=== PATIENT | male | born 1955 | race Caucasian/White ===

== ENCOUNTER 2019-04-01 01:46 | Inpatient (IN) | payer MEDICARE, MEDICAID, SELFPAY ==
[2017-06-25 19:14] VITALS: BMI 38.5
[2019-04-01] VITALS (16 sets, daily range): BP systolic 112–153; BP diastolic 71–94; PULSE 63–134; RESP 14–23; TEMP 36.5–36.8; O2SAT 93–97; BMI 39.9
--- NOTE | 2019-04-01 02:00 | EKG12_ITS ---
Test Reason : AM EKG Blood Pressure : / mmHG Vent. Rate : 107 BPM Atrial Rate : 127 BPM P-R Int : 000 ms QRS Dur : 078 ms QT Int : 376 ms P-R-T Axes : 000 022 177 degrees QTc Int : 501 ms Atrial fibrillation with rapid ventricular response ST & Marked T wave abnormality, consider anterolateral ischemia Abnormal ECG Confirmed by LIDIA JONES, JOSUE ([id number]), slot editor BETTY LILLY ([id number]) on 04/03/2019 2:33:55 PM Referred By: DIANA Confirmed By:JOSUE MURILLO MD
--- NOTE | 2019-04-01 03:49 | PCM.HP.STD ---
Problem List (1) NSTEMI (non-ST elevated myocardial infarction) Status: Acute (2) A-fib Status: Chronic (3) Tobacco abuse Status: Chronic (4) Overweight Status: Chronic (5) Hyperlipidemia Status: Chronic History of Present Illness Date of Admission: 04/01/19 Chief Complaint: chest pain Patient is a 53-year-old with a significant history of CAD status post stent; cardiomyopathy; tobacco abuse and atrial fibrillation status post unsuccessful DCCV who presented initially at [place] ED with progressively worsening excruciating chest pain that started about 45 minutes prior to presentation. He describes his chest pain as intense pressure. His chest pain span across his entire chest; from right to left. Although the chest pain was mostly centered at the substernal area. His chest pain radiated to his bilateral jaw and to his bilateral arms. The pain on his right was more prominent than his left arm. He describes the pain in his arm as numbness and tingling. His chest pain started when he was rolling a cover over a swimming pool. Associated with his symptoms is diaphoresis and SOB. Patient was found with A. fib and RVR at ED with ventricular rate of 129. He was given Cardizem IV 20 mg bolus x2 and his ventricular rate dropped to 93 but he was still in A. fib. His initial troponin at [place] ED was 0.015 which was normal. His troponin increased to 0.89 which is within the critical range at the lab at [place] [facility]. Patient received aspirin 324 mg at the emergency department and was given therapeutic Lovenox at 2309 (03/31/2019). He takes his Xarelto and other medications intermittently because of affordability. He reports that on the day of presentation he took his Xarelto. Also he took his Plavix before going to the emergency department. His white count was 12,400. Chest x-ray showed mild diffuse interstitial prominence which may be related to fibrosis. Patient was empirically on ceftriaxone and azithromycin (03/31/2019 at time of 2018). Although, the emergency department doctor at [place] reported that patient had a cough and some mild chills; upon arrival at our hospital ([facility]) patient denies coughing or having chills. BNP was unremarkable. Past Medical History Past Medical History (Chronic Problems): Chronic Problems (Last Updated 02/09/18 @ 08:01 by Karolina Hand) A-fib (Chronic) Presence of stent in coronary artery (Chronic) PTCA/BMS to prox/mid RCA with thrombectomy in the mid RCA09/05; PTCA/YAQUELIN of the in stent restenosis in the prox to mid RCA and mid to distal RCA 02/12/13; PTCA/YAQUELIN to the mid CX @ [facility] 08/29/14 Cardiomyopathy (Chronic) Persistent atrial fibrillation (Chronic) Hypertension (Chronic) Atherosclerotic heart disease of [place] coronary artery without angina pectoris (Chronic) Tobacco abuse (Chronic) Overweight (Chronic) Hyperlipidemia (Chronic) Medical History: Medical History (Last Reviewed 04/01/19 @ 04:50 by Kemal Thao MD) 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) I25.2 09/05 Cardiomyopathy (Chronic) I42.9 Persistent atrial fibrillation (Chronic) I48.1 Hypertension (Chronic) I10 Atherosclerotic heart disease of [place] coronary artery without angina pectoris (Chronic) I25.10 Abscess of deep perineal space (Inactive) N34.0 Tobacco abuse (Chronic) Z72.0 Overweight (Chronic) E66.3 Hyperlipidemia (Chronic) E78.5 Allergies No Known Allergies Allergy (Verified 07/10/17 14:25) Home Medications: Ambulatory Orders Medication Instructions Recorded Nitroglycerin (INPATIENT USE) 0.4 mg SL PRN 03/26/13 [Nitrostat] carvedilol 6.25 mg tablet 6.25 mg PO BID #60 tab 02/08/18 clopidogrel 75 mg tablet 75 mg PO DAILY #30 tab 02/08/18 digoxin 125 mcg tablet 125 mcg PO DAILY #30 tab 02/08/18 pravastatin 80 mg tablet 80 mg PO QHS #30 tab 02/08/18 rivaroxaban 20 mg tablet 20 mg PO DAILY #30 tab 02/08/18 Surgical History: Surgical History (Last Reviewed 04/01/19 @ 04:50 by Kemal Thao MD) Presence of stent in coronary artery (Chronic) Z95.5 PTCA/BMS to prox/mid RCA with thrombectomy in the mid RCA09/05; PTCA/YAQUELIN of the in stent restenosis in the prox to mid RCA and mid to distal RCA 02/12/13; PTCA/YAQUELIN to the mid CX @ [facility] 08/29/14 Status post incision and drainage (Inactive) Z98.890 Karyn-rectal 06/25/17 Postsurgical percutaneous transluminal coronary angioplasty (PTCA) status Z98.61 PTCA/BMS to prox/mid RCA with thrombectomy in the mid RCA09/05; PTCA/YAQUELIN of the in stent restenosis in the prox to mid RCA and mid to distal RCA 02/12/13; PTCA/YAQUELIN to the mid CX @ [facility] 08/29/14 Smoking Status: Heavy Smoker (>10/day) Tobacco Use: Cigarettes - *Family History Maternal Family History: Family History (Last Reviewed 04/01/19 @ 04:51 by Kemal Thao MD) Father CAD (coronary artery disease) COPD (chronic obstructive pulmonary disease) Mother CAD (coronary artery disease) Brother CAD (coronary artery disease) Brother CAD (coronary artery disease) Other Heart disease History Items: Heart Disease Review of Systems Constitutional: Denies: Chills, Fever, Weight Change HEENT: Denies: Head Aches, Sinus Congestion, Sinus Drainage Cardiovascular: Reports: Chest Pain, Chest Pressure. Denies: Palpitations Respiratory: Reports: Shortness of Breath. Denies: Cough, Sputum production Gastrointestinal: Denies: Abdominal Pain, Nausea, Vomiting Genitourinary: Denies: Dysuria Musculoskeletal: Denies: Joint Pain, Joint Tenderness Skin: Denies: Rash, Wounds Neurological: Reports: Numbness, Tingling. Denies: Focal weakness Psychiatric: Denies: Anxiety, Depression, Homicidal Ideations, Suicidal Ideations Hematologic/ Lymphatic: Denies: Easy Bruising, Easy Bleeding VTE Information - Inpt Only VTE Present on Admission: No VTE Mechan Device Prophylaxis: None VTE Pharm Prophylaxis ordered?: No Reason prophylaxis not ordered:: Treatment Not Indicated - Recieved ther Patient Problems: Active and Suspected Problems (Last Updated 02/09/18 @ 08:01 by Karolina Hand) NSTEMI (non-ST elevated myocardial infarction) (Acute) - Physical Exam General: Alert, Oriented x3, Cooperative HEENT: Atraumatic, PERRLA, EOMI, Normocephalic Neck: Supple, No JVD, Negative Carotid Bruits Lungs: Clear to auscultation, Normal air movement, Wheezes - Expiratory Cardiovascular: Normal S1, Normal S2, No murmurs, Irregular Rate Abdomen: Bowel Sounds Present, Soft, Non Tender Extremities: No edema, Capillary Refill Less than 3 Seconds Skin: No rashes, No breakdown Musculoskeletal: No Tenderness to Palpation of Joints or Extremities Neurological: Cranial nerves II-XII grossly intact Psych/Mental Status: Normal Affect, Appropriate Vital Signs Temp Pulse Resp BP Pulse Ox 97.7 F L 92 16 114/79 96 04/01/19 01:52 04/01/19 01:52 04/01/19 01:52 04/01/19 01:52 04/01/19 01:52 Oxygen Delivery Method Room Air Weight: 119 kg Body Mass Index (BMI) 39.9 Laboratory Tests Past 24 Hrs 04/01/19 03:12 Troponin I 12.600 H* Assessment/Plan All Active Problems (Last Updated 02/09/18 @ 08:01 by Karolina Hand) NSTEMI (non-ST elevated myocardial infarction) (Acute) Patient is a 53-year-old with a significant history of CAD status post stent; cardiomyopathy; tobacco abuse and atrial fibrillation unsuccessful DCCV who presented initially at [place] ED with typical chest pain and with elevated troponin consistent with non-ST elevation NM . NSTEMI Place on a monitored bed at PCU CXR independently reviewed confirms no acute cardiopulmonary process. Chest x-ray showed mild diffuse interstitial prominence which may be related to fibrosis. I agree with with radiologist interpretation. EKG from [place] ED was reviewed. It showed atrial fibrillation with ventricular rates of 129. EKG was done at the hospital and it showed ventricular rates in the 80s with patients in A. fib. ASA 81 mg p.o. daily. At home he does not take aspirin because he is on Xarelto and Plavix. SL NTG 0.4 mg prn as needed for chest pain Morphine as needed for pain We will check lipid panel. Statin: Patient is on pravastatin 80 mg nightly; continue. Troponin from [place] ED was 0.015. While at [place] ED it stephen to 0.89. At our hospital ([facility]) initial troponin was 12.6 . That was markedly elevated above previous value from [place] ED so a repeat (stat) was ordered to confirm. The repeat troponin done at 38 minutes apart was 12.90. We will continue serial troponin. Of note patient received therapeutic dose of Lovenox as stated in HPI. Also patient took Plavix before going to [place] emergency department. And patient was given 325 mg of aspirin at [place] ED. He reported that he took his Xarelto on 03/31/2019. Continue Plavix. Stat EKG as needed for chest pain. We will get PT/INR and will start patient on gentle IV hydration. We will keep patient n.p.o. Cardiology Consult. Discussed with patient about case management/rn social work consult to discuss finances for medication. However, Patient declined stating that he should be able in a position to afford his medications. Afib Place on PCU on telemetry Serial cardiac enzymes as above. Anticoagulation as above. Potassium at was 12 emergency department was 4.0. Magnesium was 2.0. TSH was unremarkable. Continue digoxin. Continue metoprolol. Of note patient received Cardizem IV bolus at [place] emergency department as mentioned in HPI. Dsypnea Secondary to non-ST elevation NM on pulmonary fibrosis. Patient has no fever. Although he had leukocytosis of 12,400 this could be reactive. Trend CBC Clinical monitoring with no antibiotics at this time. He has some wheezes on auscultation but this could be because of smoking. Will defer albuterol for now as it might increase his heart rate. Tobacco abuse Counseled Declined nicotine patch. Elevated creatinine His creatinine at was [place] ED was 1.31. Review of old records show that this is within his baseline. Trend BMP DVT Prophylaxis Took Xarelto in the last 24 hours. Received therapeutic dose of Lovenox in less than 12 hours. Code Visit Inpatient E&M: 24268 Init Hosp L3
[2019-04-01] MEDS: 0.9% Normal Saline 1,000 ML 75 ML IV (04:19)
[2019-04-01 04:47] LABS: Cholesterol 143 mg/dL (200); High Density Lipoprotein 32 mg/dL; Triglycerides 194 mg/dL; Very Low Density Lipoprotein 39 mg/dL (5-40)
[2019-04-01 06:06] LABS: International Normalized Ratio 1.2; Prothrombin Time (Protime)PT. 15.2 SECONDS (11.7-14.9)
[2019-04-01] MEDS: Clopidogrel Bisulfate 75 MG Tablet PO (06:40)
[2019-04-01] MEDS: Carvedilol 6.25 MG Tablet PO ×2 (06:40→10:24)
[2019-04-01] MEDS: Aspirin E.C. 81 MG Tablet PO (06:40)
[2019-04-01] MEDS: Digoxin 125 MCG Tablet PO (06:40)
--- NOTE | 2019-04-01 08:44 | ECHOD_ITS ---
Reason For Study: CP Procedure This was a 2D Doppler, Color Flow transthoracic echocardiogram. Exam performed portable in patient room. Left Ventricle Normal LV size. Moderate concentric left ventricular hypertrophy. Severe segmental systolic dysfunction (see wall motion). The estimated ejection fraction is 20 %. Unable to assess diastolic dysfunction. Infero-Basal: Hypokinetic. Mid-Anterior : Hypokinetic. Mid-Lateral : Hypokinetic. Mid- Posterior: Hypokinetic. Mid-Inferior: Hypokinetic. Mid-inferoseptal : Akinetic. Mid-anteroseptal : Akinetic. [place] : Akinetic. Right Ventricle Normal RV size. Normal systolic function. Atria The left atrium is moderately enlarged. The right atrium is mildly enlarged. No doppler evidence for ASD. Mitral Valve There is mild mitral annular calcification. Extension of the mitral annular calcification onto the posterior mitral valve leaflet. Trivial mitral valve insufficiency. Tricuspid Valve Normal tricuspid valve. Mild tricuspid valve insufficiency. Right ventricular systolic pressure estimated to be 53 mmHg. Aortic Valve Trisinus/trileaflet aortic valve. Normal aortic valve. Pulmonic Valve The pulmonic valve is not well visualized. Trivial eccentric pulmonic valve insufficiency. Great Vessels The aortic root is not well visualized. Pericardium/Pleural No pericardial effusion. MMode/2D Measurements & Calculations LVIDd: 4.7 cm IVSd: 1.5 cm LA dimension: 4.0 cm LVIDs: 3.7 cm LVPWd: 1.4 cm RVDd: 2.9 cm FS: 20.8 % LAV(MOD-bp): 59.8 ml LVAd ap4: 28.1 cm2 SV(MOD-sp4): 14.7 ml LAV(MOD-bp) Indexed: 26.3 ml/m2 EDV(MOD-sp4): 86.4 ml LAV(MOD-sp2): 62.4 ml EDV(sp4-el): 85.6 ml LAV(MOD-sp4): 55.6 ml LVAs ap4: 25.3 cm2 ESV(MOD-sp4): 71.6 ml ESV(sp4-el): 70.6 ml EF(MOD-sp4): 17.1 % EF(sp4-el): 17.5 % SV(sp4-el): 15.0 ml LA A4 area: 19.8 cm2 Doppler Measurements & Calculations MV E max thony: 100.7 cm/sec Ao V2 max: 97.2 cm/sec LV V1 max: 78.6 cm/sec Ao max P.8 mmHg LV V1 max P.5 mmHg PA V2 max: 77.7 cm/sec TR max thony: 354.1 cm/sec TR max P.2 mmHg Interpretation Summary Severe segmental systolic dysfunction (see wall motion). The estimated ejection fraction is 20 %. Moderate concentric left ventricular hypertrophy. The left atrium is moderately enlarged. The right atrium is mildly enlarged. There is mild mitral annular calcification. Extension of the mitral annular calcification onto the posterior mitral valve leaflet. Trivial mitral valve insufficiency. Mild tricuspid valve insufficiency. Trivial eccentric pulmonic valve insufficiency. Right ventricular systolic pressure estimated to be 53 mmHg. Unable to assess diastolic dysfunction. Ordering Physician: Andrew Anaya MD Referring Physician: Brock Connor Performed By: Damian Ramos RCS
[2019-04-01 09:08] LABS: Partial Thromboplast Time 36.3 Seconds (24.1-36.2)
--- NOTE | 2019-04-01 09:34 | PN_ITS ---
Patient Problems: Active and Suspected Problems (Last Reviewed 04/01/19 @ 04:50 by Kemal Thao MD) NSTEMI (non-ST elevated myocardial infarction) (Acute) Subjective: Patient was admitted in the early hours of 04/01/2019 with a complaint of chest pain started about 45 minutes prior to presentation. He described it as an immense pressure which radiated up towards neck and was mainly substernal. He also had assisted diaphoresis and shortness of breath and was found to be in A. fib with RVR was in the emergency room. Heart rate stabilized with Cardizem bolus no history repeat A. fib. Initial troponin done at [place] emergency department was 0.015 which trended up to 0.89. He was given aspirin and given a dose of therapeutic Lovenox and transferred to [place]. On arrival, repeat troponin was 12. He has been managed for non-STEMI. Patient seen and examined. He denies any chest pain. He has no complaints. Denies any palpitations or dizziness, diarrhea or vomiting. Review of systems otherwise negative. Labs and vitals reviewed. Budget Examiner on board. Vitals/I&O's: Vital Signs Temp Pulse Resp BP Pulse Ox 97.9 F 93 14 153/85 H 96 04/01/19 07:54 04/01/19 07:54 04/01/19 08:02 04/01/19 07:54 04/01/19 08:02 Oxygen Delivery Method Room Air Weight: 262 lb 5.601 oz Body Mass Index (BMI) 39.9 Intake and Output for Last 24 Hours 03/30/19 03/31/19 04/01/19 23:59 23:59 23:59 Intake Total 50 / 50 Balance 50 / 50 General: Alert, Oriented x3, Cooperative, No apparent distress HEENT: Atraumatic, PERRLA, EOMI, Normocephalic Oral: Moist Mucosa Neck: Supple Lungs: Clear to auscultation, Normal air movement Cardiovascular: Normal S1, No murmurs, Irregular Rate - in Afib, rate controlled Abdomen: Bowel Sounds Present, Soft, Non Tender Extremities: No clubbing, No cyanosis, No edema, Capillary Refill Less than 3 Seconds Skin: No rashes, No breakdown Musculoskeletal: No Tenderness to Palpation of Joints or Extremities Lymphatic: No Cervical, Supraclavicular, or Inguinal Adenopathy Neurological: Cranial nerves II-XII grossly intact, Neuro grossly intact, Motor Exam 5/5 strength throughout Psych/Mental Status: Normal Affect, Appropriate, Alert and oriented to time, place, person, mood and affect Laboratory Results 04/01/19 03:12: Troponin I 12.600 H* 04/01/19 03:50: Troponin I 12.900 H* 04/01/19 03:50: Triglycerides 194, Cholesterol 143, LDL Cholesterol 72, VLDL Cholesterol 39, HDL Cholesterol 32 L 04/01/19 05:40: PT 15.2 H, INR 1.2 04/01/19 05:40: APTT 36.3 H Current Medications Aspirin (Ecotrin) 81 mg PO DAILY@0800 [facility] Last Admin: 04/01/19 06:40 Dose: 81 mg Documented by: Carvedilol (Coreg) 12.5 mg PO BID [facility] Clopidogrel Bisulfate (Plavix) 75 mg PO DAILY [facility] Last Admin: 04/01/19 06:40 Dose: 75 mg Documented by: Dextrose (D50w Syringe) 0 gm IV X1 PRN; Protocol PRN Reason: Hypoglycemia Digoxin (Lanoxin) 125 mcg PO DAILY [facility] Last Admin: 04/01/19 06:40 Dose: 125 mcg Documented by: Glucagon () 1 mg IM .X1 PRN PRN Reason: Hypoglycemia Heparin Sodium (Porcine) (Heparin Na) 0 unit IV UD PRN; Protocol Sodium Chloride () 1,000 mls @ 75 mls/hr IV .[id number] [facility] Stop: 04/01/19 16:59 Last Admin: 04/01/19 04:19 Dose: 75 mls/hr Documented by: Heparin Sodium/Dextrose () 25,000 units in 250 mls @ 16 mls/hr IV .[id number] [facility]; Protocol Morphine Sulfate () 2 mg IV Q3H PRN PRN PRN Reason: Severe Pain (7-10/10) Nitroglycerin (Nitrostat) 0.4 mg SUBLINGUAL Q5M PRN PRN Reason: CARDIAC/CHEST PAIN Ondansetron HCl (Zofran) 4 mg IV Q8H PRN PRN PRN Reason: NAUSEA/VOMITING Pravastatin Sodium (Pravachol) 80 mg PO QHS [facility] Sodium Chloride () 5 - 15 ml IV UD PRN PRN Reason: SALINE FLUSH Medical Necessity - Tobacco Use Smoking Status: Heavy Smoker (>10/day) Tobacco Use: Cigarettes Assessment/Plan All Active Problems (Last Reviewed 04/01/19 @ 04:50 by Kemal Thao MD) NSTEMI (non-ST elevated myocardial infarction) (Acute) 1. NonSTEMI * troponin trended up to 12.9 * received therapeutic lovenox, also on plavix * on SL nitroglycerin prn and aspirin, as well as high intensity statin * cardiology on board; for cardiac cath today * 2.CAD s/p stents: on aspirin, plavix and statin and carvedilol. 3. Afib: * was in Afib with RVR on admission to the ED: HR improved after being given cardizem bolus, but is now better. on digoxin and carvedilol * failed direct cardioversion in the past * on xarelto; had not been compliant with it due to inability to afford it regularly. * 4. Elevated Cr: Cr on admission from [place] ED was 1.31. baseline from our records is ~ 1. WIll repeat BMP this morning and review Cr 5. Nicotine dependence: smokes ~ 1.5 packs daily. Counselled to quit. DVT prophylaxis: therapeutic lovenox Code Visit Inpatient E&M: 52285 Subs Hosp L3
[2019-04-01 10:18] LABS: Anion Gap 6 (5-15); BUN 11 mg/dL (7-18); BUN/Creat Ratio 12.3 RATIO (10-20); Calcium,Total 8.7 mg/dL (8.5-10.1); Chloride 105 mmol/L (98-107); EST Glomerular Filtration Rate 92 mL/min (>60); Est Glom Filt Rate - Afr Amer 111 mL/min (>60); Estimated Creatinine Clearance 83.39 ml/min; Glucose 101 mg/dL (74-106); Sodium Level 137 mmol/L (136-145)
[2019-04-01] MEDS: HEPARIN/D5w 25,000 UNITS 25,000 UNITS/250 ML IV.SOLN. 16 UNITS IV (10:26)
--- NOTE | 2019-04-01 10:51 | CON.PCM_ITS ---
Problem List (1) A-fib Status: Chronic (2) NSTEMI (non-ST elevated myocardial infarction) Status: Acute (3) CAD in [place] artery Status: Chronic (4) Presence of stent in coronary artery Status: Chronic Comment: PTCA/BMS to prox/mid RCA with thrombectomy in the mid RCA09/05; PTCA/YAQUELIN of the in stent restenosis in the prox to mid RCA and mid to distal RCA 02/12/13; PTCA/YAQUELIN to the mid CX @ [facility] 08/29/14 (5) Cardiomyopathy Status: Chronic (6) Hyperlipidemia Status: Chronic (7) Hypertension Status: Chronic Reason for Consult Date of Consultation: 04/01/19 History of Present Illness: The patient is a 63 year old white male with a past medical history of lipidemia, hypertension, CAD, PCI, ischemic mediated cardiomyopathy, atrial fibrillation, who resents for evaluation of ongoing concerns of chest discomfort, neck discomfort, right upper extremity discomfort/paresthesias, weakness of breath, nausea, sensation of an elevated heart rate, and subsequent findings of atrial fibrillation with RVR and abnormal cardiac enzymes compatible with a non-ST segment elevation FL. He states that after his over a year ago he decided to give up. He did not keep his outpatient cardiovascular follow-up appointments. He states he has not been compliant with his medications. He notes he takes them at times and then at other times does not. He states that he is not been feeling well for some time now. Yesterday while helping someone else with a swimming pool cover he developed the aforementioned symptoms. He elected to present to his local emergency department. He was evaluated there and found to have concerns of his cardiovascular disease and was subsequently transferred to [facility] for further evaluation and care. He notes overall he does feel somewhat better at this time. However, he states he knows he is not normal. He admits to have symptoms occasionally compatible with orthopnea. He states he does have lower extremity edema that waxes and wanes. He has had no near syncope or syncope. He believes his heart rate has been elevated for some time. He states that he has taken his antiplatelet and anticoagulant therapy on and off. He knows he took both of them yesterday. However, he states that he does not recall taking them for several days prior to yesterday. He has had abnormal troponin I levels. They have increased. His ECG is demonstrated atrial fibrillation. His ECG does demonstrate T wave changes potentially compatible with myocardial ischemia in the anterolateral distribution. He has been treated medically. This is included restarting medical management with antiplatelet therapy and anticoagulant therapy, his beta-shawn therapy, his additional rate control therapy with his digitalis, and his lipid-lowering therapy. [] Past Medical History Allergies/Adverse Reactions: Allergies No Known Allergies Allergy (Verified 07/10/17 14:25) Home Medications: Ambulatory Orders Medication Instructions Recorded Nitroglycerin (INPATIENT USE) 0.4 mg SL PRN 03/26/13 [Nitrostat] carvedilol 6.25 mg tablet 6.25 mg PO BID #60 tab 02/08/18 clopidogrel 75 mg tablet 75 mg PO DAILY #30 tab 02/08/18 digoxin 125 mcg tablet 125 mcg PO DAILY #30 tab 02/08/18 pravastatin 80 mg tablet 80 mg PO QHS #30 tab 02/08/18 rivaroxaban 20 mg tablet 20 mg PO DAILY #30 tab 02/08/18 Past Medical History (Chronic Problems): Chronic Problems (Last Reviewed 04/01/19 @ 04:50 by Kemal Thao MD) A-fib (Chronic) CAD in [place] artery (Chronic) Presence of stent in coronary artery (Chronic) PTCA/BMS to prox/mid RCA with thrombectomy in the mid RCA09/05; PTCA/YAQUELIN of the in stent restenosis in the prox to mid RCA and mid to distal RCA 02/12/13; PTCA/YAQUELIN to the mid CX @ [facility] 08/29/14 Cardiomyopathy (Chronic) Persistent atrial fibrillation (Chronic) Hypertension (Chronic) Atherosclerotic heart disease of [place] coronary artery without angina pectoris (Chronic) Tobacco abuse (Chronic) Overweight (Chronic) Hyperlipidemia (Chronic) - *Family History Maternal Family History: Family History (Last Reviewed 04/01/19 @ 04:51 by Kemal Thao MD) Father CAD (coronary artery disease) COPD (chronic obstructive pulmonary disease) Mother CAD (coronary artery disease) Brother CAD (coronary artery disease) Brother CAD (coronary artery disease) Other Heart disease History Items: Heart Disease Smoking Status: Heavy Smoker (>10/day) Tobacco Use: Cigarettes Review of Systems - Review of Systems General: Denies: Fever, Night Sweats, Fatigue Cardiovascular: Reports: Chest Discomfort, Chest Discomfort at Rest, Shortness of Breath, Orthopnea. Denies: PND, Peripheral Edema, Palpitations, Ligh theadedness, Dizziness, Near Syncope, Syncope Respiratory: Reports: Shortness of Breath. Denies: Cough, Sputum Production, Hemoptysis Gastrointestinal: Reports: Nausea. Denies: Hematemesis, Hematochezia, Melena Genitourinary: Denies: Dysuria, Hematuria Skin: Denies: Rash Subjectve: This is a 63-year-old white male lying in the supine position who appears to be resting reasonably comfortably at this time. Objective: Vital Signs Temp Pulse Resp BP Pulse Ox 98.0 F 63 18 112/83 H 94 04/01/19 10:23 04/01/19 10:23 04/01/19 10:23 04/01/19 10:23 04/01/19 10:23 Oxygen Delivery Method Room Air Weight: 262 lb 5.601 oz Body Mass Index (BMI) 39.9 Intake and Output for Last 24 Hours 03/30/19 03/31/19 04/01/19 23:59 23:59 23:59 Intake Total 50 / 50 Balance 50 / 50 General: Awake, Alert, Oriented x 3, Cooperative, No Acute Distress HEENT: Atraumatic, Normocephalic, PERRL, EOMI, Sclera Non Icteric Oral: Moist Mucosa Neck: Supple, Good ROM, No JVD Lungs: Clear to auscultation Cardiovascular: Irregular Rhythm, Normal S1, Normal S2 Vascular: No Carotid Bruits Abdomen: Bowel Sounds Present, Soft, Non Tender Extremities: Trace RLE Edema, Trace LLE Edema Neurological: No Focal Motor or Sensory Deficit Psych/Mental Status: Depressed 04/01/19 03:12: Troponin I 12.600 H* 04/01/19 03:50: Troponin I 12.900 H* 04/01/19 03:50: Triglycerides 194, Cholesterol 143, LDL Cholesterol 72, VLDL Cholesterol 39, HDL Cholesterol 32 L 04/01/19 05:40: PT 15.2 H, INR 1.2 04/01/19 05:40: APTT 36.3 H 04/01/19 05:40: Sodium 137, Potassium 4.0, Chloride 105, Carbon Dioxide 26.0, Anion Gap 6, BUN 11, Creatinine 0.90, Est GFR (MDRD) Af Amer 111, Est GFR (MDRD) Non-Af 92, BUN/Creatinine Ratio 12.3, Glucose 101, Calcium 8.7 Rhythm: Atrial fibrillation EKG: Atrial fibrillation; T wave abnormality-consider myocardial ischemia- anterolateral ECHO: 04-07-17: Interpretation Summary The study was technically difficult. Mild segmental systolic dysfunction (see wall motion). The estimated ejection fraction is 50 %. The left atrium is moderately enlarged. The right atrium is mildly enlarged. There is mild mitral annular calcification. Trivial mitral valve insufficiency. Trivial tricuspid valve insufficiency. Mild focal aortic valve calcification. Unable to estimate RV systolic pressure/pulmonary artery pressure due to technically difficult study. Transesophageal echocardiogram: 12-18-12 Interpretation Summary Mild segmental systolic dysfunction (see wall motion). The estimated ejection fraction is 45 %. The left atrium is enlarged. There is mild sponatenous contrast in the left atrium, No thrombus is detected in the left atrial appendage. The right atrium is enlarged. No obvious RA / appendage thrombus identified. Trivial mitral valve insufficiency. Trivial tricuspid valve insufficicncy. Trivial pulmonic valve insufficiency. Bubble contrast study negative far right to left intcratrial shunt. Normal appearing thoracic aorta. Stress Test: 08-05-14 IMPRESSION: 1. Rest and stress SPECT Cardiolite nuclear imaging demonstrate myocardial perfusion changes appearing compatible with an area of previous myocardial injury/infarction with periinfarct related myocardial ischemia especially involving the mid inferior segments. 2. The gated Cardiolite study reports an LVEF of 49%. Cardiac Cath: 08-29-14 1. Relatively normal resting left ventricular end-diastolic pressure 2. Left ventricle: Hypokinesis of the basal inferior segment with an estimated LVEF of 55% 3. Left main coronary artery: Large short vessel-angiographic normal 4. Left anterior descending coronary artery: Diffuse minimal luminal irregularities 5. Left circumflex coronary artery: Proximal 75% smooth eccentric appearing stenosis followed by distal 10 to 25% appearing stenosis 6. Right coronary: Large dominant vessel: Proximal to mid stented segment patent with minimal luminal irregularities with distal minimal luminal irregularities PCI: 08-29-14: [facility]: Single drug-eluting stent placed to the 70% lesion of the mid circumflex artery with minimal residual stenosis 02-12-13: [facility]: Successful stenting of the 75% in-stent restenosis of the proximal RCA and 75% stenosis in the mid RCA in-stent [id number] 09-23-12: [facility]: Accessible bare-metal stenting of the 80% stenosis in the proximal RCA and successful thrombectomy and successful bare-metal stenting of the 90% stenosis in the mid RCA DC cardioversion: Operative Report (Bank Date of Procedure: 03/26/13 Procedure: Synchronized biphasic DC cardioversion Indications Atrial fibrillation Consent: Per patient Anesthesia: Per CLEANING MANAGER with propofol 100 mg IV push xl Procedure: Synchronized biphasic DCcardioversion: 2002 xl: Result: Sinus rhythm with subsequent return to atrial fibrillation Synchronized biphasic DCcardioversion: 3003 xl: Results: Sinus rhythm Complications: No apparent complications Assessment/Plan 1. Atrial fibrillation The patient has ongoing atrial fibrillation. He will need continued combination therapy. This will include rate control therapy and anticoagulant therapy. Over time depending upon his clinical course he may need additional antiarrhythmic therapy. He has had in the past DC cardioversion to regain sinus rhythm. According to the past medical record this was last performed on 03-26-13. In conjunction with proceeding with his atrial fibrillation evaluation care he will also need evaluation care of his underlying CAD and non-ST segment elevation FL. 2. Non-ST segment elevation FL The patient has findings compatible with a non-ST segment elevation FL. He has a history of CAD and is undergone PCI in the past. He will need to be monitored. He will continue medical therapy. He should be considered for further evaluation with diagnostic cardiac catheterization. The procedure and risks were discussed with him. He was agreeable to this approach. However prior to proceeding with such, it would be reasonable based on his anticoagulation status with his oral anticoagulants, to allow those medications to dissipate somewhat prior to having an invasive procedure in attempt to minimize any obvious adverse hemorrhagic events. 3. CAD status post PCI The patient will need to be monitored as noted above. He will continue medical therapy as deemed appropriate. He will proceed with further noninvasive and invasive evaluation as deemed appropriate over time. 4. Cardiomyopathy The patient will have reevaluation of his left ventricular wall motion systolic function with a transthoracic echocardiogram as he goes through his ongoing evaluation and care. 5. Hyperlipidemia He will continue risk factor evaluation and care. 6. Hypertension The patient's blood pressure will be followed. He will continue medical management. Comment: The patient's case was discussed and reviewed with the patient and previously with the [facility] staff. This note was generated using a voice recognition system and there may be incorrect words, spelling or punctuation that were not noted when reviewing the office note prior to saving.
--- NOTE | 2019-04-01 11:43 | CASEMGMT ---
SW reviewed chart and noted patient was depressed. SW met with patient, introduced self and role at [facility]. SW asked patient how things were going and he said he was ok. He said he is just worried about his cat. He said his cat and sisters is all he has as his 1 1/2 years ago. Sw asked if he has gone to any support groups to help him cope with his loss. He said he has not and he will be fine. SW asked about medications. He said he has not been getting them as he has co-pays and forgot to pick the medicine up. He has a PCP, but he has not seen him in awhile. He said he doesn't go to the doctor unless he is practically dying. SW offered a list of local mental health providers and/or support groups, but patient declined. He said he will be fine and thanked MONIKA for caring. SW told him no problem and if he changes his mind and feels like he would like to talk more he can always ask for Social Work. Bonny LEE MSW
--- NOTE | 2019-04-01 13:10 | CASEMGMT ---
[facility], the following are in-network tertiary facilities: [facility], [facility], [facility], [facility], [facility], [facility], [facility], [facility], [facility], and . Mack KING CM
--- NOTE | 2019-04-01 13:56 | CASEMGMT ---
CHRISTINE GALLEGOS assessment: Face to Face with patient for initial transition planning/care coordination assessment. CHRISTINE GALLEGOS introduced self and role at [facility], pt voices understanding and consents to assessment at this time. Pt is sitting up in bed eating lunch in no distress at this time. Pt is A/Ox4 at this time and answers all questions appropriately at this time. Care providers, pharmacy, and demographics verified/updated at this time. Pt's address, account contact associate, and phone numbers were all incorrect at this time. PCP: [facility] Specialists: Pt states no current specialists at this time. Preferred Pharmacy: [facility] Insurance: [facility] Prescription Benefit: Yes Living Will/HPOA: Pt states does not have LW/HPOA and declines info at this time. LNOK: Kate Bauer, sister-pt cannot remember sister's phone number at this time but will attempt to obtain. Living Arrangements: Pt states lives with sister and her boyfriend in 1 story home and states no concerns at home at this time. Pt is independent with ADL's. Transportation: Pt states family/friends drive and states has transportation concerns at times but states does have resources for same. DME/HHC: Pt states does not have any current DME and denies need for any at this time. Pt states does not have hx of HHC or SNF in the past. Pt states no concerns with going home at time of discharge. Pt states is disabled. Pt states smokes 1.5pack/day but does not drink ETOH. Pt states no further concerns/needs at this time. CM to follow for any further discharge planning/needs. Advised pt to ask for CM if any further questions/concerns/needs arise, voices understanding. Pt Goal: Home Plan: [place] CHRISTINE GALLEGOS
[2019-04-01 17:18] LABS: Partial Thromboplast Time 81.3 Seconds (24.1-36.2)
[2019-04-01] MEDS: Carvedilol 12.5 MG Tablet PO (21:48)
[2019-04-01] MEDS: Pravastatin 80 MG Tablet PO (21:48)
[2019-04-01 23:26] LABS: Partial Thromboplast Time 72.6 Seconds (24.1-36.2)
[2019-04-02] VITALS (31 sets, daily range): BP systolic 95–143; BP diastolic 68–99; PULSE 83–109; RESP 13–26; TEMP 36.3–37; O2SAT 93–98; BMI 39.8
[2019-04-02] MEDS: 0.9% NaCl Peripheral Flush Adult/Peds IV ×2 (01:12→06:43)
--- NOTE | 2019-04-02 03:44 | NURSING ---
Pt declined heart cath teaching at this time.
[2019-04-02 05:40] LABS: Absolute Lymphocyte Count 2.36 X10^3/uL (0.83-4.51); Absolute Neutrophil Count 10.8 X10^3/uL (2.0-7.7); Basophil# 0.06 X10^3/uL; Basophil% 0.4 % (0-1); Eosinophil# 0.02 X10^3/uL; Eosinophils% 0.1 % (0-5); Hematocrit 48.4 % (40-54); Hemoglobin 16.1 g/dL (13.0-16.5); Lymphocyte # 2.36 X10^3/ul (4.0); Lymphocyte % 16.6 % (19-41); Mean Corp Hgb Conc 33.3 g/dL (32-36); Mean Corpuscular Hgb 30.6 pg (27.0-32.0); Mean Corpuscular Volume 91.8 fL (80-94); Mean Platelet Vol. 10.7 fl (6.2-12.0); Monocyte# 0.92 X10^3/uL; Monocyte% 6.5 % (0-10); NRBC Flagged by Analyzer 0 % (0-5); Neutrophil # 10.76 X10^3/uL (2.7-7.7); Neutrophil % 75.9 % (47-70); Platelet Count 189 K/mm3 (150-450); RBC Distribution Width CV 13.1 % (11.6-14.6); RBC Distribution Width SD 44.4 fl (35.1-43.9); Red Blood Count 5.27 M/mm3 (4.6-6.2); White Blood Count 14.2 K/mm3 (4.4-11.0)
[2019-04-02] MEDS: Digoxin 125 MCG Tablet PO (05:53)
[2019-04-02] MEDS: Carvedilol 12.5 MG Tablet PO ×2 (05:53→20:56)
[2019-04-02] MEDS: Aspirin E.C. 81 MG Tablet PO (05:53)
[2019-04-02] MEDS: Clopidogrel Bisulfate 75 MG Tablet PO (05:53)
--- NOTE | 2019-04-02 05:55 | EKG12_ITS ---
Test Reason : CP ADMIT Blood Pressure : / mmHG Vent. Rate : 083 BPM Atrial Rate : 084 BPM P-R Int : 000 ms QRS Dur : 078 ms QT Int : 384 ms P-R-T Axes : 000 030 152 degrees QTc Int : 451 ms Atrial fibrillation T wave abnormality, consider anterolateral ischemia Abnormal ECG Confirmed by LIDIA JONES, JOSUE ([id number]), map editor BETTY LILLY ([id number]) on 04/03/2019 2:39:45 PM Referred By: DR BROWN Confirmed By:JOSUE MURILLO MD
[2019-04-02 06:00] LABS: Partial Thromboplast Time 29.8 Seconds (24.1-36.2)
--- NOTE | 2019-04-02 06:26 | CCHN_ITS ---
Hospitalist Note Patient has non-ST. Underscore to review the EKG. EKG shows A. fib at 107 bpm with diffuse T wave inversion in anterolateral leads. There is no significant change from previous EKG of 1:57 AM except T waves are more deep; perhaps related to chest lead placement Patient has severe ischemic cardiomyopathy with EF 20%, segmental wall dysfun ction. Troponins are elevated. Schedule for heart cath in the morning.
[2019-04-02 06:31] LABS: Anion Gap 5 (5-15); BUN 11 mg/dL (7-18); BUN/Creat Ratio 12.6 RATIO (10-20); Calcium,Total 8.8 mg/dL (8.5-10.1); Chloride 105 mmol/L (98-107); Creatinine, Serum 0.87 mg/dL (0.70-1.30); EST Glomerular Filtration Rate 94 mL/min (>60); Est Glom Filt Rate - Afr Amer 114 mL/min (>60); Estimated Creatinine Clearance 86.26 ml/min; Glucose 111 mg/dL (74-106); Potassium 4.3 mmol/L (3.5-5.1); Sodium Level 135 mmol/L (136-145)
--- NOTE | 2019-04-02 06:38 | NURSING ---
No adjustments made to Heparin gtt at 05:20 as Heparin gtt is on hold for heart cath.
[2019-04-02] MEDS: 0.9% Normal Saline 1,000 ML 15 ML IV (06:45)
--- NOTE | 2019-04-02 08:17 | NURSING ---
Called report to Linh KING in lab[facility] rags
--- NOTE | 2019-04-02 09:21 | NURSING ---
Called report to Janice KING in ICU
--- NOTE | 2019-04-02 09:30 | PN_ITS ---
Patient Problems: Active and Suspected Problems (Last Reviewed 04/01/19 @ 04:50 by Kemal Thao MD) NSTEMI (non-ST elevated myocardial infarction) (Acute) Subjective: Patient seen and examined. He had no complaints overnight. Review of systems otherwise negative. He is for cardiac cath today. Vitals/I&O's: Vital Signs Temp Pulse Resp BP Pulse Ox 98.3 F 107 H 21 H 117/83 H 96 04/02/19 05:47 04/02/19 06:59 04/02/19 05:47 04/02/19 05:47 04/02/19 07:26 Oxygen Delivery Method Room Air Weight: 262 lb 5.601 oz Body Mass Index (BMI) 39.9 Intake and Output for Last 24 Hours 03/31/19 04/01/19 04/02/19 23:59 23:59 23:59 Intake Total 2130.8 / 2130.8 31.75 / 31.75 Output Total 770 / 770 0 / 0 Balance 1360.8 / 1360.8 31.75 / 31.75 General: Alert, Oriented x3, Cooperative, No apparent distress HEENT: Atraumatic, PERRLA, EOMI, Normocephalic Oral: Moist Mucosa Neck: Supple Lungs: Clear to auscultation, Normal air movement Cardiovascular: Normal S1, No murmurs, Irregular Rate - in Afib, rate controlled Abdomen: Bowel Sounds Present, Soft, Non Tender Extremities: No clubbing, No cyanosis, No edema, Capillary Refill Less than 3 Seconds Skin: No rashes, No breakdown Musculoskeletal: No Tenderness to Palpation of Joints or Extremities Lymphatic: No Cervical, Supraclavicular, or Inguinal Adenopathy Neurological: Cranial nerves II-XII grossly intact, Neuro grossly intact, Motor Exam 5/5 strength throughout Psych/Mental Status: Normal Affect, Appropriate, Alert and oriented to time, place, person, mood and affect Laboratory Results 04/01/19 05:40: Sodium 137, Potassium 4.0, Chloride 105, Carbon Dioxide 26.0, Anion Gap 6, BUN 11, Creatinine 0.90, Estim Creat Clear Calc 83.39, Est GFR (MDRD) Af Amer 111, Est GFR (MDRD) Non-Af 92, BUN/Creatinine Ratio 12.3, Glucose 101, Calcium 8.7 04/01/19 05:40: Troponin I 12.500 H* 04/01/19 16:28: APTT 81.3 H 04/01/19 23:10: APTT 72.6 H 04/02/19 05:22: WBC 14.2 H, RBC 5.27, Hgb 16.1, Hct 48.4, MCV 91.8, MCH 30.6, MCHC 33.3, RDW Std Deviation 44.4 H, RDW Coeff of Tami 13.1, Plt Count 189, MPV 10.7, Immature Gran % (Auto) 0.500, Neut % (Auto) 75.9 H, Lymph % (Auto) 16.6 L, Campbell % (Auto) 6.5, Eos % (Auto) 0.1, Baso % (Auto) 0.4, Absolute Neuts (auto) 10.8 H, Absolute Lymphs (auto) 2.36, Nucleated RBC % 0 04/02/19 05:22: Sodium 135 L, Potassium 4.3, Chloride 105, Carbon Dioxide 25.0, Anion Gap 5, BUN 11, Creatinine 0.87, Estim Creat Clear Calc 86.26, Est GFR (MDRD) Af Amer 114, Est GFR (MDRD) Non-Af 94, BUN/Creatinine Ratio 12.6, Glucose 111 H, Calcium 8.8 04/02/19 05:22: APTT 29.8 Current Medications Aspirin (Ecotrin) 81 mg PO DAILY@0800 [facility] Last Admin: 04/02/19 05:53 Dose: 81 mg Documented by: Carvedilol (Coreg) 12.5 mg PO BID [facility] Last Admin: 04/02/19 05:53 Dose: 12.5 mg Documented by: Clopidogrel Bisulfate (Plavix) 75 mg PO DAILY [facility] Last Admin: 04/02/19 05:53 Dose: 75 mg Documented by: Dextrose (D50w Syringe) 0 gm IV X1 PRN; Protocol PRN Reason: Hypoglycemia Digoxin (Lanoxin) 125 mcg PO DAILY [facility] Last Admin: 04/02/19 05:53 Dose: 125 mcg Documented by: Glucagon () 1 mg IM .X1 PRN PRN Reason: Hypoglycemia Heparin Sodium (Porcine) (Heparin Na) 0 unit IV UD PRN; Protocol Heparin Sodium/Dextrose () 25,000 units in 250 mls @ 16 mls/hr IV .[id number] [facility]; Protocol Last Admin: 04/02/19 02:21 Dose: Not Given Documented by: Sodium Chloride () 1,000 mls @ 15 mls/hr IV .Q48H [facility] Last Admin: 04/02/19 06:45 Dose: 15 mls/hr Documented by: Morphine Sulfate () 2 mg IV Q3H PRN PRN PRN Reason: Severe Pain (7-10/10) Nitroglycerin (Nitrostat) 0.4 mg SUBLINGUAL Q5M PRN PRN Reason: CARDIAC/CHEST PAIN Ondansetron HCl (Zofran) 4 mg IV Q8H PRN PRN PRN Reason: NAUSEA/VOMITING Pravastatin Sodium (Pravachol) 80 mg PO QHS [facility] Last Admin: 04/01/19 21:48 Dose: 80 mg Documented by: Sodium Chloride () 5 - 15 ml IV UD PRN PRN Reason: SALINE FLUSH Last Admin: 04/02/19 06:43 Dose: 10 ml Documented by: Medical Necessity - Tobacco Use Smoking Status: Heavy Smoker (>10/day) Tobacco Use: Cigarettes Assessment/Plan All Active Problems (Last Reviewed 04/01/19 @ 04:50 by Kemal Thao MD) NSTEMI (non-ST elevated myocardial infarction) (Acute) 1. NonSTEMI * was put on heparin drip yesterday * on aspirin and SL nitroglycerin, as well as high intensity statin * 2D echo showed moderate concentric LV hypertrophy, with EF of 20%, and hypokinesia and akinesia of the LV; RV is normal size and systolic function. Left atrium moderately enlarged. RVSP is ~ 53mmHg. Unable to assess diastolic function * cardiology on board; * he had cardiac cath today with successful PCI and drug eluting stent and pTCA to mLAD * patient was transferred to cardiac ICU afterwards for closer monitoring. * 2.CAD s/p stents: on aspirin, plavix and statin and carvedilol. 3. Afib: * currently rate controlled * on digoxin and carvedilol. * xarelto on hold. * * 4. Elevated Cr: Cr resolved. Cr today is 0.87. 5. Nicotine dependence: smokes ~ 1.5 packs daily. Counselled to quit. DVT prophylaxis: SCDs; was on heparin drip prior to cardiac cath Code Visit Inpatient E&M: 89160 Subs Hosp L3
[2019-04-02] MEDS: 0.9% Normal Saline 1,000 ML 100 ML IV (10:00)
--- NOTE | 2019-04-02 10:02 | CL.I_ITS ---
Patient Name: NIGEL ESPINOSA Study Date: 04/02/2019 Performing: Jennifer Saxena MD Ht: 68.11 inches 173 cm : 1955 Wt: 262.35 lbs 119 kg Age: 63 Gender: male BSA: 2.3 PROCEDURE(S) PERFORMED [id number] W OR WO PTCA, SINGLE CORONARY ARTERY CLINICAL PROFILE AND CO-MORBIDITIES Indications: Worsening Angina, Cardiomyopathy, Cardiac Arrythmia, Suspected CAD Heart Failure: None Stress/Imaging Stress/Image Study Performed: No Angina Classification Anginal Classification w/in 2 Weeks: CCS III CAD Presentations: Non-STEMI. CONCLUSIONS Successful PCI with Drug eluting stent and PTCA to the AD RECOMMENDATIONS Follow up with Dr. Jaclyn SIMON Indefinitley Plavix for at least 12 months DESCRIPTION OF PROCEDURE The patient arrived to the procedure lab. The risks and benefits of the procedure as well as a full d escription of our services here and current unavailability of surgical backup were fully explained to the patient and/or their significant other prior to the catheterization. The Timeout was completed, verifying the correct patient and procedure. The patient's procedural site was prepped and draped in the usual fashion. Local anesthetic was given subcutaneously to right radial region with Lidocaine 2% Using a modified Seldinger technique,arterial access was obtained via the right radial artery, a 6Fr sheath was inserted. Right Coronary Artery selective angiography was then performed in multiple view s using a 5 Fr. 4.0 Morgan catheter. Left Coronary Artery selective angiography was performed in multi ple views using a 5 Fr. 4.0 Morgan catheter. Left Ventriculography was performed in HA projection usi ng a 5 Fr. Pigtail catheter. LV to AO pullback pressures were then recorded.The images were reviewed and options discussed. A decision was then made to proceed with an Intervention, IVUS o r other adjunct procedure. XB 3 Guide catheter was inserted and engaged into the LCA. BMW Guide wire was advanced to the LAD . 2 x 8 Emerge Balloon catheter was inserted. Balloon catheter was advanced across lesion in the LAD, mid. PTCA balloon inflated at 10 atms for 10 secs. PTCA balloon inflated at 12 atms for 18 secs. PTC A balloon inflated at 12 atms for 14 secs. PTCA balloon inflated at 12 atms for 10 secs. 3 x 28 Eluni r Drug Eluting stent was advanced across the lesion in the LAD, mid. Angiogram performed post stent d eployment. The arterial sheath was pulled and a TR Band was applied for hemostasis 11cc air inserte d INTERVENTION INFORMATION LESION SITE: LAD (Mid) Lesion Complexity: High/C, chronic total occlusion: No, lesion at bifurcation: No, thrombus present: Yes, lesion length: 26 mm, culprit lesion: Yes, Previously treated lesion: No Pre Stenosis: 95 % Pre intervention JAGDEEP flow: 2 PROCEDURE: Drug Eluting Stent with pre dilatation. Post Stenosis: 0 % Post intervention JAGDEEP flow: 3 Lesion Devices: Vazquez .014 BMW [place] Straight 190cm Cordis 6 Fr XB3.0 100cm Guide Catheter Manish Sci EMERGE MR 2.00x08 BALLOON Cardinal Elunir YAQUELIN RX 3.0x28 Lesion Devices: Vazquez .014 BMW [place] Straight 190cm Cordis 6 Fr XB3.0 100cm Guide Catheter COMPLICATIONS No Complications PROCEDURE MEDICATIONS Fentanyl 50 mcg IV Versed 1 mg IV Oxygen: 2 L/min via nasal cannula Heparin diluted in 23cc Heparinized saline. Patient given 10cc IA of this solution. 04/02/2019 08:55: 03 Heparin 8000 unit(s) IV 04/02/2019 09:21:24 Verapamil 2.5mg, Ntg 100mcgs, 2000 units of Heparin diluted in 23cc Heparinized saline. Patient give n 10cc IA of this solution. 04/02/2019 08:55:03 SUMMARY OF HEMODYNAMIC DATA Time AIR REST ECG 08:37:14 AO 90/66 (79) SA 08:56:29 LV 133/12, 25 09:03:23 LV 141/8, 28 09:03:28 LV 140/10, 35 09:04:30 LV 144/11, 30 09:04:36 LVp 144/12, 32 09:04:45 AOp 124/89 (106) 09:04:50 Signed By Jennifer Saxena MD On 04/02/2019 10:01:41 Jennifer Saxena MD
--- NOTE | 2019-04-02 10:49 | CRPHASE1_ITS ---
Patient Communication Former Patient:: Phase II PHII Cardiac Rehab Discussed with Patient:: Yes Guide to Cardiac Rehab Given to Patient:: Yes Cardiac Rehab Facility Choice List Given to Patient:: Yes Choice Program [facility] [place]II:: Communication Given to CR, Refer to [employer] Risk Factors/Lifestyle Smoking Status: Current every day smoker - pt states he smoked 1.5 ppd ( past 30 yrs) Packs Smoked per Day: 2 Hx Hypertension: Yes Hx Diabetes Mellitus Type 1: No Hx Diabetes Mellitus Type 2: No Hx Metabolic Disorders: Yes Hx Dyslipidemia: Yes Hx Obesity: Yes Height: 5 ft 8 in Weight:: 262 lb BMI: 39.8 Stress: Recent - PT DOES NOT DESCRIBE STESS BUT SAYS HE CURRENTLY HAS STRESS ETOH: No Caffeine: Yes Substance Abuse: Yes - STATES HE SMOKES WEED ONCE IN A WHILE Risk Factor for Sedentary Lifestyle: Highest Risk - PT ADMITS TO LIMITED ACTIVITY Family History: Family History (Last Reviewed 04/01/19 @ 04:51 by Kemal Thao MD) Father CAD (coronary artery disease) COPD (chronic obstructive pulmonary disease) Mother CAD (coronary artery disease) Brother CAD (coronary artery disease) Brother CAD (coronary artery disease) Other Heart disease Past Cardiac Illness: Arrhythmias - CHRONIC A FIB, , Ejection Fraction - EF 20%, Coronary Artery Disease, Myocardial Infarction, Previous PCI w/Stent Laboratory Values: Cardiac Rehab Phase I Labs Triglycerides 194 mg/dL (-199) 04/01/19 03:50 Cholesterol 143 mg/dL (200) 04/01/19 03:50 LDL Cholesterol 72 mg/dL (0-130) 04/01/19 03:50 HDL Cholesterol 32 mg/dL (40-) L 04/01/19 03:50 Phase I Education Given On:: [place], Nutrition, Antiplatelet medication, CHF, Smoking cessation, Diabetes - Type I, Diabetes - Type II Issues Affecting Care:: None Knowledge of Condition:: Yes Hospital Course Pain Description: Pressure Medical/Surgical History [place]:: Yes - PT STATES HE HAD [place] IN PAST AND THIS TIME WELL CAD:: Yes Valve Disease/Replacement:: No Pulmonary:: No - PT DENIES ANY PULMONARY ISSUES COPD:: No Asthma:: No Diabetes:: No Dyslipidemia:: Yes Arrhythmias:: Yes - CHRONIC A FIB GERD:: No Cancer:: No Renal:: No Thyroid:: No Depression:: Yes Anxiety:: Yes - PT STATES HE DOES HAVE SOME ANXIETY AND DEPRESSION CABG: No PTCA:: Yes - 4 STENTS ICD:: No Pacemaker:: No Discharge/Home/Social Eval Discharge Disposition: Home Cardiac Rehabilitation Info Cardiac Rehabilitation Program Information: Cardiac Rehabilitation is important for patients like you who are recovering from a heart problem. Cardiac rehabilitation programs are recognized as integral to the continued care of the patient with coronary heart disease. The cardiac rehabilitation program is designed to optimize a patient's physical, psychological, and social functioning. Health palliative care coordinator work in cardiac rehabilitation programs and assist you with getting the treatments you need to get stronger and healthier - like exercise, healthy eating habits, and medications. Cardiac rehabilitation has been show to help people with heart problems live longer and have better life enjoyment than people who do not go to cardiac rehabilitation. Please contact the Cardiac Rehabilitation Program at [facility] at in two weeks if you have not heard from them.
--- NOTE | 2019-04-02 10:55 | CRPH1.INSTRU ---
General Education CAD and cardiac anatomy and function:: Patient communicates acknowledgment, Needs reinforcement Explanation of diagnoses and procedures:: Needs reinforcement Sign/Symptoms of [place]:: Patient communicates acknowledgment Antiplatelet therapy: Patient communicates acknowledgment Proper use of NTG-SL: Patient communicates acknowledgment Emergency procedures and activation of EMS: Patient communicates acknowledgment, Needs reinforcement Compliance of all prescribed medications: Patient communicates acknowledgment Smoking Patient Nicotine/Smoking Risk Factors Are:: Cigarettes - PT STATES HE CURRENTLY SMOKES 1.5 PPD FOR PAST 30 YEARS Recommendations Include:: Smoking cessation strategies/Smoking packet, Second-hand smoke recommendation, Participation in a smoking cessation program, Previous smoker; encourage continued cessation Nicotine/Smoking Response Code:: Not instructed Dyslipidemia Patient Dyslipidemia Risk Factors Are:: Total Cholesterol - 143, Triglycerides - 194, HDL - 32, LDL - 72 Recommendations Include:: Lipid profile provided Dyslipidemia Response Code:: Not instructed Overweight/Obesity Patient Overweight/Obesity Risk Factors Are:: Obesity - > or = 30 Recommendations Include:: Weight loss of 5-10%, Reduced calorie diet, Exercise 5-7 times/week Overweight/Obesity:: Not instructed Hypertension Recommendations Include:: Maintain BP <130/85, DASH dietary guidelines, Decrease/maintain normal body weight, Moderation of ETOH Hypertension:: Not instructed Heart Disease Patient Heart Disease Risk Factors Are:: Previous cardiac event Heart Disease Response Code:: Not instructed Diabetes Patient Diabetes Risk Factors Are:: No documented hx of diabetes Metabolic Syndrome Patient Metabolic Syndrome Risk Factors Are [3 of 5]:: Waist circumference > 35 [female] or 40 [male], High triglyceride >150, Hypertension Recommendations Include:: Reinforce compliance to risk factor modifications Metabolic Syndrome Response Code:: Not instructed Sedentary Patient Sedentary Risk Factors Are:: Lack of regular exercise Recommendations Include:: Benefits of regular exercise, Discussed home walking program Sedentary Response Code:: Patient communicates acknowledgment - WALKING AT HOME DISCUSSED WITH PT. ADMITS TO SEDENTARY LIFESTYLE, Needs reinforcement Stress Stress Response Code:: Patient communicates acknowledgment, Needs reinforcement
--- NOTE | 2019-04-02 12:48 | CHAPLAIN ---
Type of Pastoral Visit _x__ Initial Visit ___ Follow-up Visit ___ On-call Visit ___ General Patient Visit ___ Spiritual Assessment ___ Family Conference ___ Bereavement ___ Rapid Response ___ Code Blue ___ Other (describe below) Pastoral Care Referral From _x__ Patient ___ Family _x__ Nurse ___ Physician ___ Physical Therapy Director ___ Pile Header ___ Other (describe below) Sacrament/Intervention _x__ Active listening ___ Anointing ___ Gnosticist ___ Bereavement ___ Communion ___ Erna exploration ___ ___ Life review ___ Prayer ___ Reconciliation ___ Sacrament of Sick ___ Supportive presence ___ Wedding ___ Other (describe below) Pastoral Comments
--- NOTE | 2019-04-02 13:49 | CL.D_ITS ---
Patient Name: NIGEL ESPINOSA Study Date: 04/02/2019 Performing: Andrew Anaya MD Ht: 68.11 inches 173 cm : 1955 Wt: 262.35 lbs 119 kg Age: 63 Gender: male BSA: 2.3 PROCEDURE(S) PERFORMED NY00-MPA/COR/LV MS79-VNA W OR WO PTCA, SINGLE CORONARY ARTERY CLINICAL PROFILE AND INDICATIONS Indications: Worsening Angina, Cardiomyopathy, Cardiac Arrythmia, Suspected CAD Heart Failure: None Stress/Imaging Stress/Image Study Performed: No Angina Classification Anginal Classification w/in 2 Weeks: CCS III CAD Presentations: Non-STEMI. CONCLUSIONS Elevated Left Ventricular End Diastolic Pressure Segmented LV systolic dysfunction- Moderate LVEF: by LV gram 30 % [place] Multivessel CAD RECOMMENDATIONS Risk factor modification Medical therapy Referred for immediate PCI DESCRIPTION OF PROCEDURE The patient arrived to the procedure lab. The risks and benefits of the procedure as well as a full d escription of our services here and current unavailability of surgical backup were fully explained to the patient and/or their significant other prior to the catheterization. The Timeout was completed, verifying the correct patient and procedure. The patient's procedural site was prepped and draped in the usual fashion. Local anesthetic was given subcutaneously to right radial region with Lidocaine 2% . Using a modified Seldinger technique, arterial access was obtained via the right radial artery, a 6 Fr sheath was inserted. Right Coronary Artery selective angiography was then performed in multiple v iews using a 5 Fr. 4.0 [place] catheter. Left Coronary Artery selective angiography was performed in mu ltiple views using a 5 Fr. 4.0 [place]man catheter. Left Ventriculography was performed in HA projection using a 5 Fr. Pigtail catheter. LV to AO pullback pressures were then recorded.The arterial sheath was pulled and a TR Band was applied for hemostasis 11cc air inserted CORONARY ANGIOGRAPHY DOMINANCE: Right Dominant LEFT HEART ASSESSMENT Left Ventricular Ejection Fraction: by LV Gram 30 % Anterior Hypokinesis. Apical Akinesis Elevated Left Ventricular End Diastolic Pressure LVEDP: 28 mmHg LEFT MAIN: Angiographically normal LEFT ANTERIOR DESCENDING ARTERY: Mild luminal irregularities MID LAD: subtotally occluded with the mid to distal vessel filling late CIRCUMFLEX ARTERY: Mild luminal irregularities PROX CIRC: Previously placed stent is patent DISTAL CIRC: eccentric: somewhat hazy: 50 % Stenosis RIGHT CORONARY ARTERY: PROX RCA: Previously placed stent is patent MID RCA: Previously placed stent is patent VALVE FINDINGS: Normal Aortic Valve function Normal Mitral Valve function AORTIC ROOT: Angiographically normal COMPLICATIONS No Complications PROCEDURE MEDICATIONS Fentanyl 50 mcg IV Versed 1 mg IV Oxygen: 2 L/min via nasal cannula Heparin diluted in 23cc Heparinized saline. Patient given 10cc IA of this solution. 04/02/2019 08:55: 03 Heparin 8000 unit(s) IV 04/02/2019 09:21:24 Verapamil 2.5mg, Ntg 100mcgs, 2000 units of Heparin diluted in 23cc Heparinized saline. Patient give n 10cc IA of this solution. 04/02/2019 08:55:03 SUMMARY OF HEMODYNAMIC DATA Time AIR REST ECG 08:37:14 AO 90/66 (79) SA 08:56:29 LV 133/12, 25 09:03:23 LV 141/8, 28 09:03:28 LV 140/10, 35 09:04:30 LV 144/11, 30 09:04:36 LVp 144/12, 32 09:04:45 AOp 124/89 (106) 09:04:50 Signed By Andrew Anaya MD On 04/02/2019 13:49:21 Anrdew Anaya MD
[2019-04-02] MEDS: Pravastatin 80 MG Tablet PO (20:56)
[2019-04-03] VITALS (20 sets, daily range): BP systolic 96–132; BP diastolic 53–80; PULSE 79–102; RESP 12–23; TEMP 36–37.2; O2SAT 94–98
[2019-04-03 04:59] LABS: Absolute Lymphocyte Count 2.37 X10^3/uL (0.83-4.51); Absolute Neutrophil Count 5.9 X10^3/uL (2.0-7.7); Basophil# 0.04 X10^3/uL; Basophil% 0.4 % (0-1); Eosinophil# 0.12 X10^3/uL; Eosinophils% 1.3 % (0-5); Hematocrit 47.1 % (40-54); Hemoglobin 15.7 g/dL (13.0-16.5); Lymphocyte # 2.37 X10^3/ul (4.0); Lymphocyte % 25.5 % (19-41); Mean Corp Hgb Conc 33.3 g/dL (32-36); Mean Corpuscular Volume 93.1 fL (80-94); Mean Platelet Vol. 10.6 fl (6.2-12.0); Monocyte# 0.84 X10^3/uL; NRBC Flagged by Analyzer 0 % (0-5); Neutrophil # 5.85 X10^3/uL (2.7-7.7); Platelet Count 180 K/mm3 (150-450); RBC Distribution Width CV 13.1 % (11.6-14.6); Red Blood Count 5.06 M/mm3 (4.6-6.2); White Blood Count 9.3 K/mm3 (4.4-11.0)
[2019-04-03 05:16] LABS: AST(SGOT) 41 U/L (15-37); Alanine Aminotransfer ALT/SGPT 28 U/L (16-61); Albumin, Serum 3.2 g/dL (3.2-5.0); Alkaline Phosphatase 53 U/L (45-117); Anion Gap 8 (5-15); BUN 12 mg/dL (7-18); BUN/Creat Ratio 14.7 RATIO (10-20); Calcium,Total 8.2 mg/dL (8.5-10.1); Chloride 106 mmol/L (98-107); Creatinine, Serum 0.82 mg/dL (0.70-1.30); EST Glomerular Filtration Rate 102 mL/min (>60); Est Glom Filt Rate - Afr Amer 123 mL/min (>60); Estimated Creatinine Clearance 91.52 ml/min; Globulin 3.3 g/dL (2.2-4.2); Glucose 93 mg/dL (74-106); Potassium 4.1 mmol/L (3.5-5.1); Protein, Total 6.5 g/dL (6.4-8.2); Sodium Level 140 mmol/L (136-145)
--- NOTE | 2019-04-03 08:38 | PCM.PN.CARD ---
<Willy Smith - Last Filed: 04/03/19 09:52> Subjectve: Patient seen and evaluated. He denies any chest pain, shortness of breath, palpitations, lightheadedness, dizziness, orthopnea, or PND. He denies any right wrist discomfort. Objective: Vital Signs Temp Pulse Resp BP Pulse Ox 96.8 F L 83 15 106/80 96 04/03/19 08:00 04/03/19 08:00 04/03/19 08:00 04/03/19 08:00 04/03/19 08:00 Oxygen Delivery Method Room Air Weight: 258 lb 13.163 oz Body Mass Index (BMI) 39.9 Intake and Output for Last 24 Hours 04/01/19 04/02/19 04/03/19 23:59 23:59 23:59 Intake Total 2130.8 / 2130.8 1927.33 / 1927.33 480 / 480 Output Total 770 / 770 1925 / 1925 750 / 750 Balance 1360.8 / 1360.8 2.33 / 2.33 -270 / -270 General: Healthy Appearing, Awake, Alert, Oriented x 3, Cooperative HEENT: Atraumatic Oral: Dry Mucosa Neck: No JVD Lungs: Diminished Nuno Bases Cardiovascular: Irregular Rhythm, Normal S1, Normal S2, No Murmurs, No Rubs, No Gallops Vascular: No Carotid Bruits Abdomen: Bowel Sounds Present, Soft Extremities: No Cyanosis, No Clubbing, No edema, Normal Capillary Refill Skin: No Rashes Neurological: No Focal Motor or Sensory Deficit Psych/Mental Status: Appropriate 04/03/19 04:50: WBC 9.3, RBC 5.06, Hgb 15.7, Hct 47.1, MCV 93.1, MCH 31.0, MCHC 33.3, Plt Count 180, MPV 10.6, Immature Gran % (Auto) 0.800, Neut % (Auto) 63.0, Lymph % (Auto) 25.5, [place] % (Auto) 9.0, Eos % (Auto) 1.3, Baso % (Auto) 0.4, Absolute Neuts (auto) 5.9, Nucleated RBC % 0 04/03/19 04:50: Sodium 140, Potassium 4.1, Chloride 106, Carbon Dioxide 26.0, Anion Gap 8, BUN 12, Creatinine 0.82, Est GFR (MDRD) Af Amer 123, Est GFR (MDRD) Non-Af 102, BUN/Creatinine Ratio 14.7, Glucose 93, Calcium 8.2 L, Total Bilirubin 0.60 Rhythm: Atrial fibrillation EKG: ECHO: 04/01/2019 Interpretation Summary Severe segmental systolic dysfunction (see wall motion). The estimated ejection fraction is 20 %. Moderate concentric left ventricular hypertrophy. The left atrium is moderately enlarged. The right atrium is mildly enlarged. There is mild mitral annular calcification. Extension of the mitral annular calcification onto the posterior mitral valve leaflet. Trivial mitral valve insufficiency. Mild tricuspid valve insufficiency. Trivial eccentric pulmonic valve insufficiency. Right ventricular systolic pressure estimated to be 53 mmHg. Unable to assess diastolic dysfunction. Stress Test: Cardiac Cath: 04/02/2019 CONCLUSIONS Elevated Left Ventricular End Diastolic Pressure Segmented LV systolic dysfunction- Moderate LVEF: by LV gram 30 % [place] Multivessel CAD RECOMMENDATIONS Risk factor modification Medical therapy Referred for immediate PCI CORONARY ANGIOGRAPHY DOMINANCE: Right Dominant LEFT HEART ASSESSMENT Left Ventricular Ejection Fraction: by LV Gram 30 % Anterior Hypokinesis. Apical Akinesis Elevated Left Ventricular End Diastolic Pressure LVEDP: 28 mmHg LEFT MAIN: Angiographically normal LEFT ANTERIOR DESCENDING ARTERY: Mild luminal irregularities MID LAD: subtotally occluded with the mid to distal vessel filling late CIRCUMFLEX ARTERY: Mild luminal irregularities PROX CIRC: Previously placed stent is patent DISTAL CIRC: eccentric: somewhat hazy: 50 % Stenosis RIGHT CORONARY ARTERY: PROX RCA: Previously placed stent is patent MID RCA: Previously placed stent is patent VALVE FINDINGS: Normal Aortic Valve function Normal Mitral Valve function AORTIC ROOT: Angiographically normal PCI: 04/02/2019 CONCLUSIONS Successful PCI with Drug eluting stent and PTCA to the mLAD RECOMMENDATIONS Follow up with Dr. Jaclyn SIMON Indefinitlejeffrey Plavix for at least [address] Surgery: Holter monitor: EPS: PPM: CXR: Chest CT Scan: Medical Necessity - Tobacco Use Smoking Status: Current every day smoker - pt states he smoked 1.5 ppd ( past 30 yrs) Tobacco Use: Cigarettes Assessment/Plan 1. Atherosclerotic Coronary Artery Disease/non-ST elevated myocardial infarction Patient is now status post drug-eluting stent to mid LAD. His heart catheterization from 04/02/2019 revealed patent previous placed stents and LVEF of 30%. His distal circumflex showed eccentric somewhat hazy 50% stenosis. He will continue with Aspirin and Plavix therapy. He will continue with carvedilol for both rate control and cardiovascular disease. He will continue with pravastatin. Patient is not on IJEOMA inhibitor or ARB at this time due to lower blood pressure readings. Patient will be followed on outpatient basis in regards to reduced ejection fraction. He will undergo a repeat echocardiogram in approximately 6 weeks. At that time, if his ejection fraction remains 35% or below, we will consider primary prevention AICD. He will need to remain on Aspirin for life and Plavix for at least one year. He can be transferred to PCU to be monitored for at least one day given infarction to ensure no dysrhythmia or unforeseen events. 2. Atrial Fibrillation Patient's 12-lead EKG continues to show atrial fibrillation. His heart rate is well controlled. He did have higher heart rates throughout the night that were transient. At this time, he will continue with current beta-shawn and digoxin therapy. This will be followed over time. Patient does express symptoms concerning for obstructive sleep apnea as well as fluctuating oxygenation throughout the night. His echocardiogram from 04/01/2019 showed moderately enlarged left atrium, mildly enlarged right atrium, and an RVSP of 53 mmHg. This too can be assessed on an outpatient basis if desired by patient. He will resume his Xarelto on 04/04/2019. He will be monitored for bleeding prior to discharge. 3. Ischemic cardiomyopathy His echocardiogram from 04/01/2019 showed ejection fraction of 20%. His heart catheterization revealed an LV gram of 30%. Patient denies any symptoms consistent with acute congestive heart failure. He does not appear to be in a fluid volume overload state on exam. He is not on IJEOMA inhibitor or ARB due to lower blood pressure readings. He will continue with beta-shawn therapy. He is not on diuretic therapy and this will continually be reassessed on an outpatient basis. 4. Hypertension He will continue with current medical management. This will be followed over time. His medications will be adjusted accordingly and as indicated. 5. Hyperlipidemia His his lipid panel from 04/01/2019 showed cholesterol: 143, HDL: 32, LDL: 72, and triglycerides: 194. At this time, he will continue with current high-dose statin medication. 6. Tobacco Abuse He was advised to discontinue all tobacco products. He acknowledged understanding. Overall, patient's laboratory work and telemetry appears stable. He can be transferred to PCU to be monitored for at least one more with ultimate outpatient follow-up. On an outpatient basis, his atrial fibrillation and possible DCCV, need for AICD, and potential polysomnogram will be considered. Patient's case was discussed with Dr. Anaya. He will also be evaluated personally by Dr. Anaya. Thank you for allowing us to participate in the patients plan of care, if you have any questions please do not hesitate to call. This note was generated using a voice recognition system and there may be incorrect words, spelling or punctuation that were not noted when reviewing the office note prior to saving. <Andrew Anaya - Last Filed: 04/03/19 13:12> Objective: Vital Signs Temp Pulse Resp BP Pulse Ox 97.8 F 91 16 101/68 97 04/03/19 11:29 04/03/19 11:43 04/03/19 11:29 04/03/19 11:29 04/03/19 11:33 Oxygen Delivery Method Room Air Weight: 258 lb 13.163 oz Body Mass Index (BMI) 39.9 Intake and Output for Last 24 Hours 04/01/19 04/02/19 04/03/19 23:59 23:59 23:59 Intake Total 2130.8 / 2130.8 1927.33 / 1927.33 480 / 480 Output Total 770 / 770 1925 / 1925 750 / 750 Balance 1360.8 / 1360.8 2.33 / 2.33 -270 / -270 04/03/19 04:50: WBC 9.3, RBC 5.06, Hgb 15.7, Hct 47.1, MCV 93.1, MCH 31.0, MCHC 33.3, Plt Count 180, MPV 10.6, Immature Gran % (Auto) 0.800, Neut % (Auto) 63.0, Lymph % (Auto) 25.5, [place] % (Auto) 9.0, Eos % (Auto) 1.3, Baso % (Auto) 0.4, Absolute Neuts (auto) 5.9, Nucleated RBC % 0 04/03/19 04:50: Sodium 140, Potassium 4.1, Chloride 106, Carbon Dioxide 26.0, Anion Gap 8, BUN 12, Creatinine 0.82, Est GFR (MDRD) Af Amer 123, Est GFR (MDRD) Non-Af 102, BUN/Creatinine Ratio 14.7, Glucose 93, Calcium 8.2 L, Total Bilirubin 0.60 Rhythm: EKG: ECHO: Stress Test: Cardiac Cath: PCI: CT Surgery: Holter monitor: EPS: PPM: CXR: Chest CT Scan: Assessment/Plan Addendum: Date: 04-03-19 The patient was individually evaluated and examined. The patient stated he felt so much better today. He states his breathing has improved both at rest and with ambulation. He is no longer having any chest neck or upper extremity discomfort. On examination his lungs appear to be clear at this time. His cardiovascular exam demonstrates an irregular rhythm with a normal S1 and S2. His right radial artery site appears to be stable with no obvious bruit or hematoma. Overall, at the present time, he is continuing combined medical management for his complex cardiovascular condition which includes his underlying CAD, non-ST segment elevation [place], ischemic mediated cardiomyopathy, atrial fibrillation, hyperlipidemia, hypertension, superimposed upon his history of tobacco use. He will need to continue combined medical management. This will include his antiplatelet therapy. He will also need his anticoagulant therapy secondary to his atrial dysrhythmia. If his cardiac catheterization site appears to remain stable hopefully this can be resumed tomorrow. He will need continued long-term outpatient cardiovascular follow-up. He was counseled on the importance of maintaining his medications/being compliant with his medications and his outpatient follow-up to assist in his overall cardiovascular status. He will also need future outpatient echocardiograms to evaluate whether his left ventricular wall motion/systolic function improves. If it does not he may need to be considered for primary prevention ICD placement. The patient's case was discussed and reviewed with the patient as well as with Willy Smith CNP. This note was generated using a voice recognition system and there may be incorrect words, spelling or punctuation that were not noted when reviewing the office note prior to saving.
[2019-04-03] MEDS: Clopidogrel Bisulfate 75 MG Tablet PO (08:52)
[2019-04-03] MEDS: Carvedilol 12.5 MG Tablet PO ×2 (08:52→22:15)
[2019-04-03] MEDS: Digoxin 125 MCG Tablet PO (08:52)
[2019-04-03] MEDS: Aspirin E.C. 81 MG Tablet PO (08:54)
--- NOTE | 2019-04-03 09:38 | PN_ITS ---
Patient Problems: Active and Suspected Problems (Last Updated 04/02/19 @ 17:03 by Karolina Hand) NSTEMI (non-ST elevated myocardial infarction) (Acute) Subjective: Patient seen and examined. He had no complaints and felt well. Review of systems otherwise negative. Labs and vitals reviewed. Vitals/I&O's: Vital Signs Temp Pulse Resp BP Pulse Ox 96.8 F L 90 19 H 111/61 94 04/03/19 08:00 04/03/19 09:00 04/03/19 09:00 04/03/19 09:00 04/03/19 09:00 Oxygen Delivery Method Room Air Weight: 258 lb 13.163 oz Body Mass Index (BMI) 39.9 Intake and Output for Last 24 Hours 04/01/19 04/02/19 04/03/19 23:59 23:59 23:59 Intake Total 2130.8 / 2130.8 1927.33 / 1927.33 480 / 480 Output Total 770 / 770 1925 / 1925 750 / 750 Balance 1360.8 / 1360.8 2.33 / 2.33 -270 / -270 General: Alert, Oriented x3, Cooperative, No apparent distress HEENT: Atraumatic, PERRLA, EOMI, Normocephalic Oral: Moist Mucosa Neck: Supple Lungs: Clear to auscultation, Normal air movement Cardiovascular: Normal S1, No murmurs, Irregular Rate - in Afib, rate controlled Abdomen: Bowel Sounds Present, Soft, Non Tender Extremities: No clubbing, No cyanosis, No edema, Capillary Refill Less than 3 Seconds Skin: No rashes, No breakdown Musculoskeletal: No Tenderness to Palpation of Joints or Extremities Lymphatic: No Cervical, Supraclavicular, or Inguinal Adenopathy Neurological: Cranial nerves II-XII grossly intact, Neuro grossly intact, Motor Exam 5/5 strength throughout Psych/Mental Status: Normal Affect, Appropriate, Alert and oriented to time, place, person, mood and affect Laboratory Results 04/03/19 04:50: WBC 9.3, RBC 5.06, Hgb 15.7, Hct 47.1, MCV 93.1, MCH 31.0, MCHC 33.3, RDW Std Deviation 45.0 H, RDW Coeff of Tami 13.1, Plt Count 180, MPV 10.6, Immature Gran % (Auto) 0.800, Neut % (Auto) 63.0, Lymph % (Auto) 25.5, [place] % (Auto) 9.0, Eos % (Auto) 1.3, Baso % (Auto) 0.4, Absolute Neuts (auto) 5.9, Absolute Lymphs (auto) 2.37, Nucleated RBC % 0 04/03/19 04:50: Sodium 140, Potassium 4.1, Chloride 106, Carbon Dioxide 26.0, Anion Gap 8, BUN 12, Creatinine 0.82, Estim Creat Clear Calc 91.52, Est GFR (MDRD) Af Amer 123, Est GFR (MDRD) Non-Af 102, BUN/Creatinine Ratio 14.7, Glucose 93, Calcium 8.2 L, Total Bilirubin 0.60, AST 41 H, ALT 28, Alkaline Phosphatase 53, Total Protein 6.5, Albumin 3.2, Globulin 3.3, Albumin/Globulin Ratio 1.0 Current Medications Aspirin (Ecotrin) 81 mg PO DAILY@0800 [facility] Last Admin: 04/03/19 08:54 Dose: 81 mg Documented by: Atropine Sulfate () 0.5 mg IV UD PRN PRN Reason: HR <50 bpm Carvedilol (Coreg) 12.5 mg PO BID [facility] Last Admin: 04/03/19 08:52 Dose: 12.5 mg Documented by: Clopidogrel Bisulfate (Plavix) 75 mg PO DAILY [facility] Last Admin: 04/03/19 08:52 Dose: 75 mg Documented by: Dextrose (D50w Syringe) 0 gm IV X1 PRN; Protocol PRN Reason: Hypoglycemia Digoxin (Lanoxin) 125 mcg PO DAILY [facility] Last Admin: 04/03/19 08:52 Dose: 125 mcg Documented by: Glucagon () 1 mg IM .X1 PRN PRN Reason: Hypoglycemia Heparin Sodium (Porcine) (Heparin Na) 0 unit IV UD PRN; Protocol Sodium Chloride () 1,000 mls @ 15 mls/hr IV .Q48H [facility] Last Infusion: 04/02/19 12:10 Dose: Infused Documented by: Labetalol HCl (Trandate) 5 mg IV X1 PRN PRN Reason: SBP > 160 when pulling sheath Stop: 04/04/19 09:46 Morphine Sulfate () 2 mg IV Q3H PRN PRN PRN Reason: Severe Pain (-04/04) Nitroglycerin (Nitrostat) 0.4 mg SUBLINGUAL Q5M PRN PRN Reason: CARDIAC/CHEST PAIN Ondansetron HCl (Zofran) 4 mg IV Q8H PRN PRN PRN Reason: NAUSEA/VOMITING Pravastatin Sodium (Pravachol) 80 mg PO QHS [facility] Last Admin: 04/02/19 20:56 Dose: 80 mg Documented by: Sodium Chloride () 5 - 15 ml IV UD PRN PRN Reason: SALINE FLUSH Last Admin: 04/02/19 06:43 Dose: 10 ml Documented by: Sodium Chloride () 500 ml IV BOLUS PRN PRN Reason: VASO-VAGAL PROTOCOL Medical Necessity - Tobacco Use Smoking Status: Current every day smoker - pt states he smoked 1.5 ppd ( past 30 yrs) Tobacco Use: Cigarettes Assessment/Plan All Active Problems (Last Updated 04/02/19 @ 17:03 by Karolina Hand) NSTEMI (non-ST elevated myocardial infarction) (Acute) 1. NonSTEMI s/p cardiac cath * 2D echo showed moderate concentric LV hypertrophy, with EF of 20%, and hypokinesia and akinesia of the LV; RV is normal size and systolic function. Left atrium moderately enlarged. RVSP is ~ 53mmHg. Unable to assess diastolic function * he had cardiac cath (04/02/19) with successful PCI and drug eluting stent and pTCA to mid LAD * currently on aspirin nad plavix as well as high intensity statin and carvedilol. * 2.CAD s/p stents: on aspirin, plavix and statin and carvedilol. 3. Afib: * currently rate controlled * on digoxin and carvedilol. * xarelto on hold; to resume xarelto when it is ok with cardiology. Cardiology ok with dual antiplatelet therapy and xarelto. * 4. Elevated Cr: resolved 5. Nicotine dependence: smokes ~ 1.5 packs daily. Counselled to quit. DVT prophylaxis: SCDs;to resume xarelto Disposition: transfer to PCU today Code Visit Inpatient E&M: 14653 Subs Hosp L2
--- NOTE | 2019-04-03 11:54 | PCM.PN.BLA ---
Progress Note Patient is scheduled for a post hospital follow-up on 04/25/2019 with Willy Maldonado Nurse Practitioner, with the [facility] at 1 PM. He is scheduled for a limited echocardiogram to evaluate ejection fraction on 05/15/2019 at 11 AM.
[2019-04-03] MEDS: Pravastatin 80 MG Tablet PO (22:15)
[2019-04-04] VITALS (8 sets, daily range): BP systolic 90–112; BP diastolic 53–67; PULSE 73–91; RESP 16; TEMP 36–36.6; O2SAT 94–96
[2019-04-04 06:41] LABS: Absolute Lymphocyte Count 2.34 X10^3/uL (0.83-4.51); Absolute Neutrophil Count 4.8 X10^3/uL (2.0-7.7); Basophil# 0.07 X10^3/uL; Basophil% 0.9 % (0-1); Eosinophils% 1.2 % (0-5); Hematocrit 47.9 % (40-54); Hemoglobin 15.7 g/dL (13.0-16.5); Lymphocyte # 2.34 X10^3/ul (4.0); Lymphocyte % 28.8 % (19-41); Mean Corp Hgb Conc 32.8 g/dL (32-36); Mean Corpuscular Hgb 30.3 pg (27.0-32.0); Mean Corpuscular Volume 92.3 fL (80-94); Monocyte# 0.77 X10^3/uL; Monocyte% 9.5 % (0-10); NRBC Flagged by Analyzer 0 % (0-5); Neutrophil # 4.77 X10^3/uL (2.7-7.7); Neutrophil % 58.6 % (47-70); Platelet Count 171 K/mm3 (150-450); RBC Distribution Width CV 12.8 % (11.6-14.6); RBC Distribution Width SD 43.7 fl (35.1-43.9); Red Blood Count 5.19 M/mm3 (4.6-6.2); White Blood Count 8.1 K/mm3 (4.4-11.0)
[2019-04-04 06:59] LABS: Anion Gap 8 (5-15); BUN 16 mg/dL (7-18); BUN/Creat Ratio 18.8 RATIO (10-20); Calcium,Total 8.7 mg/dL (8.5-10.1); Chloride 104 mmol/L (98-107); Creatinine, Serum 0.85 mg/dL (0.70-1.30); EST Glomerular Filtration Rate 97 mL/min (>60); Est Glom Filt Rate - Afr Amer 117 mL/min (>60); Estimated Creatinine Clearance 88.29 ml/min; Glucose 101 mg/dL (74-106); Sodium Level 139 mmol/L (136-145)
[2019-04-04] MEDS: Digoxin 125 MCG Tablet PO (08:36)
[2019-04-04] MEDS: Carvedilol 12.5 MG Tablet PO (08:36)
[2019-04-04] MEDS: Clopidogrel Bisulfate 75 MG Tablet PO (08:36)
[2019-04-04] MEDS: Aspirin E.C. 81 MG Tablet PO (08:37)
--- NOTE | 2019-04-04 08:58 | PCM.PN.CARD ---
Subjectve: The patient is awake and alert. He has been up and ambulating. He states he has had no recurrent chest discomfort at rest or ambulation. He notes his breathing has improved overall and does not worsen with ambulation. He also denies a sensation of any palpitations. Objective: Vital Signs Temp Pulse Resp BP Pulse Ox 96.8 F L 75 16 112/67 96 04/04/19 08:40 04/04/19 08:40 04/04/19 08:40 04/04/19 08:40 04/04/19 08:40 Oxygen Delivery Method Room Air Weight: 258 lb 13.163 oz Body Mass Index (BMI) 39.9 Intake and Output for Last 24 Hours 04/02/19 04/03/19 04/04/19 23:59 23:59 23:59 Intake Total 1927.33 / 1927.33 960 / 960 500 / 500 Output Total 1925 / 1925 750 / 750 2 / 2 Balance 2.33 / 2.33 210 / 210 498 / 498 General: Awake, Alert, Oriented x 3, Cooperative, No Acute Distress HEENT: Atraumatic, Normocephalic, PERRL, EOMI, Sclera Non Icteric Oral: Moist Mucosa Neck: Supple, Good ROM, No JVD Lungs: Clear to auscultation Cardiovascular: Irregular Rhythm, Normal S1, Normal S2 Abdomen: Bowel Sounds Present, Soft, Non Tender Extremities: No edema Neurological: No Focal Motor or Sensory Deficit Psych/Mental Status: Appropriate 04/04/19 06:12: WBC 8.1, RBC 5.19, Hgb 15.7, Hct 47.9, MCV 92.3, MCH 30.3, MCHC 32.8, Plt Count 171, MPV 11.0, Immature Gran % (Auto) 1.000 H, Neut % (Auto) 58.6, Lymph % (Auto) 28.8, [place] % (Auto) 9.5, Eos % (Auto) 1.2, Baso % (Auto) 0.9, Absolute Neuts (auto) 4.8, Nucleated RBC % 0 04/04/19 06:12: Sodium 139, Potassium 4.0, Chloride 104, Carbon Dioxide 27.0, Anion Gap 8, BUN 16, Creatinine 0.85, Est GFR (MDRD) Af Amer 117, Est GFR (MDRD) Non-Af 97, BUN/Creatinine Ratio 18.8, Glucose 101, Calcium 8.7 Rhythm: Atrial fibrillation EKG: Atrial fibrillation; T wave abnormality-consider myocardial ischemia-anterior lateral Medical Necessity - Tobacco Use Smoking Status: Heavy Smoker (>10/day) Tobacco Use: Cigarettes Assessment/Plan 1. Atrial fibrillation The patient has ongoing atrial fibrillation. He will need continued combination therapy. This will include rate control therapy and anticoagulant therapy. Over time depending upon his clinical course he may need additional antiarrhythmic therapy. He has had in the past DC cardioversion to regain sinus rhythm. According to the past medical record this was last performed on 03-26-13. In conjunction with proceeding with his atrial fibrillation evaluation care he will also need evaluation care of his underlying CAD and non-ST segment elevation SD. 2. Non-ST segment elevation SD The patient has findings compatible with a non-ST segment elevation SD. He has undergone additional evaluation including diagnostic cardiac catheterization. He subsequently received LAD PCI. At the present time he will continue medical management, outpatient cardiac rehabilitation has been recommended, and outpatient cardiovascular follow-up has been recommended. 3. CAD status post PCI The patient will need to be monitored as noted above. He will continue medical therapy as deemed appropriate. Again he is undergone further evaluation with cardiac catheterization. He underwent LAD PCI. Para graph he will need continued medical therapy. He has been recommended for outpatient cardiac rehabilitation. He has been encouraged to continue with outpatient cardiovascular follow-up. He has been encouraged to remain compliant with his medications. 4. Cardiomyopathy His overall LV systolic function is decreased. He is encouraged to continue his medications and continue with outpatient follow-up. This will include echocardiographic studies to monitor his left ventricular wall motion and systolic function. If he does not straight improvement then he will need to be considered for primary prevention ICD therapy. 5. Hyperlipidemia He will continue risk factor evaluation and care. 6. Hypertension The patient's blood pressure will be followed. He will continue medical management. Comment: The above was discussed and reviewed with the patient. He was agreeable to this approach. This note was generated using a voice recognition system and there may be incorrect words, spelling or punctuation that were not noted when reviewing the office note prior to saving.
--- NOTE | 2019-04-04 09:48 | CASEMGMT ---
SW spoke with patient per nursing request. Patient said he has new insurance, but does not have his new card as he moved before it came in the mail. He doesn't know how he will get his prescriptions without the card. He also said he owes [facility], his regular pharmacy, a co-pay. He also wasn't sure if [facility] delivered to [place]. SW told him SW can find out. MONIKA spoke with [facility] pharmacy and they were able to verify in their system patient has [facility] for prescription coverage. SW wrote down his insurance ID and the phone number for [facility] so he can call and request information be re-sent to his new address. SW called [facility] and they do not deliver to [place], but they can mail scripts. SW gave all this information to patient. Bonny LEE MSW
--- NOTE | 2019-04-04 10:00 | EKG12_ITS ---
Test Reason : AM EKG Blood Pressure : / mmHG Vent. Rate : 082 BPM Atrial Rate : 129 BPM P-R Int : 000 ms QRS Dur : 082 ms QT Int : 414 ms P-R-T Axes : 000 041 168 degrees QTc Int : [address] & Marked T wave abnormality, consider anterolateral ischemia Prolonged QT Abnormal ECG When compared with ECG of 03-APR-2019 05:28, MANUAL COMPARISON REQUIRED, DATA IS UNCONFIRMED Confirmed by BERRY JONES, FRANCK ([id number]), editor farm journal MATTHIAS PINEDA ([id number]) on 04/10/2019 10:13:04 AM Referred By: DEB Confirmed By:NENA SMART MD
[2019-04-04 10:41] LABS: Digoxin Level 0.39 ng/mL (0.80-2.00)
--- NOTE | 2019-04-04 10:53 | DCINST_ITS ---
- Discharge Diagnoses Current Active Problems: Current Active and Chronic Problems (Last Updated 04/02/19 @ 17:03 by Karolina Hand) S/P coronary artery stent placement (Chronic ~04/02/19) PTCA?YAQUELIN to LAD 04/02/19 NSTEMI (non-ST elevated myocardial infarction) (Acute) A-fib (Chronic) CAD in [place] artery (Chronic) You will use the following diet at home:: Cardiac Your food should be the consistency of: Regular Your liquids should be the consistency of: Regular/Thin Discharge Activity: Return to Normal Activity Weight Bearing Status: Weight bearing as tolerated Call your doctor if you observe: Shortness of breath, Dizziness, Chest pain Instructions: Heart Attack Additional Instructions: patient counseled about risk of bleeding due to him being on xarelto, aspirin and plavix. counseled strongly about need for compliance. Allergies/Adverse Reactions: Allergies No Known Allergies Allergy (Verified 07/10/17 14:25) Medications to take at Discharge Nitroglycerin (INPATIENT USE) [Nitrostat] 0.4 mg SL PRN 03/26/13 Aspirin E.C. [Ecotrin] 81 mg PO DAILY@0800 #30 tab 04/04/19 Carvedilol [Coreg (Beta Unruly)] 12.5 mg PO BID #60 tab 04/04/19 Clopidogrel Bisulfate [Plavix] 75 mg PO DAILY #30 tab 04/04/19 Digoxin [Lanoxin] 125 mcg PO DAILY #30 tab 04/04/19 Pravastatin [Pravachol] 80 mg PO QHS #30 tab 04/04/19 Rivaroxaban [Xarelto] 20 mg PO DAILY #30 tab 04/04/19 The following prescriptions were given: Carvedilol [Coreg (Beta Unruly)] 12.5 mg PO BID #60 tab Transmission Status: Pending to [facility] Aspirin E.C. [Ecotrin] 81 mg PO DAILY@0800 #30 tab Transmission Status: Pending to [facility] Digoxin [Lanoxin] 125 mcg PO DAILY #30 tab Transmission Status: Pending to [facility] Clopidogrel Bisulfate [Plavix] 75 mg PO DAILY #30 tab Transmission Status: Pending to [facility] Pravastatin [Pravachol] 80 mg PO QHS #30 tab Transmission Status: Pending to [facility] Rivaroxaban [Xarelto] 20 mg PO DAILY #30 tab Transmission Status: Pending to [facility] Primary Care Physician: Brock Connor DO [Primary Care Provider] - Please follow up with your Primary Care Physician in: one week Test Results: Test results from this visit will be discussed in further detail at your follow- up appointment, if applicable. Please Follow Up With: Andrew Anaya MD When: 1-2 weeks; call office for appointment Proposed Discharge Date: 04/04/19 Cardiac Rehab Referral Time of your Cardiac Rehabilitation appointment:: 10:55 Cardiac Rehabilitation was informed of this Referral:: Yes - Notifies Card Rehab
--- NOTE | 2019-04-04 10:55 | DS.PCM_ITS ---
Discharge Date and Diagnosis Date of Admission: 04/01/19 Date of Discharge: 04/04/19 - Primary Discharge Diagnosis Active and Suspected Problems (Last Updated 04/02/19 @ 17:03 by Karolina Hand) NSTEMI (non-ST elevated myocardial infarction) (Acute) - Secondary Discharge Diagnosis Chronic Problems (Last Updated 04/02/19 @ 17:03 by Karolina Hand) S/P coronary artery stent placement (Chronic ~04/02/19) PTCA?YAQUELIN to LAD 04/02/19 A-fib (Chronic) CAD in [place] artery (Chronic) Presence of stent in coronary artery (Chronic) PTCA/BMS to prox/mid RCA with thrombectomy in the mid RCA09/05; PTCA/YAQUELIN of the in stent restenosis in the prox to mid RCA and mid to distal RCA 02/12/13; PTCA/YAQUELIN to the mid CX @ [facility] 08/29/14 Cardiomyopathy (Chronic) Persistent atrial fibrillation (Chronic) Hypertension (Chronic) Atherosclerotic heart disease of [place] coronary artery without angina pectoris (Chronic) Tobacco abuse (Chronic) Overweight (Chronic) Hyperlipidemia (Chronic) Hospital Course and Treatment cardiology- Dr Anaya Operations: - - Incision and drainage of left jamey-rectal abscess Procedures: Cardiac catheterization Summary of Care Provided: The patient is a 63 year old M with an extensive past medical history as listed who was admitted through the ED on 04/01/2019 with a complaint of chest pain which started about 45 minutes prior to presentation. It was pressure-like and radiated up the neck and had associated diaphoresis and shortness of breath. He was also found to be in A. fib with RVR in the emergency room at [place] where he initially presented. Heart rate was stabilized with Cardizem bolus. Initial troponin done at [place] ED was 0.015 and trended up to 0.89. He was given aspirin and a dose of therapeutic Lovenox and transferred to [facility]. On arrival, repeat troponin was 12 so he was admitted and managed for non-STEMI and A. fib with RVR. Patient admitted to not being compliant with his Xarelto due to financial issues but said on the day of admission he had taken his Xarelto. Cardiology was consulted and patient had cardiac cath on 04/02/2019 with successful PCI and drug-eluting stent placement to the mid LAD. He also had a 2D echocardiogram which showed moderate concentric left ventricular hypertrophy with EF of 20% and hypokinesia and akinesia of the left ventricle. RVSP was 53 mmHg and right ventricular size was normal as well as its function. Left atrium was moderately enlarged. Patient remained stable and Xarelto was resumed. He was placed on his digoxin and carvedilol. Was also placed on aspirin and Plavix for dual antiplatelet therapy. Patient remained stable and was discharged 110 1019. He was counseled extensively about risk of bleeding on account of him being on aspirin and Plavix as well as Xarelto. He was counseled about the importance of compliant with his medication. He was given prescription for Xarelto, carvedilol, statin, aspirin and Plavix. He is follow- up with his primary care doctor and also to follow-up with cardiology and was referred to cardiac rehab. Patient was also counseled strongly to quit smoking as he was still smoking 1.5 pack/day. Patient seen and examined prior to discharge. He had no complaints and felt well. Review of systems otherwise negative. Labs and vitals reviewed. Home me dication reviewed and reconciled. o/e: Vital Signs Height 5 ft 8 in Weight: 258 lb 13.163 oz Weight in Pounds 258.8 lbs BMI 39.8 Pulse Ox 96 Temperature 96.9 F Pulse Rate 73 Respiratory Rate 16 Blood Pressure [BP] 111/61 Blood Pressure 90/53 Blood Pressure Position [BP] Semi-Fowlers Blood Pressure Position Sitting [] General: Alert, Oriented x3, Cooperative, No apparent distress HEENT: Atraumatic, PERRLA, EOMI, Normocephalic Oral: Moist Mucosa Neck: Supple Lungs: Clear to auscultation, Normal air movement Cardiovascular: Normal S1, No murmurs, Irregular Rate - in Afib, rate controlled Abdomen: Bowel Sounds Present, Soft, Non Tender Extremities: No clubbing, No cyanosis, No edema, Capillary Refill Less than 3 Seconds Skin: No rashes, No breakdown Musculoskeletal: No Tenderness to Palpation of Joints or Extremities Lymphatic: No Cervical, Supraclavicular, or Inguinal Adenopathy Neurological: Cranial nerves II-XII grossly intact, Neuro grossly intact, Motor Exam 5/5 strength throughout Psych/Mental Status: Normal Affect, Appropriate, Alert and oriented to time, place, person, mood and affect Plan as above. Patient follow-up with engineering illustrator on outpatient basis for decision to be made about starting SABAS inhibitor or ARB as he was mildly hypotensive during hospitalization. - Physical Exam Vital Signs Temp Pulse Resp BP Pulse Ox 96.8 F L 75 16 112/67 96 04/04/19 08:40 04/04/19 08:40 04/04/19 08:40 04/04/19 08:40 04/04/19 08:40 Oxygen Delivery Method Room Air Weight: 258 lb 13.163 oz Body Mass Index (BMI) 39.9 Intake and Output for Last 24 Hours 04/02/19 04/03/19 04/04/19 23:59 23:59 23:59 Intake Total 1927.33 / 1927.33 960 / 960 500 / 500 Output Total 1925 / 1925 750 / 750 2 / 2 Balance 2.33 / 2.33 210 / 210 498 / 498 Laboratory Tests Past 24 Hrs 04/04/19 04/04/19 04/04/19 06:12 06:12 08:50 WBC 8.1 RBC 5.19 Hgb 15.7 Hct 47.9 MCV 92.3 MCH 30.3 MCHC 32.8 RDW Std Deviation 43.7 RDW Coeff of Tami 12.8 Plt Count 171 MPV 11.0 Immature Gran % (Auto) 1.000 H Neut % (Auto) 58.6 Lymph % (Auto) 28.8 [place] % (Auto) 9.5 Eos % (Auto) 1.2 Baso % (Auto) 0.9 Absolute Neuts (auto) 4.8 Absolute Lymphs (auto) 2.34 Nucleated RBC % 0 Sodium 139 Potassium 4.0 Chloride 104 Carbon Dioxide 27.0 Anion Gap 8 BUN 16 Creatinine 0.85 Estim Creat Clear Calc 88.29 Est GFR (MDRD) Af Amer 117 Est GFR (MDRD) Non-Af 97 BUN/Creatinine Ratio 18.8 Glucose 101 Calcium 8.7 Digoxin 0.39 L Discharge Diet: Low fat/ Low Cholesterol Discharge Activity: Return to Normal Activity Weight Bearing Status: Weight bearing as tolerated Call your doctor if you observe: Shortness of breath, Dizziness, Chest pain Home Medications: Medications to take at Discharge Nitroglycerin (INPATIENT USE) [Nitrostat] 0.4 mg SL PRN 03/26/13 Aspirin E.C. [Ecotrin] 81 mg PO DAILY@0800 #30 tab 04/04/19 Carvedilol [Coreg (Beta Unruly)] 12.5 mg PO BID #60 tab 04/04/19 Clopidogrel Bisulfate [Plavix] 75 mg PO DAILY #30 tab 04/04/19 Digoxin [Lanoxin] 125 mcg PO DAILY #30 tab 04/04/19 Pravastatin [Pravachol] 80 mg PO QHS #30 tab 04/04/19 Rivaroxaban [Xarelto] 20 mg PO DAILY #30 tab 04/04/19 Following Prescrptions Were Given to Patient: Carvedilol [Coreg (Beta Unruly)] 12.5 mg PO BID #60 tab Transmission Status: Received by [facility] Aspirin E.C. [Ecotrin] 81 mg PO DAILY@0800 #30 tab Transmission Status: Received by [facility] Digoxin [Lanoxin] 125 mcg PO DAILY #30 tab Transmission Status: Received by [facility] Clopidogrel Bisulfate [Plavix] 75 mg PO DAILY #30 tab Transmission Status: Received by [facility] Pravastatin [Pravachol] 80 mg PO QHS #30 tab Transmission Status: Received by [facility] Rivaroxaban [Xarelto] 20 mg PO DAILY #30 tab Transmission Status: Received by [facility] Primary Care Physician: Brock Connor DO [Primary Care Provider] - Please follow up with your Primary Care Physician in: one week Please Follow Up With: Andrew Anaya MD When: 1-2 weeks; call office for appointment Patient Instructions: Heart Attack Disposition: Home Minutes spent on discharge:: 50 Patient Condition:: Stable Medical Necessity - Tobacco Use Smoking Status: Heavy Smoker (>10/day) Tobacco Use: Cigarettes Meaningful Use Info Meaningful Use Diagnoses (Choose all that apply): AMI - AMI Aspirin given w/in 24hrs of arrival?: Yes ASA at discharge?: Yes Statins at discharge?: Yes Sabas/ARB at discharge?: No Reason Sabas/ARB not ordered:: Hypotension Beta Unruly at discharge?: Yes Done w/ Acute CA measure.: Yes Documented LVEF (%): 20 Code Visit Inpatient E&M: 57862 Disch Hosp
--- NOTE | 2019-04-04 11:10 | PHA.DC.MC ---
Pharmacy Service has performed discharge medication reconciliation and counseling for this patient. The patient's discharge medication list was reviewed for discrepancies and discrepancies were resolved. The patient was counseled on the following discharge medications and changes in medications for homegoing were reviewed. 1. COREG: DOSE INCREASED TO 12.5MG BID 2. XARELTO: 20MG DAILY - TO RESUME. Counselled on compliance of taking medication, S/S bleeding and clotting. The Reason for Use, instructions for use, and potential side effects were reviewed for all new medications. The patient's questions regarding all of their medications were answered. The patient demonstrated some understanding but would benefit from further education and reinforcement. Home Medications Nitroglycerin (INPATIENT USE) [Nitrostat] 0.4 mg SL PRN 03/26/13 Aspirin E.C. [Ecotrin] 81 mg PO DAILY@0800 #30 tab 04/04/19 Carvedilol [Coreg (Beta Unruly)] 12.5 mg PO BID #60 tab 04/04/19 Clopidogrel Bisulfate [Plavix] 75 mg PO DAILY #30 tab 04/04/19 Digoxin [Lanoxin] 125 mcg PO DAILY #30 tab 04/04/19 Pravastatin [Pravachol] 80 mg PO QHS #30 tab 04/04/19 Rivaroxaban [Xarelto] 20 mg PO DAILY #30 tab 04/04/19
== END 2019-04-04 12:32 | disposition home or self-care (01) | DRG 247 ==
LOC: ICU 04-03 10:03 → PCU 04-03 10:03 → ICU 04-03 11:02 → PCU 04-03 11:17
PROVIDERS: Internal Medicine Cardiovascular Disease; Admitting Provider Hospitalist; Family Provider Preventive Medicine Occupational Medicine; PCP Preventive Medicine Occupational Medicine; Visit Provider Student in an Organized Health Care Education/Training Program
DX: I21.4 Non-ST elevation (NSTEMI) myocardial infarction (principal); I48.19 Other persistent atrial fibrillation; E66.3 Overweight; E78.5 Hyperlipidemia, unspecified; I25.5 Ischemic cardiomyopathy; Z95.5 Presence of coronary angioplasty implant and graft; I25.2 Old myocardial infarction; I10 Essential (primary) hypertension; Z79.02 Long term (current) use of antithrombotics/antiplatelets; Z79.899 Other long term (current) drug therapy; F17.210 Nicotine dependence, cigarettes, uncomplicated; Z68.39 Body mass index [BMI] 39.0-39.9, adult; J84.10 Pulmonary fibrosis, unspecified; R79.89 Other specified abnormal findings of blood chemistry; Z91.14 Patient's other noncompliance with medication regimen; I25.110 Atherosclerotic heart disease of native coronary artery with unstable angina pectoris
CPT/HCPCS: 36415; 80048; 80053; 80061; 80162; 84484; 85025; 85610; 85730; 92928; 93005; 93306; 93458; 97802; 99152; 99153; 99406; C1874; J7030; Q9967; A4216; C1725; C1769; C1887; C1894; C9600; J1327

== ENCOUNTER 2019-06-01 09:44 | Emergency (ER) | payer MEDICARE, SELFPAY ==
[2019-04-01 01:52] VITALS: BMI 39.9
[2019-06-01] VITALS (7 sets, daily range): BP systolic 95–119; BP diastolic 45–77; PULSE 80–126; RESP 13–19; TEMP 36.7; O2SAT 94–100; BMI 40.8
--- NOTE | 2019-06-01 09:58 | EKG12_ITS ---
Test Reason : CP Blood Pressure : / mmHG Vent. Rate : 126 BPM Atrial Rate : 129 BPM P-R Int : 000 ms QRS Dur : 076 ms QT Int : 336 ms P-R-T Axes : 000 032 166 degrees QTc Int : 486 ms Atrial fibrillation with rapid ventricular response Possible Inferior infarct , age undetermined Abnormal ECG Confirmed by BERRY JONES, FRANCK ([id number]), web editor MATTHIAS PINEDA ([id number]) on 06/02/2019 12:02:24 PM Referred By: NEREYDA Confirmed By:NENA SMART MD
--- NOTE | 2019-06-01 10:00 | RAD_ITS ---
STUDY: X-RAY CHEST REASON FOR EXAM: Male, 63 years old. Chest pain. TECHNIQUE: Single AP portable view of the chest. COMPARISON: [facility] 2014. FINDINGS: Cardiac silhouette unremarkable. Pulmonary vascularity unremarkable. Aorta unremarkable. No focal patchy airspace opacities. No pleural effusions. Upper abdomen unremarkable. Osseous structures intact. No pneumothorax. RAD/Chest 1 View (Portable) IMPRESSION: No acute cardiopulmonary findings Electronically Signed: Syed Casillas DO at 10:27 EST Tel , Service support ,
--- NOTE | 2019-06-01 10:05 | ED.VISSUMM ---
- ER Visit Summary Date of Service: 06/01/19 Chief Complaint: Chest pain History of Present Illness: The patient is a [address] Strong and Dr. Anaya. Patient has a history of coronary artery disease. He reports that 10 days ago he had blood in his stool and that list lasted for 3 days. Because of that he stopped taking his aspirin, Xarelto, and Plavix and has not taken it since that. He reports that he has had intermittent chest pain for the past 2 weeks. It lasts seconds to minutes at a time. He describes it as a substernal pressure. 8 out of 10 at worst and 4 out of 10 currently. It is brought on by exertion. It is relieved by rest. States these most recent episode began approximate 45 minutes ago. He gets short of breath and diaphoretic as well as lightheaded with these episodes. Physical Examination: Vitals: Stable. Afebrile. General: Well-nourished and well-developed. Head: Normocephalic atraumatic. Neck: Supple, no lymphadenopathy. No JVD. Nontender. Cardiovascular: Tachycardic irregular rhythm. No murmurs. Respiratory: No respiratory distress. Clear to auscultation bilaterally. Abdominal: Soft, nontender, nondistended, normal bowel sounds. No guarding, rebound, or peritoneal signs. Back: Nontender. Extremities: Nontender, no edema. Skin: Normal color, no rash. Neurologic: Alert and oriented ?3. Cranial nerves II through XII are intact. Normal strength and sensation. Psych: Normal affect. Test Results: EKG is A. fib at [address] changes. Is actually improved from the EKGs that he had in March. The anterolateral T wave inversions have resolved. Repeat EKG is unchanged. CBC shows an H&H of 12.1 and 37.7, segmented neutrophils of 72. Chem-7 shows a glucose of 109. Initial troponin 0.021. Repeat troponin is 0.028. Digoxin level is 0.15. Emergency Department Course and Treatment: Patient had an IV placed. Is given 500 cc bolus of normal saline. He was given aspirin p.o. Is given a dose of Lopressor IV and then his home dose of carvedilol 12.5 mg and his home dose of digoxin p.o. He was also given Plavix p.o. his heart rate has decreased into the 80s. He does remain in atrial fibrillation. His blood pressure is stable in the 120 systolic. Treatment Plan: The patient was discussed with Dr. Saxena. With no changes in his EKG or his enzymes it is felt the patient is a suitable candidate for further outpatient evaluation. He is instructed to stop his Xarelto. However, he is instructed to resume his Plavix and aspirin. Follow-up Dr. Anaya within 1 week for another exam. I also had a prolonged discussion with the patient about his medication noncompliance and that it is just a matter of time until he has a very poor outcome because of this. He was seen by case management and they had a discussion with him about this as well. It appears the patient does have some depression. However, he denies any suicidal ideation. He was given resources in the community to help with medication compliance as well as the information for the counseling center. Return to the emergency department for any worsening symptoms. Disposition: To home in improved and stable condition. Impression: 1. Atrial fibrillation with RVR. 2. Medication noncompliance. This note was generated with [employer] dictation software. It may contain incorrect words, spelling, and punctuation that were not noted in review of the chart prior to signing ED Disposition - Plan for ED Patient: Instructions: Atrial Fibrillation Prescriptions: Carvedilol [Coreg] 12.5 mg PO BID #60 tab Digoxin 125 mcg PO DAILY #30 tab Aspirin E.C. [Ecotrin] 81 mg PO DAILY@0800 #30 tab Clopidogrel Bisulfate [Plavix] 75 mg PO DAILY #30 tab Pravastatin [Pravachol] 80 mg PO QHS #30 tab Referrals: Andrew Anaya MD [STAFF PHYSICIAN] - 1 Week Brock Connor DO [Primary Care Provider] - 1-2 Weeks
[2019-06-01 10:13] LABS: Absolute Lymphocyte Count 2.15 X10^3/uL (0.83-4.51); Absolute Neutrophil Count 7.7 X10^3/uL (2.0-7.7); Basophil# 0.05 X10^3/uL; Basophil% 0.5 % (0-1); Eosinophil# 0.01 X10^3/uL; Eosinophils% 0.1 % (0-5); Hematocrit 37.7 % (40-54); Hemoglobin 12.1 g/dL (13.0-16.5); Lymphocyte # 2.15 X10^3/ul (4.0); Lymphocyte % 19.9 % (19-41); Mean Corp Hgb Conc 32.1 g/dL (32-36); Mean Corpuscular Hgb 28.7 pg (27.0-32.0); Mean Corpuscular Volume 89.3 fL (80-94); Mean Platelet Vol. 10.3 fl (6.2-12.0); Monocyte# 0.81 X10^3/uL; Monocyte% 7.5 % (0-10); NRBC Flagged by Analyzer 0 % (0-5); Neutrophil # 7.73 X10^3/uL (2.7-7.7); Neutrophil % 71.5 % (47-70); Platelet Count 327 K/mm3 (150-450); RBC Distribution Width CV 13.8 % (11.6-14.6); RBC Distribution Width SD 45.3 fl (35.1-43.9); Red Blood Count 4.22 M/mm3 (4.6-6.2); White Blood Count 10.8 K/mm3 (4.4-11.0)
[2019-06-01] MEDS: Metoprolol Tartrate 5 MG/5 ML Vial IV (10:19)
[2019-06-01] MEDS: Clopidogrel Bisulfate 300 MG Tablet 75 MG PO (10:21)
[2019-06-01] MEDS: Digoxin 125 MCG Tablet PO (10:22)
[2019-06-01] MEDS: Carvedilol 12.5 MG Tablet PO (10:22)
[2019-06-01] MEDS: 0.9% Normal Saline 1,000 ML 150 ML IV (10:22)
[2019-06-01 10:31] LABS: Anion Gap 6 (5-15); BUN 11 mg/dL (7-18); BUN/Creat Ratio 9.5 RATIO (10-20); Calcium,Total 8.7 mg/dL (8.5-10.1); Chloride 106 mmol/L (98-107); Creatinine, Serum 1.16 mg/dL (0.70-1.30); EST Glomerular Filtration Rate 68 mL/min (>60); Est Glom Filt Rate - Afr Amer 82 mL/min (>60); Glucose 109 mg/dL (74-106); Potassium 4.2 mmol/L (3.5-5.1); Sodium Level 139 mmol/L (136-145)
[2019-06-01 11:04] LABS: Digoxin Level 0.15 ng/mL (0.80-2.00)
--- NOTE | 2019-06-01 11:36 | EKG12_ITS ---
Test Reason : REPEAT EKG Blood Pressure : / mmHG Vent. Rate : 084 BPM Atrial Rate : 394 BPM P-R Int : 000 ms QRS Dur : 076 ms QT Int : 380 ms P-R-T Axes : 000 026 122 degrees QTc Int : 449 ms Atrial fibrillation Possible Inferior infarct , age undetermined Abnormal ECG Confirmed by BERRY JONES, FRANCK ([id number]), story editor MATTHIAS PINEDA ([id number]) on 06/02/2019 12:02:59 PM Referred By: NEREYDA Confirmed By:NENA SMART MD
--- NOTE | 2019-06-01 11:43 | CM.ED ---
Social Work Consult: Resources Informant: Dr. Villar Chief Complaint: Chest Pain Marital/Social History: . Spouse, Ada 4 years ago at home with patient. Ada was not on hospice and patient was not anticipating Ada's . Patient stating she just stopped breathing. Patient had a son with Ada that completed suicide some time ago. Patient also has another son, Inocente that is Ada's son. But patient identified Inocente as my son. Living Situation: Lives with sister, Kate and Kate's boyfriend. The home is Kate's boyfriends. 1-story home with a couple steps to enter. Patient stating to be independent with mobility and care. Resources/Supports: Limited. Patient stating that Inocente lives in [place] and does check in some. Education/Employment: High school diploma. Disability due to medical issues. 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 Mental Health treatment/history: Denies. History of going through the Behavioral Health Program at [facility] after patient spouse passed. Patient stating It didn't really change anything, I didn't really try. Substance Abuse: Smoked 1 1/2 packs of tobacco daily. Denies any other substance abuse. Assessment: Met with patient in room. Introduced self as well as psychosocial rehabilitation counselor role. Patient agreeable to meet with this psychosocial rehabilitation counselor. Per Dr. Villar patient has been noncompliant with medications and managing medical health. This psychosocial rehabilitation counselor broached topic of patient's medical health and Dr. Villar's concerns of patient managing own health care. Patient stating I just don't care anymore. This psychosocial rehabilitation counselor inquiring if patient spouse cared for patient medical needs when patient spouse was living. Patient stating no, I cared for her and me. Patient stating that after patient spouse to have started to not care and to have a hard time focusing. This psychosocial rehabilitation counselor inquiring if patient is having or has had any suicidal thoughts. Patient denies any suicidal thoughts or plans. Patient stating to be feeling down and to now enjoy life. This psychosocial rehabilitation counselor encouraging patient to consider counseling of see if the Behavioral Health Program would be an option again for patient if patient is open to trying. Patient stating understanding and open to this psychosocial rehabilitation counselor providing patient with list of community resources, transportation resources, 211 guide, mental health/counseling resources, and information on the [facility]. Patient is agreeable to this psychosocial rehabilitation counselor making a referral to the [facility], unsure if patient will qualify but believe that patient would benefit from support and socialization as patient is stating to have issues with remembering to take medication and staying focused. Patient stating to have issues with transportation but that patient sister does not work on Fridays and that patient sister might be able to assist with transportation. Patient is familiar with [facility] transportation services as patient has used them in the past. Patient presenting with a good understanding of community resources/options but limited motivation to care for self. This psychosocial rehabilitation counselor able to have a discussion with patient about the grief process and how this might be affecting patient. Patient stating to agree with this psychosocial rehabilitation counselor that patient spouse passing has affect patient in a negative way. Patient stating to have lost own apartment 2 months ago due to not paying rent and that is when patient moved in with patient sister. Patient tearful when discussing patient spouse. Patient thanking this psychosocial rehabilitation counselor. Due to weekend shift unable to set up PCP appointment or follow up counseling appointment but encouraging patient to follow up with these recommendations as patient is stating to have a desire to get back into life. Active listening and support provided. Patient encouraged to call to into the hospital to speak with a psychosocial rehabilitation counselor if patient has any questions about recommendations or resources. Noting that patient does not have any contacts listed on chart. Patient is requesting for Inocente Geiger [phone] to be added to patient chart. Patient also requesting for this psychosocial rehabilitation counselor to contact Inocente to see if Inocente could provide a ride home for patient if needed. Unsure if patient will be admitted at this time per Dr. Villar. Telephone call to Inocente Brower stating to be able to provide a ride home for patient if needed. Nursing staff to call Inocente if plan is for patient to discharge back to home. Referral to the [facility] made. Updated Dr. Villar and medical team on social work assessment. Interventions: Social Work assessment PHQ-9 assessment: 05/22 - Moderate Depression. Carlos GUERRERO, JESUS
--- NOTE | 2019-06-01 13:48 | ED.RN ---
son was called to peanut picker pt. pt transported home and instructed on medications to take tonight once filled. pt verbalizes discharge teaching.
--- NOTE | 2019-07-01 10:09 | CCN.REFER ---
Patient/Family will not return CCN calls.
== END 2019-06-01 13:52 | disposition home or self-care (01) ==
PROVIDERS: Emergency Provider Emergency Medicine; Family Provider Preventive Medicine Occupational Medicine; PCP Preventive Medicine Occupational Medicine
DX: I48.91 Unspecified atrial fibrillation (principal); Z91.14 Patient's other noncompliance with medication regimen; I25.10 Atherosclerotic heart disease of native coronary artery without angina pectoris; I10 Essential (primary) hypertension; E78.00 Pure hypercholesterolemia, unspecified; Z95.5 Presence of coronary angioplasty implant and graft; F17.210 Nicotine dependence, cigarettes, uncomplicated
CPT/HCPCS: 71045; 80048; 80162; 83735; 84484; 85025; 93005; 96361; 96374; 96375; 99285; J7030

== ENCOUNTER → 2020-04-22 10:26 | Outpatient (CLI) | payer MEDICARE, SELFPAY ==
[2020-04-22 09:35] VITALS: BMI 42.9
--- NOTE | 2020-04-22 10:38 | RAD_ITS ---
STUDY: X-RAY CHEST REASON FOR EXAM: Male, 64 years old. SOB/DYSPNEA TECHNIQUE: PA and lateral views of the chest. COMPARISON: Comparison is made with prior examination dated 03/02/2019. FINDINGS: There now is evidence of a infiltration in the lateral segment of the left lower lobe as well as in the left upper lobe. Mild increased markings at the right lung base. Radiographic follow-up is recommended. There is no demonstrated pleural abnormality. Normal size heart. Normal mediastinum and ed. Normal visualized pulmonary arteries. Normal visualized aortic arch and descending thoracic aorta. There are diffuse degenerative changes of the visualized thoracic spine. Normal visualized ribs, clavicles, and shoulders. There is no demonstrated abnormality of the visualized soft tissue structures of the upper abdomen. RAD/Chest PA and Lateral IMPRESSION: New infiltrate in the left upper lobe as well as in the lateral aspect of the left lower lobe as described. Radiographic follow-up is recommended. Electronically Signed: Cesar Renee, at 11:29 EDT , Service support ,
== END ==
PROVIDERS: Referring Provider Internal Medicine Cardiovascular Disease; Visit Provider Internal Medicine Cardiovascular Disease
DX: I25.10 Atherosclerotic heart disease of native coronary artery without angina pectoris (principal); Z95.5 Presence of coronary angioplasty implant and graft; I42.9 Cardiomyopathy, unspecified; I48.19 Other persistent atrial fibrillation; E78.5 Hyperlipidemia, unspecified; I10 Essential (primary) hypertension; R06.00 Dyspnea, unspecified; R60.0 Localized edema
CPT/HCPCS: 71046

== ENCOUNTER → 2020-04-22 17:38 | Outpatient (CLI) | payer MEDICARE, SELFPAY ==
[2020-04-22 09:35] VITALS: BMI 42.9
== END ==
PROVIDERS: PCP Preventive Medicine Occupational Medicine; Referring Provider Internal Medicine Cardiovascular Disease; Visit Provider Internal Medicine Cardiovascular Disease
DX: R93.89 Abnormal findings on diagnostic imaging of other specified body structures (principal); R06.02 Shortness of breath
CPT/HCPCS: 71046; 87635; C9803; U0002

== ENCOUNTER → 2020-05-14 13:48 | Outpatient (CLI) | payer MEDICARE, SELFPAY ==
[2020-04-22 09:35] VITALS: BMI 42.9
--- NOTE | 2020-05-14 13:51 | ECHOCS_ITS ---
Reason For Study: ATRIAL FIB-FLUTTER Procedure This was a 2D Doppler, Color Flow transthoracic echocardiogram. The study was technically difficult. Contrast injection was performed. Exam performed in department. Left Ventricle Mildly dilated left ventricle. Severe segmental systolic dysfunction (see wall motion). The estimated ejection fraction is 20 %. Unable to assess diastolic dysfunction. Anterio-Basal: Hypokinetic. Infero-Basal: Severely Hypokinetic. Basal inferoseptal: Severely Hypokinetic. Basal anteroseptal: Severely Hypokinetic. Mid-Anterior : Akinetic. Mid-Lateral : Severely Hypokinetic. Mid-Posterior: Hypokinetic. Mid-Inferior: Severely Hypokinetic. Mid-inferoseptal : Akinetic. Mid- anteroseptal : Akinetic. Anterior [place] : Akinetic. Inferior [place] : Akinetic. Lateral [place] : Severely Hypokinetic. Septal [place] : Akinetic. Right Ventricle Normal RV size. Normal systolic function. Atria The left atrium is moderately enlarged. The right atrium is moderately enlarged. No doppler evidence for ASD. Mitral Valve There is mild mitral annular calcification. Extension of the mitral annular calcification onto the posterior mitral valve leaflet. Trivial mitral valve insufficiency. Tricuspid Valve Normal tricuspid valve. Trivial tricuspid valve insufficiency. Unable to estimate RV systolic pressure/pulmonary artery pressure due to technically difficult study. Aortic Valve Trisinus/trileaflet aortic valve. Normal aortic valve. Pulmonic Valve The pulmonic valve is not well visualized. Trivial pulmonic valve insufficiency. Great Vessels Normal sized aortic root. Pericardium/Pleural Trivial pericardial effusion. There are no echocardiographic indications of cardiac tamponade. Medication 22 gauge I.V. with prn adaptor inserted into right arm. Diluted definity 5ml given slow IV push to enhance endocardial definition. MMode/2D Measurements & Calculations LVIDd: 5.7 cm IVSd: 1.0 cm Ao root diam: 3.3 cm LVIDs: 4.7 cm LVPWd: 1.0 cm RVDd: 3.8 cm FS: 17.6 % LAV(MOD-bp): 70.5 ml LVAd ap4: 38.4 cm2 SV(MOD-sp4): 39.4 ml LAV(MOD-bp) Indexed: 29.2 ml/m2 EDV(MOD-sp4): 146.6 ml LAV(MOD-sp2): 72.5 ml EDV(sp4-el): 151.5 ml LAV(MOD-sp4): 62.2 ml LVAs ap4: 30.3 cm2 ESV(MOD-sp4): 107.3 ml ESV(sp4-el): 108.7 ml EF(MOD-sp4): 26.8 % EF(sp4-el): 28.3 % SV(sp4-el): 42.8 ml LA A4 area: 22.1 cm2 LA dimension(2D): 4.9 cm RA A4 area: 27.6 cm2 Doppler Measurements & Calculations MV E max thony: 92.3 cm/sec Ao V2 max: 95.7 cm/sec LV V1 max: 72.0 cm/sec Ao max P.7 mmHg LV V1 max P.1 mmHg PA V2 max: 63.0 cm/sec Interpretation Summary The study was technically difficult. Contrast injection was performed. Mildly dilated left ventricle. Severe segmental systolic dysfunction (see wall motion). The estimated ejection fraction is 20 %. The left atrium is moderately enlarged. The right atrium is moderately enlarged. There is mild mitral annular calcification. Extension of the mitral annular calcification onto the posterior mitral valve leaflet. Trivial mitral valve insufficiency. Trivial tricuspid valve insufficiency. Trivial pulmonic valve insufficiency. Trivial pericardial effusion. There are no echocardiographic indications of cardiac tamponade. Unable to estimate RV systolic pressure/pulmonary artery pressure due to technically difficult study. Unable to assess diastolic dysfunction. Ordering Physician: Andrew Anaya Referring Physician: CHRISTY JENKINS Performed By: Seema Hester RDKOKO
== END ==
LOC: CVS 13:50
PROVIDERS: PCP Student in an Organized Health Care Education/Training Program; Referring Provider Internal Medicine Cardiovascular Disease; Visit Provider Internal Medicine Cardiovascular Disease
DX: I25.10 Atherosclerotic heart disease of native coronary artery without angina pectoris (principal); I42.9 Cardiomyopathy, unspecified; I48.19 Other persistent atrial fibrillation; E78.5 Hyperlipidemia, unspecified; I10 Essential (primary) hypertension; R06.00 Dyspnea, unspecified; R60.0 Localized edema; Z95.5 Presence of coronary angioplasty implant and graft
CPT/HCPCS: 93306; Q9957; A4216; C8929

== ENCOUNTER → 2020-06-08 09:38 | Outpatient (CLI) | payer MEDICARE, SELFPAY ==
[2020-05-20 10:58] VITALS: BMI 43.0
[2020-06-01 09:03] VITALS: BMI 43.0
--- NOTE | 2020-06-09 14:41 | PFT ---
INTRODUCTION: The patient is a 64-year-old male that presents for pulmonary function studies secondary to a diagnosis of shortness of breath. Respiratory therapy reports good patient effort. Bronchodilators were used during testing. INTERPRETATION: Forced expiration spirometry demonstrates the presence of a moderate large airways obstructive ventilatory defect. There was no significant response to aerosolized bronchodilators. Spirograms are of good quality and do not plateau indicating slow emptying of the lungs. Body plethysmography was performed and revealed an elevated RV to 137% of predicted, indicative of underlying air trapping. Diffusing capacity by single breath CO was reduced at 75% of predicted. IMPRESSION: Irreversible moderate large airways obstructive ventilatory defect with associated air trapping and mild reduction in diffusing capacity.
== END ==
PROVIDERS: PCP Student in an Organized Health Care Education/Training Program; Referring Provider Internal Medicine Critical Care Medicine; Visit Provider Internal Medicine Critical Care Medicine
DX: R06.02 Shortness of breath (principal); F17.210 Nicotine dependence, cigarettes, uncomplicated
CPT/HCPCS: 94060; 94726; 94729

== ENCOUNTER 2021-01-23 18:55 | Inpatient (IN) | payer MEDICARE, MEDICAID, SELFPAY ==
[2021-01-23] VITALS (21 sets, daily range): BP systolic 111–170; BP diastolic 69–114; PULSE 92–150; RESP 12–31; TEMP 36.3–37.4; O2SAT 92–97; BMI 42.5; BMI 41.1
--- NOTE | 2021-01-23 19:10 | EKG12_ITS ---
Test Reason : DYSRHYTHMIA Blood Pressure : / mmHG Vent. Rate : 143 BPM Atrial Rate : 241 BPM P-R Int : 000 ms QRS Dur : 082 ms QT Int : 306 ms P-R-T Axes : 000 029 092 degrees QTc Int : 472 ms Atrial fibrillation /Flutter Low voltage QRS (Limb Leads) Abnormal ECG Confirmed by LIDIA JONES, JOSUE ([id number]), state editor AMANDO CHAWLA ([id number]) on 01/28/2021 1:03:18 PM Referred By: CLINTON Confirmed By:JOSUE MURILLO MD
[2021-01-23] MEDS: dilTIAZem 25 MG/5 ML Vial 10 MG IV BOLUS (19:24)
[2021-01-23] MEDS: 0.9% Normal Saline 1,000 ML 1000 ML IV (19:24)
--- NOTE | 2021-01-23 19:30 | EX.ED.DYSGE1 ---
HPI History of Present Illness Chief Complaint: Shortness of Breath Informant: patient Narrative Narrative: Patient is a 65-year-old male with a past medical history of CAD with multiple stents, heart failure, A. fib who presents to the emergency department for shortness of breath. He states that this has been ongoing for the past few weeks. Has been progressively getting worse. He states he has been noncompliant with all his medications over the past 2 months. He is supposed to be on Xarelto for his A. fib. He has been having generalized chest discomfort. He denies any heart palpitations. No abdominal pain or nausea/vomiting. He has had a mild cough productive of a white sputum. He states he has had a sick contact but does not think he had Covid. He has not been vaccinated for Covid. He has bilateral lower extremity swelling which is chronic for him. Patient does still smoke cigarettes. He denies any fevers but states he has had some chills. [facility] Medical History (Updated 01/23/21 @ 23:[address] Kemal Sanchez, ) A-fib Abscess of deep perineal space Atherosclerotic heart disease of [place] coronary artery without angina pectoris CAD in [place] artery Cardiomyopathy Chronic systolic (congestive) heart failure Community acquired pneumonia Essential hypertension Hyperlipidemia Hypertension NSTEMI (non-ST elevated myocardial infarction) Old myocardial infarction Old myocardial infarction Overweight Persistent atrial fibrillation Presence of stent in coronary artery (~04/02/19) Tobacco abuse Home Medications aspirin 81 mg tablet,delayed release 81 mg PO DAILY@0800 #30 tab 04/22/20 [Rx Last Taken Unknown] carvedilol 12.5 mg tablet 12.5 mg PO BID #60 tab 04/22/20 [Rx Last Taken Unknown] furosemide 40 mg tablet 40 mg PO DAILY #30 tab 04/22/20 [Rx Last Taken Unknown] nitroglycerin 0.4 mg sublingual tablet 0.4 mg SUBLINGUAL Q5-15M PRN #25 tab 04/22/20 [Rx Last Taken Unknown] potassium chloride 20 mEq tablet,extended release 20 meq PO DAILY #30 tab 04/22/20 [Rx Last Taken Unknown] pravastatin 80 mg tablet 80 mg PO QHS #30 tab 04/22/20 [Rx Last Taken Unknown] rivaroxaban 20 mg tablet 20 mg PO DAILY #30 tab 04/22/20 [Rx Last Taken Unknown] sacubitril 24 mg-valsartan 26 mg tablet 1 tab PO BID #60 tab 06/01/20 [Rx Last Taken Unknown] Allergy/AdvReac Type Severity Reaction Status Date / Time No Known Allergies Allergy Verified 01/23/21 18:58 Family History Father CAD (coronary artery disease) COPD (chronic obstructive pulmonary disease) Mother CAD (coronary artery disease) Brother CAD (coronary artery disease) Brother CAD (coronary artery disease) Other Heart disease Surgical History Presence of coronary angioplasty implant and graft (~04/02/19) Status post incision and drainage Social History (Updated 01/23/21 @ 20:[address] Jocelyn Valentine MD) household members: other details: Patient lives with his sister. Smoking Status: Current every day smoker tobacco type: cigarettes Smoking packs per day: 1.5 Smoking cigarettes per day: 30.0 Years smoked: 47 Smoking pack-years: 70.50 Tobacco: How many years used: 40 how long ago did patient quit smoking: Patient reports ongoing 1.5-2 ppd cig tob since teen. alcohol intake: never substance use type: other details: Patient reports now rare cannabis usage. caffeine: No what type of physical activity do you participate in: none frequency: does not exercise seatbelt use: always ROS ROS ED Constitutional Constitutional ED: Denies chills or fever(s) Eyes Eyes: Denies change in vision ENT ENT ED: Denies epistaxis or rhinorrhea Cardiovascular Cardiovascular: Reports chest pain; Denies palpitations or racing heartbeat Respiratory/Chest Respiratory/Chest: Reports cough, dyspnea and sputum Gastrointestinal Gastrointestinal: Denies abdominal pain, diarrhea, nausea or vomiting Genitourinary Genitourinary ED: Denies dysuria, hematuria or urinary frequency Musculoskeletal Musculoskeletal: Denies back pain or neck pain Integumentary Denies rash Neurologic Neurologic: Denies dizziness, headache(s) or weakness EXAM Physical Exam Const Vital Signs: 01/23/21 18:56 01/23/21 19:17 01/23/21 19:29 Temperature 99.2 F H Temperature Source Oral Pulse Rate 92 150 H 120 H Respiratory Rate 20 H 27 H Respiratory Effort Short of Breath Respiratory Depth Normal Respiratory Pattern Tachypnea Blood Pressure 149/103 H 130/98 H Blood Pressure Mean 118 108 Blood Pressure Position Blood Pressure Location Pulse Ox 94 96 Oxygen Delivery Method Room Air Nasal Cannula Nasal Cannula Oxygen Flow Rate (L/min) 2 2 01/23/21 20:04 01/23/21 20:13 01/23/21 20:35 Temperature Temperature Source Pulse Rate 114 H 128 H 141 H Respiratory Rate 28 H 26 H 30 H Respiratory Effort Respiratory Depth Respiratory Pattern Blood Pressure 131/84 H 131/84 H 147/86 H Blood Pressure Mean 99 99 106 Blood Pressure Position Semi-Fowlers Blood Pressure Location Right Arm Pulse Ox 95 94 Oxygen Delivery Method Nasal Cannula Nasal Cannula Oxygen Flow Rate (L/min) 2 2 Positive well nourished and well developed General Appearance ED: well developed and NAD HEENT Reports normocephalic, head/scalp atraumatic and moist mucous membranes Eyes PERRL and EOMs intact bilaterally Neck supple Chest Wall inspection of chest normal Resp normal respiratory effort and clear to auscultation bilaterally Auscultation: Negative for rales, rhonchi or wheezes Cardio no murmurs Rate: tachycardic Rhythm: abnormal rhythm GI normal to inspection, nondistended, normoactive bowel sounds and non-tender Palpation: soft; Negative for guarding or rebound tenderness present Extremity normal to inspection Extremity Narrative: Bilateral 1+ pitting edema. General Extremety ED: Yes edema; Negative for tenderness General Extremity: edema Neuro oriented x3, CN's II-XII intact bilaterally and no sensory deficits noted Sensorium / Orientation: alert Motor Exam: strength 5/5 throughout Psych mental status grossly normal Skin no rashes or lesions noted MDM MDM MDM Narrative Medical decision making narrative: Patient presents to the emergency department for chest tightness and shortness of breath. On arrival to the ED he is tachycardic and an irregularly irregular rhythm. He is satting 94% and started on supplemental oxygen. Will check x-ray, EKG and basic lab work. Patient started on a bolus of Cardizem as well as a Cardizem drip. He is given IV fluids. Will be cautious with this given his history of heart failure. Chest x-ray did not reveal any significant acute cardiopulmonary abnormality, there was mild pulmonary edema with cardiomegaly. Patient's troponin is within normal limits. He is not anemic but is actually mildly high on his hemoglobin. This could be due to some dehydration. No significant acute electrolyte disturbance. His BNP is within normal limits. Given the fact we are having difficulty controlling his heart rate he will need to be admitted for further evaluation and management. He understands and is agreeable this plan. He otherwise has remained stable throughout ED stay. Lab Data Labs: Laboratory Results - last 24 hr 01/23/21 01/23/21 01/23/21 19:12 19:12 19:12 WBC 8.0 RBC 5.79 Hgb 17.3 H Hct 53.9 MCV 93.1 MCH 29.9 MCHC 32.1 RDW Std Deviation 46.6 H RDW Coeff of Tami 13.6 Plt Count 186 MPV 10.7 Immature Gran % (Auto) 0.900 Neut % (Auto) 72.5 H Lymph % (Auto) 15.8 L Brantley % (Auto) 9.6 Eos % (Auto) 0.6 Baso % (Auto) 0.6 Absolute Neuts (auto) 5.8 Absolute Lymphs (auto) 1.27 Nucleated RBC % 0 Sodium 135 L Potassium 4.2 Chloride 102 Carbon Dioxide 28.0 Anion Gap 5 BUN 9 Creatinine 0.96 Estim Creat Clear Calc 76.20 Est GFR (MDRD) Af Amer 101 Est GFR (MDRD) Non-Af 84 BUN/Creatinine Ratio 9.3 L Glucose 97 Calcium 8.7 Magnesium Total Bilirubin 0.60 AST 20 ALT 25 Alkaline Phosphatase 72 Troponin I High Sens 42.2 B-Natriuretic Peptide 67.1 Total Protein 7.6 Albumin 3.7 Globulin 3.9 Albumin/Globulin Ratio 0.9 01/23/21 19:12 WBC RBC Hgb Hct MCV MCH MCHC RDW Std Deviation RDW Coeff of Tami Plt Count MPV Immature Gran % (Auto) Neut % (Auto) Lymph % (Auto) Brantley % (Auto) Eos % (Auto) Baso % (Auto) Absolute Neuts (auto) Absolute Lymphs (auto) Nucleated RBC % Sodium Potassium Chloride Carbon Dioxide Anion Gap BUN Creatinine Estim Creat Clear Calc Est GFR (MDRD) Af Amer Est GFR (MDRD) Non-Af BUN/Creatinine Ratio Glucose Calcium Magnesium 1.8 Total Bilirubin AST ALT Alkaline Phosphatase Troponin I High Sens B-Natriuretic Peptide Total Protein Albumin Globulin Albumin/Globulin Ratio Radiography Diagnostic Testing: Radiology Impression Chest X-Ray 01/23/21 19:44 IMPRESSION: 1. Moderate cardiomegaly, mild pulmonary edema. Electronically Signed: Rosey Alvarez MD at 20:56 EDT Tel , Service support , EKG Initial EKG: Attestation: I personally reviewed and interpreted this EKG as follows: (Rate of 143 bpm in A. fib. Normal intervals. Normal axis. No significant ST elevations or depressions. No T wave abnormalities.) Discharge Plan Dx/Rx/DC Orders Clinical Impression: Atrial fibrillation with RVR, Dyspnea, Noncompliance with medication regimen Disposition Disposition: Acute Care Hospital [facility] Discharge Date/Time: 01/23/21 21:01
[2021-01-23 19:31] LABS: Absolute Lymphocyte Count 1.27 X10^3/uL (0.83-4.51); Absolute Neutrophil Count 5.8 X10^3/uL (2.0-7.7); Basophil# 0.05 X10^3/uL; Basophil% 0.6 % (0-1); Eosinophil# 0.05 X10^3/uL; Eosinophils% 0.6 % (0-5); Hematocrit 53.9 % (40-54); Hemoglobin 17.3 g/dL (13.0-16.5); Lymphocyte # 1.27 X10^3/ul (0.83-4.51); Lymphocyte % 15.8 % (19-41); Mean Corp Hgb Conc 32.1 g/dL (32-36); Mean Corpuscular Hgb 29.9 pg (27.0-32.0); Mean Corpuscular Volume 93.1 fL (80-94); Mean Platelet Vol. 10.7 fl (6.2-12.0); Monocyte# 0.77 X10^3/uL; Monocyte% 9.6 % (0-10); NRBC Flagged by Analyzer 0 % (0-5); Neutrophil # 5.81 X10^3/uL (2.7-7.7); Neutrophil % 72.5 % (47-70); Platelet Count 186 K/mm3 (150-450); RBC Distribution Width CV 13.6 % (11.6-14.6); RBC Distribution Width SD 46.6 fl (35.1-43.9); Red Blood Count 5.79 M/mm3 (4.6-6.2)
--- NOTE | 2021-01-23 19:44 | RAD_ITS ---
STUDY: X-RAY CHEST REASON FOR EXAM: Male, 65 years old. SOB TECHNIQUE: Frontal portable view of the chest COMPARISON: 22 April 2020 FINDINGS: The heart is moderately enlarged. There is mild pulmonary edema. There is no pneumothorax, pleural effusions or lobar opacities. Osseous structures are intact. RAD/Chest 1 View (Portable) IMPRESSION: 1. Moderate cardiomegaly, mild pulmonary edema. Electronically Signed: Rosey Alvarez MD at 20:56 EDT Tel , Service support ,
[2021-01-23 19:48] LABS: ALB/GLOB Ratio 0.9 RATIO (0.9-2.4); AST(SGOT) 20 U/L (15-37); Alanine Aminotransfer ALT/SGPT 25 U/L (16-61); Albumin, Serum 3.7 g/dL (3.2-5.0); Alkaline Phosphatase 72 U/L (45-117); Anion Gap 5 (5-15); BNP,B-Type NATRIURETIC PEPTIDE 67.1 pg/mL (0-100); BUN 9 mg/dL (7-18); BUN/Creat Ratio 9.3 RATIO (10-20); Calcium,Total 8.7 mg/dL (8.5-10.1); Chloride 102 mmol/L (98-107); Creatinine, Serum 0.96 mg/dL (0.70-1.30); EST Glomerular Filtration Rate 84 mL/min (>60); Est Glom Filt Rate - Afr Amer 101 mL/min (>60); Globulin 3.9 g/dL (2.2-4.2); Glucose 97 mg/dL (74-106); Potassium 4.2 mmol/L (3.5-5.1); Protein, Total 7.6 g/dL (6.4-8.2); Sodium Level 135 mmol/L (136-145); Troponin-I HS 42.2 pg/mL (3.0-78.5)
--- NOTE | 2021-01-23 20:37 | ED.RN ---
per Dr Sanchez-increase cardizem gtt to 10mL/hr now.
--- NOTE | 2021-01-23 20:38 | PCM.HP.STD ---
HPI - General General Date of Admission: 01/23/21 Date of Service: 01/23/21 Chief Complaint: Dyspnea HPI Narrative The patient is a 65 y/o M w/ PMHx: Morbid Obesity, Persistent AF, CAD s/p PCI, Chronic Systolic CHF/Cardiomyopathy unclear type, HTN, HLD, Tobacco use who presents to the [facility] ED on 01/23/21 with history of progressively worsening dyspnea ongoing for the past few weeks, progressively worsening with admitted noncompliance with any of his medications x2 months including medications for his atrial fibrillation with ongoing intermittent chest discomfort with no specific palpitations with a mild cough productive of white sputum with chronic lower extremity swelling with subjective chills but denied fevers. Patient has not been vaccinated against Covid. He denies specifically any ill contacts. He denies any difficulty laying flat or marked weight gain or edema above chronic. Work-up in the ED included T 99.2, heart rate ranging 1 50-92, BP 149/103, respiratory rate ranging 20-27, 92% on room air with improvement to 96% on 2 L nasal cannula, CBC with WBC 8, hemoglobin 17.3, platelet 186 without marked shift, CMP with sodium 135 otherwise not marked appearing, BNP 67.1, high-sensitivity troponin 42.2, rapid SARS Covid antigen negative, EKG with atrial fibrillation with RVR with no acute evidence of ischemia, chest x-ray with no acute cardiopulmonary findings, mild congestion. [facility] Medical History (Updated 01/23/21 @ 20:[address] Jocelyn Valentine MD) A-fib Abscess of deep perineal space Atherosclerotic heart disease of [place] coronary artery without angina pectoris CAD in [place] artery Cardiomyopathy Chronic systolic (congestive) heart failure Community acquired pneumonia Essential hypertension Hyperlipidemia Hypertension NSTEMI (non-ST elevated myocardial infarction) Old myocardial infarction Old myocardial infarction Overweight Persistent atrial fibrillation Presence of stent in coronary artery (~04/02/19) Tobacco abuse Home Medications aspirin 81 mg tablet,delayed release 81 mg PO DAILY@0800 #30 tab 04/22/20 [Rx Last Taken Unknown] carvedilol 12.5 mg tablet 12.5 mg PO BID #60 tab 04/22/20 [Rx Last Taken Unknown] furosemide 40 mg tablet 40 mg PO DAILY #30 tab 04/22/20 [Rx Last Taken Unknown] nitroglycerin 0.4 mg sublingual tablet 0.4 mg SUBLINGUAL Q5-15M PRN #25 tab 04/22/20 [Rx Last Taken Unknown] potassium chloride 20 mEq tablet,extended release 20 meq PO DAILY #30 tab 04/22/20 [Rx Last Taken Unknown] pravastatin 80 mg tablet 80 mg PO QHS #30 tab 04/22/20 [Rx Last Taken Unknown] rivaroxaban 20 mg tablet 20 mg PO DAILY #30 tab 04/22/20 [Rx Last Taken Unknown] sacubitril 24 mg-valsartan 26 mg tablet 1 tab PO BID #60 tab 06/01/20 [Rx Last Taken Unknown] Allergy/AdvReac Type Severity Reaction Status Date / Time No Known Allergies Allergy Verified 01/23/21 18:58 Family History Father CAD (coronary artery disease) COPD (chronic obstructive pulmonary disease) Mother CAD (coronary artery disease) Brother CAD (coronary artery disease) Brother CAD (coronary artery disease) Other Heart disease Surgical History Presence of coronary angioplasty implant and graft (~04/02/19) Status post incision and drainage Social History (Updated 01/23/21 @ 20:[address] Jocelyn Valentine MD) household members: other details: Patient lives with his sister. Smoking Status: Current every day smoker tobacco type: cigarettes Smoking packs per day: 1.5 Smoking cigarettes per day: 30.0 Years smoked: 47 Smoking pack-years: 70.50 Tobacco: How many years used: 40 how long ago did patient quit smoking: Patient reports ongoing 1.5-2 ppd cig tob since teen. alcohol intake: never substance use type: other details: Patient reports now rare cannabis usage. caffeine: No what type of physical activity do you participate in: none frequency: does not exercise seatbelt use: always ROS ROS Narrative Admission Review of Systems: CONSTITUTIONAL: No weight loss, fever, chills, + weakness or fatigue. HEENT: Eyes: No visual loss, blurred vision, double vision or yellow sclerae. Ears, Nose, Throat: No hearing loss, sneezing, congestion, runny nose or sore throat. SKIN: No rash or itching, lesions, wounds. CARDIOVASCULAR: + Chronic edema, No chest pain, chest pressure or chest discomfort, palpitations, orthopnea, syncopal events. RESPIRATORY: + shortness of breath, occasional cough, scant white sputum, occasional wheezing, No hemoptysis. GASTROINTESTINAL: No anorexia, nausea, vomiting or diarrhea, abdominal pain, melena, BRBPR. GENITOURINARY: No dysuria, frequency, urgency or retention. NEUROLOGICAL: No headache, dizziness, syncope, paralysis, ataxia, numbness or tingling in the extremities, focal weakness, change in bowel or bladder control, seizure. MUSCULOSKELETAL: + muscle, back pain, joint pain or stiffness. HEMATOLOGIC: No anemia, bleeding or bruising. LYMPHATICS: No enlarged nodes. No history of splenectomy. PSYCHIATRIC: No history of depression or anxiety. ENDOCRINOLOGIC: No reports of sweating, cold or heat intolerance. No polyuria or polydipsia. ALLERGIES: No history of asthma, hives, eczema or rhinitis. Vital Signs Vital Signs Vital Signs: 01/23/21 18:56 01/23/21 19:17 01/23/21 19:29 Temperature 99.2 F H Temperature Source Oral Pulse Rate 92 150 H 120 H Respiratory Rate 20 H 27 H Respiratory Effort Short of Breath Respiratory Depth Normal Respiratory Pattern Tachypnea Blood Pressure 149/103 H 130/98 H Blood Pressure Mean 118 108 Blood Pressure Position Blood Pressure Location Pulse Ox 94 96 Oxygen Delivery Method Room Air Nasal Cannula Nasal Cannula Oxygen Flow Rate (L/min) 2 2 01/23/21 20:04 01/23/21 20:13 01/23/21 20:35 Temperature Temperature Source Pulse Rate 114 H 128 H 141 H Respiratory Rate 28 H 26 H 30 H Respiratory Effort Respiratory Depth Respiratory Pattern Blood Pressure 131/84 H 131/84 H 147/86 H Blood Pressure Mean 99 99 106 Blood Pressure Position Semi-Fowlers Blood Pressure Location Right Arm Pulse Ox 95 94 Oxygen Delivery Method Nasal Cannula Nasal Cannula Oxygen Flow Rate (L/min) 2 2 Weight Weight: 279 lb 15.793 oz Body Mass Index (BMI) 42.5 Physical Exam Narrative Physical Examination: General: Awake, alert, oriented x 3 and cooperative, seated upright in bed in no apparent distress. Skin: Normal color, normal turgor, no icterus, no cyanosis. HEENT: AT/NC, EOMI, PERRLA, mildly dry MM, no obvious carotid bruits or marked JVD noted; however thickened neck makes examination difficult. Lungs: Diminished breath sounds, greater bases, mildly tight, mildly increased respiratory rate but no distress, no rales, ronchi or wheezing. Heart: Irregular regular; no gallop, rub audible. Abdomen: Soft, morbidly obese, NTTP, no obvious distention, distant normal BS, no obvious HSM; however habitus makes examination difficult. Extremities: No cyanosis, no clubbing, mild ankle and distal ma edema, not pitting. Neurological: Patient awake, alert, oriented as noted, cognitive function intact; pupils equally reactive to light and accommodation, cranial nerves II-XII grossly normal, moving all 4 extremities, no focal deficits, strength mildly to moderately global decrease secondary to acute presentation and complaints. Psychiatric: Affect appears fatigued otherwise normal, no acute evidence of depressive or anxiety feelings. Results Lab / Micro Data Result Diagrams: 01/23/21 19:12 01/23/21 19:12 Labs: Laboratory Results - last 24 hr 01/23/21 19:12: WBC 8.0, RBC 5.79, Hgb 17.3 H, Hct 53.9, MCV 93.1, MCH 29.9, MCHC 32.1, RDW Std Deviation 46.6 H, RDW Coeff of Tami 13.6, Plt Count 186, MPV 10.7, Immature Gran % (Auto) 0.900, Neut % (Auto) 72.5 H, Lymph % (Auto) 15.8 L, Crock[place] % (Auto) 9.6, Eos % (Auto) 0.6, Baso % (Auto) 0.6, Absolute Neuts (auto) 5.8, Absolute Lymphs (auto) 1.27, Nucleated RBC % 0 01/23/21 19:12: Sodium 135 L, Potassium 4.2, Chloride 102, Carbon Dioxide 28.0, Anion Gap 5, BUN 9, Creatinine 0.96, Estim Creat Clear Calc 76.20, Est GFR (MDRD) Af Amer 101, Est GFR (MDRD) Non-Af 84, BUN/Creatinine Ratio 9.3 L, Glucose 97, Calcium 8.7, Total Bilirubin 0.60, AST 20, ALT 25, Alkaline Phosphatase 72, Troponin I High Sens 42.2, Total Protein 7.6, Albumin 3.7, Globulin 3.9, Albumin/Globulin Ratio 0.9 01/23/21 19:12: B-Natriuretic Peptide 67.1 Micro: Microbiology 01/23/21 19:12 Mucosa - Nasopharyngeal SARS-CoV-2 Antigen (Rapid) - Final Assessment & Plan Assessment/Plan (1) Atrial fibrillation with RVR: PLAN: The patient is a 65 y/o M w/ PMHx: Morbid Obesity, Persistent AF, CAD s/p PCI, Chronic Systolic CHF/Cardiomyopathy unclear type, HTN, HLD, Tobacco use who presents to the [facility] ED on 01/23/21 with history of progressively worsening dyspnea ongoing for the past few weeks, progressively worsening with admitted noncompliance with any of his medications x2 months including medications for his atrial fibrillation with ongoing intermittent chest discomfort with no specific palpitations with a mild cough productive of white sputum with chronic lower extremity swelling. 1. Dyspnea, Suspect Multifactorial, primarily secondary to Persistent atrial fibrillation with RVR: EKG in ED w/ atrial fibrillation w/ RVR. Will admit to PCU, maintain on telemetry, obtain cardiac enzyme serial set, obtain magnesium level, obtain ECHO, obtain TSH level. We will reinitiate patient Xarelto as well as Coreg regimen with dose now however if ongoing RVR will initiate Cardizem bolus with drip. 2. Chronic systolic CHF/HFrEF/Cardiomyopathy unclear type, chronic, does not appear severely decompensated: 05/14/20 ECHO w/ mildly dilated LV, severe segmental systolic dysfunction, EF 20%, moderately enlarged LA and RA, trivial MVI, trivial TVI, trivial TVI, trivial pericardial effusion at that time with no evident location of cardiac tamponade. Will maintain on cardiac telemetry obtain cardiac enzyme series, obtain serial EKGs, reinitiate patient diuretic regimen with IV dosing x 1 and then oral transition with BNP as noted normal, monitor I/Os, reinitiate medical therapy with Xarelto, Coreg, Lasix, Entresto as well as aspirin. Given timeline ECHO requested. TSH and magnesium levels pending. Will place snug IJEOMA wraps. 3. Chronic COPD: Not on any routine regimen, will cautiously initiate ATC duonebs given atrial fibrillation as noted, PRN albuterol, HOB, IS parameters. 4. CAD: Status post PCI, will reinitiate patient aspirin, Xarelto, Coreg, Entresto and statin therapy. 5. Hypertension: We will reinitiate patient home regimen including Coreg, Lasix, Entresto, PRN hydralazine. 6. Hyperlipidemia: We will reinitiate patient statin therapy, FLP in AM. 7. Tobacco Abuse: Encouraged cessation, inpatient consultation per RT, NR if desired. 8. Morbid Obesity: Weight loss and lifestyle changes encouraged, nutrition consulted. 9. DVT prophylaxis: SCDs, plan reinitiation of home previous Xarelto regimen. 10. CODE status: Patient HCPOA and living will is not set-up. Discussed given his age and co-morbidities would be appropriate. Discussed CODE status at length including difference between FULL code, DNR-CCA and DNR-CC status. Following discussions about the differences in these status, requested Full Code status. Advanced Care Planning Face to Face Time: 16 minutes. Charges/Coding Visit Charges Inpatient E&M: 68839 Init Hosp L3 Procedures Hospitalists Procedures: 39600 Advncd Care Plan 30 Min
[2021-01-23 21:07] LABS: Magnesium 1.8 mg/dL (1.6-2.6)
--- NOTE | 2021-01-23 21:15 | ECHOD_ITS ---
Reason For Study: CHF Procedure This was a 2D Doppler, Color Flow transthoracic echocardiogram. The study was technically difficult. Exam performed portable in patient room. Left Ventricle Normal LV size. Moderate segmental systolic dysfunction (see wall motion). The estimated ejection fraction is 30 %. Unable to assess diastolic dysfunction. Anterio-Basal: Hypokinetic. Infero-Basal: Akinetic. Basal inferoseptal: Hypokinetic. Mid-Anterior : Hypokinetic. Mid-Lateral : Hypokinetic. Mid-Posterior: Hypokinetic. Mid-Inferior: Akinetic. Mid-inferoseptal : Hypokinetic. Mid- anteroseptal : Hypokinetic. Anterior [place] : Akinetic. Inferior [place] : Akinetic. Lateral [place] : Hypokinetic. Septal [place] : Hypokinetic. Right Ventricle Normal RV size. Normal systolic function. Atria The left atrium is moderately enlarged. The right atrium is moderately enlarged. No doppler evidence for ASD. Mitral Valve There is mild mitral annular calcification. Normal mitral valve. Trivial mitral valve insufficiency. Tricuspid Valve Normal tricuspid valve. Trivial tricuspid valve insufficiency. Unable to estimate RV systolic pressure/pulmonary artery pressure due to technically difficult study. Aortic Valve Trisinus/trileaflet aortic valve. Mild diffuse aortic valve thickening. Mild focal aortic valve calcification. Pulmonic Valve The pulmonic valve is not well visualized. Great Vessels Normal sized aortic root. Pericardium/Pleural No pericardial effusion. MMode/2D Measurements & Calculations LVIDd: 5.2 cm IVSd: 1.1 cm Ao root diam: 3.2 cm LVIDs: 3.9 cm LVPWd: 1.1 cm RVDd: 3.4 cm FS: 25.8 % LAV(MOD-bp): 70.2 ml LVAd ap4: 33.7 cm2 SV(MOD-sp4): 54.6 ml LAV(MOD-bp) Indexed: 29.8 ml/m2 LVLd ap4: 7.7 cm LAV(MOD-sp2): 68.7 ml EDV(MOD-sp4): 123.6 ml LAV(MOD-sp4): 65.1 ml EDV(sp4-el): 126.0 ml LVAs ap4: 23.2 cm2 LVLs ap4: 6.7 cm ESV(MOD-sp4): 69.0 ml ESV(sp4-el): 68.7 ml EF(MOD-sp4): 44.2 % EF(sp4-el): 45.5 % SV(sp4-el): 57.3 ml LA A4 area: 22.3 cm2 LA dimension(2D): 3.8 cm RA A4 area: 25.1 cm2 Doppler Measurements & Calculations MV E max thony: 115.6 cm/sec Ao V2 max: 153.3 cm/sec LV V1 max: 90.7 cm/sec Ao max P.5 mmHg LV V1 max P.3 mmHg PA V2 max: 81.0 cm/sec ECHO/Echo Complete Interpretation Summary The study was technically difficult. Moderate segmental systolic dysfunction (see wall motion). The estimated ejection fraction is 30 %. The left atrium is moderately enlarged. The right atrium is moderately enlarged. There is mild mitral annular calcification. Trivial mitral valve insufficiency. Trivial tricuspid valve insufficiency. Mild diffuse aortic valve thickening. Mild focal aortic valve calcification. Unable to estimate RV systolic pressure/pulmonary artery pressure due to techni amanda difficult study. Unable to assess diastolic dysfunction. Ordering Physician: Jocelyn Valentine Referring Physician: CHRISTY JENKINS Performed By: Seema Hester RDCS
[2021-01-23] MEDS: Furosemide 40 MG/4 ML Vial IV (21:31)
[2021-01-23] MEDS: 0.9% Saline Lock 10 ML Syringe IV ×2 (21:31→21:51)
[2021-01-23] MEDS: MethylPREDNISolone 125 MG/2 ML Vial IV (21:51)
[2021-01-23] MEDS: LORazepam 2 MG/ML Syringe 1 MG IV (21:51)
[2021-01-23 22:10] LABS: Allen Test Negative; Base Excess -1 mmol/L (-2 to +2); Bicarbonate 24.6 mmol/L (22-26); Blood Gas Specimen Type ART; FI02 28; O2 Delivery Device Cannula; PO2 108 mmHG (75-100); SITE R Radial; SO2 98 % (95-99); Total Carbon Dioxide 26 mmol/L; pH 7.38 (7.35-7.45)
[2021-01-23] MEDS: Albuterol 2.5 MG/3 ML VIAL.NEB. INHALATION (22:15)
[2021-01-23 22:36] LABS: Troponin-I HS 46.6 pg/mL (3.0-78.5)
[2021-01-23] MEDS: Digoxin 250 MCG/ML Ampul IV (22:53)
[2021-01-23 22:58] LABS: Procalcitonin 0.09 ng/mL (0.00-0.09)
[2021-01-23] MEDS: Amiodarone 360 MG in Dextrose 5% Viaflo Bag 192.8 ML 33.3 MG CONT INF (23:00)
[2021-01-23] MEDS: Rivaroxaban 20 MG Tablet PO (23:01)
[2021-01-23] MEDS: Pravastatin 80 MG Tablet PO (23:01)
[2021-01-23] MEDS: SACUBITRIL/VALSARTAN 24/26 MG TABLET 1 EACH PO (23:01)
[2021-01-23] MEDS: Carvedilol 12.5 MG Tablet PO (23:01)
[2021-01-24] VITALS (45 sets, daily range): BP systolic 77–134; BP diastolic 50–93; PULSE 61–100; RESP 12–22; TEMP 36–37.2; O2SAT 89–99
[2021-01-24 02:06] LABS: Troponin-I HS 61.7 pg/mL (3.0-78.5)
[2021-01-24] MEDS: Amiodarone 360 MG in Dextrose 5% Viaflo Bag 192.8 ML 16.7 MG CONT INF (05:05)
[2021-01-24] MEDS: 0.9% Saline Lock 10 ML Syringe IV ×2 (05:05→21:01)
[2021-01-24 06:01] LABS: Basophil# 0.03 X10^3/uL; Basophil% 0.5 % (0-1); Eosinophil# 0.01 X10^3/uL; Eosinophils% 0.2 % (0-5); Hematocrit 51.8 % (40-54); Hemoglobin 16.7 g/dL (13.0-16.5); Mean Corp Hgb Conc 32.2 g/dL (32-36); Mean Corpuscular Hgb 30.1 pg (27.0-32.0); Mean Corpuscular Volume 93.5 fL (80-94); Mean Platelet Vol. 11.1 fl (6.2-12.0); Monocyte% 1.7 % (0-10); NRBC Flagged by Analyzer 0 % (0-5); Neutrophil # 4.96 X10^3/uL (2.7-7.7); Neutrophil % 85.1 % (47-70); POSITIVE MORPHOLOGY YES; Platelet Count 175 K/mm3 (150-450); RBC Distribution Width CV 13.5 % (11.6-14.6); RBC Distribution Width SD 46.7 fl (35.1-43.9); Red Blood Count 5.54 M/mm3 (4.6-6.2); White Blood Count 5.8 K/mm3 (4.4-11.0)
[2021-01-24 06:15] LABS: Differential Indicated SCAN CRITERIA MET
[2021-01-24 06:44] LABS: ALB/GLOB Ratio 0.8 RATIO (0.9-2.4); AST(SGOT) 32 U/L (15-37); Alanine Aminotransfer ALT/SGPT 25 U/L (16-61); Albumin, Serum 3.2 g/dL (3.2-5.0); Alkaline Phosphatase 65 U/L (45-117); Anion Gap 3 (5-15); BUN 11 mg/dL (7-18); BUN/Creat Ratio 10.4 RATIO (10-20); Calcium,Total 8.3 mg/dL (8.5-10.1); Chloride 101 mmol/L (98-107); Cholesterol 156 mg/dL (200); Creatinine, Serum 1.06 mg/dL (0.70-1.30); EST Glomerular Filtration Rate 75 mL/min (>60); Est Glom Filt Rate - Afr Amer 91 mL/min (>60); Estimated Creatinine Clearance 69.01 ml/min; Globulin 4.1 g/dL (2.2-4.2); Glucose 150 mg/dL (74-106); High Density Lipoprotein 29 mg/dL; Potassium 5.1 mmol/L (3.5-5.1); Protein, Total 7.3 g/dL (6.4-8.2); Sodium Level 132 mmol/L (136-145); Thyroid Stim Hormone (TSH) 0.32 uIU/mL (0.358-3.74); Triglycerides 116 mg/dL; Very Low Density Lipoprotein 23 mg/dL (5-40)
[2021-01-24] MEDS: Ipratropium/Albuterol Sulfate 3 ML AMPUL.NEB INHALATION ×4 (06:45→19:28)
[2021-01-24 06:54] LABS: Differential Comment SCANNED
[2021-01-24] MEDS: Furosemide 40 MG Tablet PO (09:32)
[2021-01-24] MEDS: Rivaroxaban 20 MG Tablet PO (09:32)
[2021-01-24] MEDS: Carvedilol 12.5 MG Tablet PO ×2 (09:32→21:01)
[2021-01-24] MEDS: Potassium Chloride Oral Tablet 20 MEQ PO (09:32)
[2021-01-24] MEDS: Aspirin E.C. 81 MG Tablet PO (09:33)
--- NOTE | 2021-01-24 10:01 | CON.PCM.CA_ITS ---
Assessment & Plan Assessment/Plan (1) Atrial fibrillation with RVR: PLAN: At the present time the patient appears to be in atrial fibrillation/flutter with RVR. He has been treated medically. His ventricular rate has come under better control. He will need continued rate control therapy and anticoagulant therapy. (2) Atherosclerotic heart disease of [place] coronary artery without angina pectoris: QUALIFIERS: [place] vs. transplanted heart: [place] heart Qualified Code(s): I25.10 - Atherosclerotic heart disease of [place] coronary artery without angina pectoris PLAN: He has a history of CAD status post PCI. He is without acute coronary syndrome symptoms at this time. His troponin I levels are negative. He will need to be restarted on his medications. (3) Presence of stent in coronary artery: PLAN: His previous PCI history is reviewed. Need to be restarted on medical therapy. (4) Cardiomyopathy: QUALIFIERS: Cardiomyopathy type: unspecified Qualified Code(s): I42.9 - Cardiomyopathy, unspecified PLAN: He has a history of diminished LV systolic function. He has not been able to remain on his medications which theoretically may help his overall LV systolic function improved. His LV systolic function can be reassessed with echocardiographic studies to assist in his ongoing evaluation and care. (5) Hyperlipidemia: QUALIFIERS: Hyperlipidemia type: unspecified Qualified Code(s): E78.5 - Hyperlipidemia, unspecified PLAN: He has a history of hyperlipidemia. He will need to restart his medical management. (6) Essential hypertension: PLAN: His blood pressure can be followed with his medicines adjusted accordingly. (7) Noncompliance with medication regimen: PLAN: Unfortunately he has a history of noncompliance with his medications. This is not the first time he has been without his medications for period of time. Perhaps social worker psychiatric can evaluate the patient with respect to any possible assistance he may be able to receive to help him maintain his medications in order to keep his cardiovascular symptoms/status stable, allow his LV function and opportunity to improve, and minimize repeat hospitalizations. Addt'l Comments This note was generated using a voice recognition system and there may be incorrect words, spelling or punctuation that were not noted when reviewing the office note prior to saving. HPI Consult Data Date of Consult: 01/24/21 HPI Narrative HPI Narrative: NIGEL ESPINOSA, is a 65 year old white male who presents with a past cardiovascular history of underlying CAD, PCI, cardiomyopathy, atrial fibrillation, hyperlipidemia, and hypertension who presents for worsening shortness of breath/dyspnea. He states, as in the past, his social situation is not well. He has been living with his sister. He has been challenged with respect to getting and maintaining his medications. Thus, he readily admits, no excuses , that he has been without his medicines for some time now. He states he was feeling well without them for period of time. However more recently he has become progressively short of breath and dyspneic including having orthopnea as well as lower extremity peripheral pitting edema. He denied any ongoing chest discomfort. He states he was not able to sense his heart rate/rhythm. He denied any near-syncope or syncope. He states he has been trying to do the best he can in the hopes that his overall cardiac function woul d improve and he would not necessarily need a future ICD device. He presented to [facility] for further evaluation. He was found to be in atrial fibrillation/flutter with RVR. He has had troponin I levels performed which have been negative. His ECG demonstrated the appearance of a low voltage QRS in the limb leads. His chest x-ray findings are as noted below. He has undergone previous noninvasive and invasive cardiovascular evaluation. His studies are noted below. Since being in the hospital he has been treated medically to assist with rate control. This has included a combination of IV digitalis, IV diltiazem, and IV amiodarone. He has been restarted on his cardiovascular medical therapy. FOR[facility]LY [facility] Medical History (Updated 01/23/21 @ 23:[address] 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 CAD in [place] artery Cardiomyopathy Chronic systolic (congestive) heart failure Community acquired pneumonia Essential hypertension Hyperlipidemia Hypertension NSTEMI (non-ST elevated myocardial infarction) Old myocardial infarction Old myocardial infarction Overweight Persistent atrial fibrillation Presence of stent in coronary artery (~04/02/19) Tobacco abuse Home Medications aspirin 81 mg tablet,delayed release 81 mg PO DAILY@0800 #30 tab 04/22/20 [Rx Last Taken Unknown] carvedilol 12.5 mg tablet 12.5 mg PO BID #60 tab 04/22/20 [Rx Last Taken Unknown] furosemide 40 mg tablet 40 mg PO DAILY #30 tab 04/22/20 [Rx Last Taken Unknown] nitroglycerin 0.4 mg sublingual tablet 0.4 mg SUBLINGUAL Q5-15M PRN #25 tab 04/22/20 [Rx Last Taken Unknown] potassium chloride 20 mEq tablet,extended release 20 meq PO DAILY #30 tab 04/22/20 [Rx Last Taken Unknown] pravastatin 80 mg tablet 80 mg PO QHS #30 tab 04/22/20 [Rx Last Taken Unknown] rivaroxaban 20 mg tablet 20 mg PO DAILY #30 tab 04/22/20 [Rx Last Taken Unknown] sacubitril 24 mg-valsartan 26 mg tablet 1 tab PO BID #60 tab 06/01/20 [Rx Last Taken Unknown] Allergy/AdvReac Type Severity Reaction Status Date / Time No Known Allergies Allergy Verified 01/23/21 18:58 Family History Father CAD (coronary artery disease) COPD (chronic obstructive pulmonary disease) Mother CAD (coronary artery disease) Brother CAD (coronary artery disease) Brother CAD (coronary artery disease) Other Heart disease Surgical History Presence of coronary angioplasty implant and graft (~04/02/19) Status post incision and drainage Social History (Updated 01/23/21 @ 20:[address] Jocelyn Valentine MD) household members: other details: Patient lives with his sister. Smoking Status: Current every day smoker tobacco type: cigarettes Smoking packs per day: 1.5 Smoking cigarettes per day: 30.0 Years smoked: 47 Smoking pack- years: 70.50 Tobacco: How many years used: 40 how long ago did patient quit smoking: Patient reports ongoing 1.5-2 ppd cig tob since teen. alcohol intake: never substance use type: other details: Patient reports now rare cannabis usage. caffeine: No what type of physical activity do you participate in: none frequency: does not exercise seatbelt use: always ROS Constitutional Constitutional: Reports as per HPI Eyes Eyes: Reports as per HPI ENT HEENT: Reports as per HPI Cardiovascular Cardiovascular: Reports dyspnea, dyspnea at rest, dyspnea on exertion and edema Respiratory/Chest Respiratory/Chest: Reports dyspnea and dyspnea on exertion Gastrointestinal Gastrointestinal: Reports as per HPI Genitourinary Genitourinary: Reports as per HPI Musculoskeletal Musculoskeletal: Reports as per HPI Integumentary Integumentary: Reports as per HPI Neurologic Neurologic: Reports as per HPI Physical Exam Narrative The patient is awake and alert and in no acute distress. Const alert, oriented x3 and no apparent distress Orientation / Consciousness: awake HEENT normocephalic, head/scalp atraumatic and hearing grossly normal bilaterally Eyes PERRL, EOMs intact bilaterally and conjunctivae normal Neck full ROM, supple and no JVD Chest inspection of chest normal Resp Auscultation: wheezes expiratory wheezes and throughout Cardio Rhythm: abnormal rhythm irregularly irregular Heart Sounds: S1 normal and S2 normal GI normal to inspection, nondistended, normoactive bowel sounds Extremity General Extremity: edema bilateral lower extremity Details: mild Skin no rashes or lesions noted Neuro oriented x3, moves all extremities, no focal motor deficits and no sensory deficits noted Psych mental status grossly normal Procedure Criteria Type of Procedure Procedure Type: Elective Elective Risks - COVID COVID Risk Discussion: The surgeon/proceduralist and patient have discussed in detail the risk of exposure to and/or potential harm posed by the COVID-19 virus with having a surgery/procedure at this time versus the risk of delaying the surgery/procedure. It is not possible to know either the risk of delaying the surgery or procedure or chance of getting an infection with perfect accuracy, bu t a joint decision was made between the patient and the surgeon/proceduralist to proceed at this time with the scheduled surgery/procedure as indicated on the consent form. Objective Data Vital Signs: Vital Signs Temp Pulse Resp BP Pulse Ox 98.3 F 78 18 108/76 94 01/24/21 09:26 01/24/21 09:26 01/24/21 09:26 01/24/21 09:26 01/24/21 09:26 Oxygen Flow Rate (L/min) 2 Oxygen Delivery Method Nasal Cannula Weight: 268 lb 1.314 oz Body Mass Index (BMI) 41.1 Intake & Output: Intake and Output for Last 24 Hours 01/22/21 01/23/21 01/24/21 23:59 23:59 23:59 Intake Total 1278.99 / 1278.99 907.08 / 907.08 Output Total 1350 / 1350 250 / 250 Balance -71.01 / -71.01 657.08 / 657.08 Lab / Micro Data Result Diagrams: 01/24/21 05:05 01/24/21 05:05 Labs: Laboratory Results - last 24 hr 01/23/21 19:12: WBC 8.0, RBC 5.79, Hgb 17.3 H, Hct 53.9, MCV 93.1, MCH 29.9, MCHC 32.1, RDW Std Deviation 46.6 H, RDW Coeff of Tami 13.6, Plt Count 186, MPV 10.7, Immature Gran % (Auto) 0.900, Neut % (Auto) 72.5 H, Lymph % (Auto) 15.8 L, [place] % (Auto) 9.6, Eos % (Auto) 0.6, Baso % (Auto) 0.6, Absolute Neuts (auto) 5.8, Absolute Lymphs (auto) 1.27, Nucleated RBC % 0 01/23/21 19:12: Sodium 135 L, Potassium 4.2, Chloride 102, Carbon Dioxide 28.0, Anion Gap 5, BUN 9, Creatinine 0.96, Estim Creat Clear Calc 76.20, Est GFR (MDRD) Af Amer 101, Est GFR (MDRD) Non-Af 84, BUN/Creatinine Ratio 9.3 L, Glucose 97, Calcium 8.7, Total Bilirubin 0.60, AST 20, ALT 25, Alkaline Phosphatase 72, Troponin I High Sens 42.2, Total Protein 7.6, Albumin 3.7, Globulin 3.9, Albumin/Globulin Ratio 0.9 01/23/21 19:12: B-Natriuretic Peptide 67.1 01/23/21 19:12: Magnesium 1.8 01/23/21 21:50: Troponin I High Sens 46.6 01/23/21 21:50: Procalcitonin 0.09 01/24/21 01:35: Troponin I High Sens 61.7 01/24/21 05:05: WBC 5.8, RBC 5.54, Hgb 16.7 H, Hct 51.8, MCV 93.5, MCH 30.1, MCHC 32.2, RDW Std Deviation 46.7 H, RDW Coeff of [place] 13.5, Plt Count 175, MPV 11.1, Immature Gran % (Auto) 0.500, Neut % (Auto) 85.1 H, Lymph % (Auto) 12.0 L, [place] % (Auto) 1.7, Eos % (Auto) 0.2, Baso % (Auto) 0.5, Absolute Neuts (auto) 5.0, Absolute Lymphs (auto) 0.70 L, Nucleated RBC % 0, Differential Comment SCANNED 01/24/21 05:05: Sodium 132 L, Potassium 5.1, Chloride 101, Carbon Dioxide 28.0, Anion Gap 3 L, BUN 11, Creatinine 1.06, Estim Creat Clear Calc 69.01, Est GFR (MDRD) Af Amer 91, Est GFR (MDRD) Non-Af 75, BUN/Creatinine Ratio 10.4, Glucose 150 H, Calcium 8.3 L, Total Bilirubin 0.70, AST 32, ALT 25, Alkaline Phosphatase 65, Total Protein 7.3, Albumin 3.2, Globulin 4.1, Albumin/Globulin Ratio 0.8 L, Triglycerides 116, Cholesterol 156, LDL Cholesterol 104, VLDL Cholesterol 23, HDL Cholesterol 29 L, TSH 0.32 L Micro: Microbiology 01/23/21 22:10 Mucosa - Nasopharyngeal Respiratory Panel (PCR) - Final Parainfluenza 3 01/23/21 19:12 Mucosa - Nasopharyngeal SARS-CoV-2 Antigen (Rapid) - Final ABG Data ABG results: ABG 01/23/21 22:02 Specimen Type ART Sample Site R Radial pH 7.38 Bicarbonate Actual 24.6 Total CO2 26 Base Excess -1 O2 Saturation 98 O2 % 28 ABG pCO2 42.0 ABG pO2 108 H Darrell Test Negative O2 Delivery Device Cannula Cardiology Labs/Tests 01/23/21 19:12: WBC 8.0, RBC 5.79, Hgb 17.3 H, Hct 53.9, MCV 93.1, MCH 29.9, MCHC 32.1, Plt Count 186, MPV 10.7, Immature Gran % (Auto) 0.900, Neut % (Auto) 72.5 H, Lymph % (Auto) 15.8 L, [place] % (Auto) 9.6, Eos % (Auto) 0.6, Baso % (Auto) 0.6, Absolute Neuts (auto) 5.8, Nucleated RBC % 0 01/23/21 19:12: Sodium 135 L, Potassium 4.2, Chloride 102, Carbon Dioxide 28.0, Anion Gap 5, BUN 9, Creatinine 0.96, Est GFR (MDRD) Af Amer 101, Est GFR (MDRD) Non-Af 84, BUN/Creatinine Ratio 9.3 L, Glucose 97, Calcium 8.7, Total Bilirubin 0.60 01/23/21 19:12: B-Natriuretic Peptide 67.1 01/23/21 19:12: Magnesium 1.8 01/23/21 22:02: pH 7.38, Bicarbonate Actual 24.6, Base Excess -1, O2 Saturation 98, ABG pCO2 42.0, ABG pO2 108 H, Darrell Test Negative 01/24/21 05:05: WBC 5.8, RBC 5.54, Hgb 16.7 H, Hct 51.8, MCV 93.5, MCH 30.1, MCHC 32.2, Plt Count 175, MPV 11.1, Immature Gran % (Auto) 0.500, Neut % (Auto) 85.1 H, Lymph % (Auto) 12.0 L, [place] % (Auto) 1.7, Eos % (Auto) 0.2, Baso % (Aut o) 0.5, Absolute Neuts (auto) 5.0, Nucleated RBC % 0 01/24/21 05:05: Sodium 132 L, Potassium 5.1, Chloride 101, Carbon Dioxide 28.0, Anion Gap 3 L, BUN 11, Creatinine 1.06, Est GFR (MDRD) Af Amer 91, Est GFR (MDRD) Non-Af 75, BUN/Creatinine Ratio 10.4, Glucose 150 H, Calcium 8.3 L, Total Bilirubin 0.70, Triglycerides 116, Cholesterol 156, LDL Cholesterol 104, VLDL Cholesterol 23, HDL Cholesterol 29 L Rhythm: EKG: Echocardiogram: 04-01-2019 Interpretation Summary Severe segmental systolic dysfunction (see wall motion). The estimated ejection fraction is 20 %. Moderate concentric left ventricular hypertrophy. The left atrium is moderately enlarged. The right atrium is mildly enlarged. There is mild mitral annular calcification. Extension of the mitral annular calcification onto the posterior mitral valve leaflet. Trivial mitral valve insufficiency. Mild tricuspid valve insufficiency. Trivial eccentric pulmonic valve insufficiency. Right ventricular systolic pressure estimated to be 53 mmHg. Unable to assess diastolic dysfunction. Echocardiogram: 05-14-2020 The study was technically difficult. Contrast injection was performed. Mildly dilated left ventricle. Severe segmental systolic dysfunction (see wall motion). The estimated ejection fraction is 20 %. The left atrium is moderately enlarged. The right atrium is moderately enlarged. There is mild mitral annular calcification. Extension of the mitral annular calcification onto the posterior mitral valve leaflet. Trivial mitral valve insufficiency. Trivial tricuspid valve insufficiency. Trivial pulmonic valve insufficiency. Trivial pericardial effusion. There are no echocardiographic indications of cardiac tamponade. Unable to estimate RV systolic pressure/pulmonary artery pressure due to technically difficult study. Unable to assess diastolic dysfunction. EXERCISE TOLERANCE TEST: 08-05-2014 The patient underwent pharmacologic (regadenoson) evaluation with a peak heart rate of 99 beats per minute (60% predicted maximum heart rate) and a peak blood pressure of 118/77 mmHg. The baseline ECG demonstrated atrial fibrillation. The peak pharmacologic ECG demonstrated continued atrial fibrillation with no obvious ECG changes. There were no additional cardiac dysrhythmias pretest, during pharmacologic infusion, or recovery. There was no report of chest discomfort during pharmacologic infusion or recovery. The examination was discontinued secondary to completion of protocol. IMPRESSION: 1. Pharmacologic (regadenoson) evaluation. 2. Peak pharmacologic ECG with continued atrial fibrillation with no obvious ECG changes. 3. Nuclear images pending. MYOCARDIAL PERFUSION IMAGING STUDY: TECHNIQUE: The patient was injected with 15.0 mCi of Tc99m Cardiolite and subsequently rest SPECT Cardiolite nuclear imaging was obtained in the horizontal long, vertical long, and short axes views. The patient underwent pharmacologic (regadenoson) evaluation with a peak heart rate of 99 beats per minute (60% predicted maximum heart rate) with a peak blood pressure of 118/77 mmHg. The patient was injected with 44.7 mCi of Tc99m Cardiolite and subsequently stress SPECT Cardiolite nuclear imaging was obtained in the horizontal long, vertical long, and short axes views. A gated Cardiolite study at peak stress was obtained. INTERPRETATION: Rest and stress SPECT Cardiolite nuclear imaging demonstrate, with respect to the raw images, an element of body motion during image acquisition. They also demonstrate an area of diminished myocardial perfusion/tracer uptake in portions of the basal inferoseptal to basal inferior segments. Status post stress there is also notation of diminished tracer uptake in the mid inferior segments. Both rest and stress SPECT Cardiolite nuclear imaging also demonstrate a small area of diminished tracer uptake in the inferoapical segments. There are similar type findings on the resting and stress polar map images. There is end systolic thickening and brightening. The gated Cardiolite study demonstrates myocardial thickening and inward wall motion. The reported LVEF was 49%. The aforementioned changes appear compatible with an area of previous myocardial injury/infarction with periinfarct related myocardial ischemia especially i nvolving the midinferior segments. IMPRESSION: 1. Rest and stress SPECT Cardiolite nuclear imaging demonstrate myocardial perfusion changes appearing compatible with an area of previous myocardial i njury/infarction with periinfarct related myocardial ischemia especially involving the mid inferior segments. 2. The gated Cardiolite study reports an LVEF of 49%. Cardiac catheterization: 04-02-2019 CONCLUSIONS Elevated Left Ventricular End Diastolic Pressure Segmented LV systolic dysfunction- Moderate LVEF: by LV gram 30 % [place] Multivessel CAD RECOMMENDATIONS Risk factor modification Medical therapy Referred for immediate PCI DESCRIPTION OF PROCEDURE The patient arrived to the procedure lab. The risks and benefits of the procedure as well as a full description of our services here and current unavailability of surgical backup were fully explained to the patient and/or their significant other prior to the catheterization. The Timeout was completed, verifying the correct patient and procedure. The patient's procedural site was prepped and draped in the usual fashion. Local anesthetic was given subcutaneously to right radial region with Lidocaine 2%. Using a modified Seldinger technique, arterial access was obtained via the right radial artery, a 6Fr sheath was inserted. Right Coronary Artery selective angiography was then performed in multiple views using a 5 Fr. 4.0 [place] catheter. Left Coronary Artery selective angiography was performed in multiple views using a 5 Fr. 4.0 [place] catheter. Left Ventriculography was performed in HA projection using a 5 Fr. [place] catheter. LV to AO pullback pressures were then recorded.The arterial sheath was pulled and a TR Band was applied for hemostasis 11cc air inserted CORONARY ANGIOGRAPHY DOMINANCE: Right Dominant LEFT HEART ASSESSMENT Left Ventricular Ejection Fraction: by LV Gram 30 % Anterior Hypokinesis. Apical Akinesis Elevated Left Ventricular End Diastolic Pressure LVEDP: 28 mmHg LEFT MAIN: Angiographically normal LEFT ANTERIOR DESCENDING ARTERY: Mild luminal irregularities MID LAD: subtotally occluded with the mid to distal vessel filling late CIRCUMFLEX ARTERY: Mild luminal irregularities PROX CIRC: Previously placed stent is patent DISTAL CIRC: eccentric: somewhat hazy: 50 % Stenosis RIGHT CORONARY ARTERY: PROX RCA: Previously placed stent is patent MID RCA: Previously placed stent is patent VALVE FINDINGS: Normal Aortic Valve function Normal Mitral Valve function AORTIC ROOT: Angiographically normal PCI: 04-02-2019 CONCLUSIONS Successful PCI with Drug eluting stent and PTCA to the mLAD Radiography Diagnostic Testing: Radiology Impression Chest X-Ray 01/23/21 19:44 IMPRESSION: 1. Moderate cardiomegaly, mild pulmonary edema. Electronically Signed: Rosey Alvarez MD at 20:56 EDT Tel , Service support ,
[2021-01-24] MEDS: SACUBITRIL/VALSARTAN 24/26 MG TABLET 1 EACH PO ×2 (11:03→21:01)
--- NOTE | 2021-01-24 11:39 | PCM.PN.HOSP ---
Documented by User: Vielka Ontiveros NP, PAINTER ASSISTANT-C 01/24/21 12:00 Subjective Subjective Patient seen and examined. Reports improvement in breathing. Requesting Covid vaccine. Heart rate controlled at this time. Objective Data Objective Data Vital Signs: Vital Signs Temp Pulse Resp BP Pulse Ox 98.3 F 80 20 H 110/74 94 01/24/21 09:26 01/24/21 10:18 01/24/21 10:18 01/24/21 10:00 01/24/21 10:18 Oxygen Flow Rate (L/min) 2 Oxygen Delivery Method Nasal Cannula Weight: 268 lb 1.314 oz Body Mass Index (BMI) 41.1 Intake & Output: Intake and Output for Last 24 Hours 01/22/21 01/23/21 01/24/21 23:59 23:59 23:59 Intake Total 1278.99 / 1278.99 923.78 / 923.78 Output Total 1350 / 1350 650 / 650 Balance -71.01 / -71.01 273.78 / 273.78 Medical Nutrition Assessment Dietitian: Nutrition Therapy Diagnosis Start: 01/24/21 10:49 Freq: Status: Active Protocol: Document 01/24/21 11:04 SLA (Rec: 01/24/21 11:04 SLA [id number]) Nutrition Malnutrition Evidence of Malnutrition Exists No Clinical Problem Altered Nutrient-Related Laboratory Values Etiology related to steroid administration Signs/Symptoms as evidenced by gluc 150 Status Active Problem Recommendation Dietitian Recommendations/Changes Will change diet to Cardiac/ Sodium restricted diet - monitor need for fluid restriction / consistent carbohydrates Lab / Micro Data Result Diagrams: 01/24/21 05:05 01/24/21 05:05 Labs: Laboratory Results - last 24 hr 01/23/21 19:12: WBC 8.0, RBC 5.79, Hgb 17.3 H, Hct 53.9, MCV 93.1, MCH 29.9, MCHC 32.1, RDW Std Deviation 46.6 H, RDW Coeff of Tami 13.6, Plt Count 186, MPV 10.7, Immature Gran % (Auto) 0.900, Neut % (Auto) 72.5 H, Lymph % (Auto) 15.8 L, Harding % (Auto) 9.6, Eos % (Auto) 0.6, Baso % (Auto) 0.6, Absolute Neuts (auto) 5.8, Absolute Lymphs (auto) 1.27, Nucleated RBC % 0 01/23/21 19:12: Sodium 135 L, Potassium 4.2, Chloride 102, Carbon Dioxide 28.0, Anion Gap 5, BUN 9, Creatinine 0.96, Estim Creat Clear Calc 76.20, Est GFR (MDRD) Af Amer 101, Est GFR (MDRD) Non-Af 84, BUN/Creatinine Ratio 9.3 L, Glucose 97, Calcium 8.7, Total Bilirubin 0.60, AST 20, ALT 25, Alkaline Phosphatase 72, Troponin I High Sens 42.2, Total Protein 7.6, Albumin 3.7, Globulin 3.9, Albumin/Globulin Ratio 0.9 01/23/21 19:12: B-Natriuretic Peptide 67.1 01/23/21 19:12: Magnesium 1.8 01/23/21 21:50: Troponin I High Sens 46.6 01/23/21 21:50: Procalcitonin 0.09 01/24/21 01:35: Troponin I High Sens 61.7 01/24/21 05:05: WBC 5.8, RBC 5.54, Hgb 16.7 H, Hct 51.8, MCV 93.5, MCH 30.1, MCHC 32.2, RDW Std Deviation 46.7 H, RDW Coeff of Tami 13.5, Plt Count 175, MPV 11.1, Immature Gran % (Auto) 0.500, Neut % (Auto) 85.1 H, Lymph % (Auto) 12.0 L, Harding % (Auto) 1.7, Eos % (Auto) 0.2, Baso % (Auto) 0.5, Absolute Neuts (auto) 5.0, Absolute Lymphs (auto) 0.70 L, Nucleated RBC % 0, Differential Comment SCANNED 01/24/21 05:05: Sodium 132 L, Potassium 5.1, Chloride 101, Carbon Dioxide 28.0, Anion Gap 3 L, BUN 11, Creatinine 1.06, Estim Creat Clear Calc 69.01, Est GFR (MDRD) Af Amer 91, Est GFR (MDRD) Non-Af 75, BUN/Creatinine Ratio 10.4, Glucose 150 H, Calcium 8.3 L, Total Bilirubin 0.70, AST 32, ALT 25, Alkaline Phosphatase 65, Total Protein 7.3, Albumin 3.2, Globulin 4.1, Albumin/Globulin Ratio 0.8 L, Triglycerides 116, Cholesterol 156, LDL Cholesterol 104, VLDL Cholesterol 23, HDL Cholesterol 29 L, TSH 0.32 L Micro: Microbiology 01/23/21 22:10 Mucosa - Nasopharyngeal Respiratory Panel (PCR) - Final Parainfluenza 3 01/23/21 19:12 Mucosa - Nasopharyngeal SARS-CoV-2 Antigen (Rapid) - Final ABG Data ABG results: ABG 01/23/21 22:02 Specimen Type ART Sample Site R Radial pH 7.38 Bicarbonate Actual 24.6 Total CO2 26 Base Excess -1 O2 Saturation 98 O2 % 28 ABG pCO2 42.0 ABG pO2 108 H Darrell Test Negative O2 Delivery Device Cannula Radiography Diagnostic Testing: Radiology Impression Chest X-Ray 01/23/21 19:44 IMPRESSION: 1. Moderate cardiomegaly, mild pulmonary edema. Electronically Signed: Rosey Alvarze MD at 20:56 EDT Tel , Service support , Physical Exam Const alert, oriented x3 and no apparent distress Orientation / Consciousness: awake, oriented to person, oriented to place and oriented to time HEENT normocephalic and moist oral mucous membranes Eyes PERRL, EOMs intact bilaterally and conjunctivae normal Neck no lymphadenopathy Resp normal respiratory effort and clear to auscultation bilaterally Cardio no murmurs Cardio Narrative: Atrial fibrillation, rate controlled Peripheral Pulses: pulses 2+ throughout GI normal to inspection, nondistended, normoactive bowel sounds, non-tender and non-distended Extremity normal to inspection Skin no rashes or lesions noted Lesions: no lesions Rashes: no rashes Trauma: no lacerations or abrasions Neuro CN's II-XII intact bilaterally, no focal motor deficits, no sensory deficits noted and deep tendon reflexes 2+ bilaterally Psych mental status grossly normal and affect normal Assessment & Plan Assessment/Plan (1) Atrial fibrillation with RVR: PLAN: 1. Persistent atrial fibrillation with RVR-continue Coreg, Xarelto. On amiodarone drip. Cardiology following. Echo pending. 2. Chronic heart failure with reduced ejection fraction/cardiomyopathy-previous echocardiogram April 2020 demonstrated an EF of 20%. Repeat echo pending. Continue home Lasix regimen. 3. Acute hypoxic respiratory insufficiency secondary to exacerbation of COPD as a result of parainfluenza-IV Solu-Medrol. Albuterol DuoNeb aerosols. Will need walking pulse ox prior to discharge. Continue supplement oxygen to maintain O2 at above 90%. 4. Medication noncompliance-patient has a history of this as well. Home medications resumed. Social work/case management consult for discharge planning, home resources. 5. CAD with history of PCI-continue aspirin, Xarelto, Coreg, Entresto, statin. 6. Hypertension-stable, continue Coreg, Lasix, Entresto. 7. Hyperlipidemia-continue statin. 8. Tobacco dependence-encouraged cessation. 9. Morbid obesity-encouraged diet/lifestyle modifications. DVT prophylaxis-Xarelto This patient was seen by JEREMY Agrawal under the supervision of Dr. Quintanilla. Documented by User: Dr. Domenic Quintanilla MD 01/24/21 15:09 Subjective Subjective Patient was admitted yesterday with shortness of breath, cough, congestion, mid to lower extremity edema ongoing for about 5 to 6 months. Patient is noncompliant to medication and doctor's appointment. He has history of coronary artery status post stents, heart failure, chronic A. fib. He was admitted with A. fib with RVR currently heart rate is controlled on medication. quality assurance monitor body shows A. fib. Overall he feels better. Objective Data Lab / Micro Data Result Diagrams: 01/24/21 05:05 01/24/21 05:05 Physical Exam Narrative On physical exam General: Alert, Oriented x3, Cooperative HEENT: Atraumatic, PERRLA, EOMI, Normocephalic Oral: No Gingival or Mucosal Lesions/ Ulcerations Neck: Supple, No JVD, Negative Carotid Bruits Lungs: Air entry diminished in bilateral lung bases. Bilateral rhonchi and wheezing present. Cardiovascular: Irregular rate and rhythm, Normal S1, Normal S2, No murmurs Abdomen: Bowel Sounds Present, Soft, Non Tender, Non-Distended : No renal angle tenderness. No suprapubic tenderness. Extremities: Bilateral below-knee pitting edema, Capillary Refill Less than 3 Seconds Skin: No rashes, No breakdown Musculoskeletal: No Tenderness to Palpation of Joints or Extremities Neurological: Cranial nerves II-XII grossly intact, Deep Tendon Reflexes 2+/4 and Symmetrical, Neuro grossly intact Psych/Mental Status: Normal Affect, Appropriate. Assessment & Plan Assessment/Plan (1) Atrial fibrillation with RVR: PLAN: This patient was seen in conjunction with Vielka VALDEZ. I have independently interviewed and examined the patient and reviewed pertinent history, examination findings, laboratory and plan of management. I have reviewed the note and agree with the documented findings with the few additional points. In brief, patient is 65-year-old gentleman admitted with shortness of breath, cough, chest congestion bilateral leg edema A. fib with RVR. Patient heart rate has been controlled on amiodarone drip, carvedilol 12.5 mg twice daily. Patient is also on digoxin. Patient also has coronary artery disease status post stent and chronic systolic heart failure. Previous echo in April 2020 reported EF 20%. Repeat echo is ordered. Patient is on home dose of take an additional 40 mg dose at 5 PM for increased leg swelling or weight gain 5 pounds in 1 week., Entresto and pravastatin. Fasting profile HDL 29, LDL 94. Patient also has acute hypoxic respiratory insufficiency due to COPD exacerbation due to parainfluenza virus bronchitis: On medication as mentioned above Other chronic comorbidities as mentioned above I have discussed my assessment with Vielka VALDEZ and orders have been reviewed. Total time of the visit including total time spent in counseling or coordination of care, (more than 50% of the total time, spent in obtaining medical information from nurses and other ancillary care providers,explaining to the patient about labs, imaging, diagnosis and management), discussion with [employer] web[employer] commerce consultant, review of labs and imaging is 30 minutes. Patient can have Covid vaccine after resolution of COPD exacerbation from parainfluenza viral bronchitis Charges/Coding Visit Charges Inpatient E&M: 57480 Subs Hosp L3
[2021-01-24] MEDS: Digoxin 250 MCG/ML Ampul IV (12:10)
[2021-01-24 12:31] LABS: Free T3 2.9 pg/mL (2.18-3.98); T4 Free Direct 0.98 ng/dL (0.76-1.46)
[2021-01-24] MEDS: Pravastatin 80 MG Tablet PO (21:01)
[2021-01-25] VITALS (10 sets, daily range): BP systolic 111–116; BP diastolic 57–69; PULSE 68–96; RESP 16–20; TEMP 36.4–36.7; O2SAT 88–96
--- NOTE | 2021-01-25 02:07 | CPS ---
Patient requested to be taken off BiPAP at this time. RN aware.
[2021-01-25] MEDS: 0.9% Saline Lock 10 ML Syringe IV (05:37)
[2021-01-25 05:56] LABS: Anion Gap 3 (5-15); BUN 17 mg/dL (7-18); BUN/Creat Ratio 15.3 RATIO (10-20); Calcium,Total 8.9 mg/dL (8.5-10.1); Chloride 101 mmol/L (98-107); Creatinine, Serum 1.11 mg/dL (0.70-1.30); EST Glomerular Filtration Rate 71 mL/min (>60); Est Glom Filt Rate - Afr Amer 86 mL/min (>60); Glucose 150 mg/dL (74-106); Potassium 4.8 mmol/L (3.5-5.1); Sodium Level 136 mmol/L (136-145)
[2021-01-25] MEDS: Ipratropium/Albuterol Sulfate 3 ML AMPUL.NEB INHALATION ×2 (06:54→11:11)
--- NOTE | 2021-01-25 10:45 | CASEMGMT ---
CHRISTINE GALLEGOS Face to Face with patient for initial transition planning/care coordination assessment. CHRISTINE GALLEGOS introduced self and role at [facility]. Patient lying in bed, alert and oriented. Patient willing to participate in assessment and is able to answer all questions appropriately. Care providers, pharmacy, and demographics verified. Patient wishes to discharge home, denies need for home health at this time. Patient states he has no further needs or concerns at this time. CM to follow for discharge planning needs that may arise. PCP: Jessica Specialists: none [facility]erred [facility]acy: [facility] Insurance: [employer] Prescription Benefit: yes Living Will/HPOA: none LNOK: sister Living Arrangements: Patient lives with sister on her couch in a single story home with 2 steps to enter. Patient states he is independent at home. Transportation: sister but doesn't like to ask her for rides so sometimes misses appts. DME/HHC: Patient denies DME or previous HHC RN EL updated SW regarding patient wanting housing resources as he thinks he should move out but cannot afford his own place. Also requested transportation resources as well. Disposition Plan: Patient to discharge home with family support and follow-up plans in place. Anni SPARKS, RN, CM
[2021-01-25] MEDS: SACUBITRIL/VALSARTAN 24/26 MG TABLET 1 EACH PO (10:47)
[2021-01-25] MEDS: Carvedilol 12.5 MG Tablet PO (10:47)
[2021-01-25] MEDS: Potassium Chloride Oral Tablet 20 MEQ PO (10:47)
[2021-01-25] MEDS: Aspirin E.C. 81 MG Tablet PO (10:47)
[2021-01-25] MEDS: Digoxin 250 MCG Tablet PO (10:47)
[2021-01-25] MEDS: Rivaroxaban 20 MG Tablet PO (10:48)
[2021-01-25] MEDS: Furosemide 40 MG Tablet PO (10:48)
--- NOTE | 2021-01-25 11:11 | PCM.PN.CARD ---
Subjective Subjective The patient states that he feels better overall. He believes his breathing has improved. He denies ongoing episodes of chest discomfort. He states he cannot sense his heart rate at this time. Objective Data Vital Signs: Vital Signs Temp Pulse Resp BP Pulse Ox 97.9 F 96 18 116/69 95 01/25/21 10:43 01/25/21 10:43 01/25/21 10:43 01/25/21 10:43 01/25/21 10:43 Oxygen Flow Rate (L/min) 2 Oxygen Delivery Method Nasal Cannula Weight: 266 lb 8.622 oz Body Mass Index (BMI) 41.1 Intake & Output: Intake and Output for Last 24 Hours 01/23/21 01/24/21 01/25/21 23:59 23:59 23:59 Intake Total 1278.99 / 1278.99 1521.67 / 1521.67 200 / 200 Output Total 1350 / 1350 2200 / 2200 350 / 350 Balance -71.01 / -71.01 -678.33 / -678.33 -150 / -150 Lab / Micro Data Result Diagrams: 01/24/21 05:05 01/25/21 05:22 Labs: Laboratory Results - last 24 hr 01/24/21 01:35: Free T4 0.98, Free T3 pg/dL 2.9 01/25/21 05:22: Sodium 136, Potassium 4.8, Chloride 101, Carbon Dioxide 32.0, Anion Gap 3 L, BUN 17, Creatinine 1.11, Estim Creat Clear Calc 65.90, Est GFR (MDRD) Af Amer 86, Est GFR (MDRD) Non-Af 71, BUN/Creatinine Ratio 15.3, Glucose 150 H, Calcium 8.9 Cardiology Labs/Tests 01/25/21 05:22: Sodium 136, Potassium 4.8, Chloride 101, Carbon Dioxide 32.0, Anion Gap 3 L, BUN 17, Creatinine 1.11, Est GFR (MDRD) Af Amer 86, Est GFR (MDRD) Non-Af 71, BUN/Creatinine Ratio 15.3, Glucose 150 H, Calcium 8.9 Rhythm: Atrial fibrillation Physical Exam Narrative The patient is awake and alert and in no acute distress. Const alert, oriented x3 and no apparent distress Orientation / Consciousness: awake HEENT normocephalic, head/scalp atraumatic and hearing grossly normal bilaterally Eyes PERRL, EOMs intact bilaterally and conjunctivae normal Neck full ROM, supple and no JVD Chest inspection of chest normal Resp Auscultation: wheezes expiratory wheezes and throughout Cardio Rhythm: abnormal rhythm irregularly irregular Heart Sounds: S1 normal and S2 normal GI normal to inspection, nondistended, normoactive bowel sounds Extremity General Extremity: edema bilateral lower extremity Details: mild Skin no rashes or lesions noted Neuro oriented x3, moves all extremities, no focal motor deficits and no sensory deficits noted Psych mental status grossly normal Assessment & Plan Assessment/Plan (1) Atrial fibrillation with RVR: PLAN: At the present time the patient appears to be in atrial fibrillation/flutter with RVR. He has been treated medically. His ventricular rate has come under better control. He will need continued rate control therapy and anticoagulant therapy. (2) Atherosclerotic heart disease of [place] coronary artery without angina pectoris: QUALIFIERS: [place] vs. transplanted heart: [place] heart Qualified Code(s): I25.10 - Atherosclerotic heart disease of [place] coronary artery without angina pectoris PLAN: He has a history of CAD status post PCI. He is without acute coronary syndrome symptoms at this time. His troponin I levels are negative. He will need to be restarted on his medications. (3) Presence of stent in coronary artery: PLAN: His previous PCI history is reviewed. Need to be restarted on medical therapy. (4) Cardiomyopathy: QUALIFIERS: Cardiomyopathy type: unspecified Qualified Code(s): I42.9 - Cardiomyopathy, unspecified PLAN: He has a history of diminished LV systolic function. He has not been able to remain on his medications which theoretically may help his overall LV systolic function improved. His LV function will be reassessed with an echocardiogram. (5) Hyperlipidemia: QUALIFIERS: Hyperlipidemia type: unspecified Qualified Code(s): E78.5 - Hyperlipidemia, unspecified PLAN: He has a history of hyperlipidemia. He will need to restart his medical management. (6) Essential hypertension: PLAN: His blood pressure can be followed with his medicines adjusted accordingly. (7) Noncompliance with medication regimen: PLAN: Unfortunately he has a history of noncompliance with his medications. This is not the first time he has been without his medications for period of time. Perhaps social sciences department chair can evaluate the patient with respect to any possible assistance he may be able to receive to help him maintain his medications in order to keep his cardiovascular symptoms/status stable, allow his LV function and opportunity to improve, and minimize repeat hospitalizations.
--- NOTE | 2021-01-25 11:41 | PCM.DC ---
Discharge Instructions Diet Discharge Diet: Low fat / Low cholesterol Activity Discharge Activity: Return to Normal Activity Dressing / Incision Call your doctor if you observe: Shortness of breath, Dizziness and Chest pain Follow Up Care Test Results: Test results from this visit will be discussed in further detail at your follow-up appointment, if applicable. Discharge Plan Admission Admit Date/Time: 01/23/21 20:45 Primary Reason for Your Visit: Atrial fibrillation Attending Provider: Domenic Quintanilla Primary Care Provider: Maicol Lopez Consulting Providers: Andrew Anaya Discharge Orders/Prescriptions Prescriptions: New digoxin 250 mcg (0.25 mg) Tablet 250 mcg PO DAILY Qty: 30 RF: 1 prednisone 10 mg tablet See Taper mg PO DAILY Qty: 30 RF: 0 albuterol sulfate 90 mcg/actuation HFA aerosol inhaler 2 puff inhalation Q6H PRN (Reason: shortness of breath or wheezing) Qty: 6.7 RF: 0 Continued Entresto 24-26 mg tablet 1 tab PO BID Qty: 60 RF: 11 aspirin 81 mg tablet,delayed release (DR/EC) 81 mg PO DAILY@0800 Qty: 30 RF: 12 carvedilol 12.5 mg tablet 12.5 mg PO BID Qty: 60 RF: 12 furosemide 40 mg tablet 40 mg PO DAILY Qty: 30 RF: 12 nitroglycerin 0.4 mg tablet, sublingual 0.4 mg SUBLINGUAL Q5-15M PRN (Reason: chest pain) Qty: 25 RF: 1 potassium chloride 20 mEq tablet extended release 20 meq PO DAILY Qty: 30 RF: 12 pravastatin 80 mg tablet 80 mg PO QHS Qty: 30 RF: 12 rivaroxaban 20 mg tablet 20 mg PO DAILY Qty: 30 RF: 12 Referrals / Follow Up: Maicol Lopez DO [Primary Care Provider] - 02/02/21 2:30 pm Jessica Amaral NP, SENIOR MARKETING SPECIALIST-C [Nurse Practitioner] - Within 2 Weeks (Office should call you to schedule appt, if you don't hear from by 01/26/2021 please call them to schedule. ) Karolina Hernandez, PA [PHYSICIAN HIDE HOUSE SUPERVISOR] - Within 2 Weeks (Office should call you to schedule appt, if you don't hear from them by 01/26/2021 please call them to schedule. ) Disposition Disposition (needs filled in before D/C Order can be placed): Home, Self Care
--- NOTE | 2021-01-25 12:39 | CASEMGMT ---
Social Work Consult: Transportation and housing transportation issues. Referral received from: CHRISTINE GALLEGOS Met with patient in room. Introduced self and socially responsible investment adviser role. Patient agreeable to speak with this socially responsible investment adviser. Patient reports to be living with sister for the past 2 years and sleeping on the couch. Patient reports to have had own apartment in the past but my life feel apart after my . Patient reports to have been to patient spouse for 32years and that patient spouse has been for the last few years. Patient reports to be familiar with community resources just hard to get motivated. Patient reports history of counseling through [facility]. Patient reports to have had a ed case manager in the past. Patient verbally reports plan to follow up with [facility] or the counseling center. Patient reports to have transportation to home from the hospital and to have transportation from patient sister it is just limited. Patient familiar with transportation program and how to apply. Active support and listening provided to patient. Patient thanked this socially responsible investment adviser. This socially responsible investment adviser provided patient with community resources. Patient reports to have access to medications but to have just not be taking them. This socially responsible investment adviser provided encouraged. Patient with no further questions. Carlos GUERRERO, LISANDRA
--- NOTE | 2021-01-25 12:56 | PCM.DC.SUM ---
Documented by User: Vielka Ontiveros NP, HEPATOLOGY PHYSICIAN-C 01/25/21 13:46 Providers Date of Admission: 01/23/21 Date of Discharge: 01/25/21 Primary Care Physician: Dr. Maicol Lopez DO Consultations 01/23/21 21:38 Consult: Cardiology Routine Consulting Provider: Andrew Anaya Reason for Consult: PAF with RVR EMERGENT Consult: No MD Notified: Yes Date Notified: 01/23/21 Time Notified: 21:38 Method of Notification: cortext Reason For Visit: PAF W RVR Diagnosis Discharge Diagnosis (1) Atrial fibrillation with RVR: Status: Acute Code(s): I48.91 - Unspecified atrial fibrillation (2) Atherosclerotic heart disease of [place] coronary artery without angina pectoris: Status: Chronic Code(s): I25.10 - Atherosclerotic heart disease of [place] coronary artery without angina pectoris Qualifiers: [place] vs. transplanted heart: [place] heart Qualified Code(s): I25.10 - Atherosclerotic heart disease of [place] coronary artery without angina pectoris (3) Presence of stent in coronary artery: Status: Chronic Code(s): Z95.5 - Presence of coronary angioplasty implant and graft (4) Cardiomyopathy: Status: Chronic Code(s): I42.9 - Cardiomyopathy, unspecified Qualifiers: Cardiomyopathy type: unspecified Qualified Code(s): I42.9 - Cardiomyopathy, unspecified (5) Hyperlipidemia: Status: Chronic Code(s): E78.5 - Hyperlipidemia, unspecified Qualifiers: Hyperlipidemia type: unspecified Qualified Code(s): E78.5 - Hyperlipidemia, unspecified (6) Essential hypertension: Status: Chronic Code(s): I10 - Essential (primary) hypertension (7) Noncompliance with medication regimen: Status: Acute Code(s): Z91.14 - Patient's other noncompliance with medication regimen Medications at Discharge Home Medications aspirin 81 mg tablet,delayed release 81 mg PO DAILY@0800 #30 tab 04/22/20 carvedilol 12.5 mg tablet 12.5 mg PO BID #60 tab 04/22/20 furosemide 40 mg tablet 40 mg PO DAILY #30 tab 04/22/20 nitroglycerin 0.4 mg sublingual tablet 0.4 mg SUBLINGUAL Q5-15M PRN #25 tab 04/22/20 potassium chloride 20 mEq tablet,extended release 20 meq PO DAILY #30 tab 10/28/20 pravastatin 80 mg tablet 80 mg PO QHS #30 tab 04/22/20 rivaroxaban 20 mg tablet 20 mg PO DAILY #30 tab 04/22/20 sacubitril 24 mg-valsartan 26 mg tablet 1 tab PO BID #60 tab 06/01/20 albuterol sulfate 2 puff INHALATION Q6H PRN #6.7 g 01/25/21 digoxin 250 mcg PO DAILY #30 tab 01/25/21 prednisone See Taper PO DAILY #30 tab 01/25/21 Hospital Course Operations None Procedures 2-D Echocardiogram Summary of Care Provided Minutes Spent on Discharge: 35 Hospital Course: Patient is a 65-year-old male admitted 01/23/2021 due to dyspnea. 1. Persistent atrial fibrillation with RVR-continue Coreg, Xarelto. Cardiology consulted during admission. Amiodarone drip completed. Initiated on digoxin. Rate controlled. Follow-up with cardiology in 2 weeks. Will need repeat BMP and digoxin level which can be arranged by cardiology/PCP. 2. Chronic heart failure with reduced ejection fraction/cardiomyopathy-previous echocardiogram April 2020 demonstrated an EF of 20%. Repeat echocardiogram completed, report pending and will be reviewed prior to discharge. Continue home Lasix regimen. 3. Acute hypoxic respiratory insufficiency secondary to exacerbation of COPD as a result of parainfluenza-IV Solu-Medrol during admission. Transition to prednisone taper at discharge. Albuterol inhaler as needed prescribed. Patient will require supplemental oxygen at discharge, 2 L with ambulation. He is ambulatory in the home. Follow-up with pulmonary medicine in 2 weeks. 4. Medication noncompliance-patient has a history of this as well. Home medications resumed. Social work/case management consult for discharge planning, home resources. Patient states he does not have difficulty affording these medications and has them waiting for him at the pharmacy however he has had difficulty taking care of himself due to depression since his . He is amenable to outpatient counseling, resources provided. 5. CAD with history of PCI-continue aspirin, Xarelto, Coreg, Entresto, statin. 6. Hypertension-stable, continue Coreg, Lasix, Entresto. 7. Hyperlipidemia-continue statin. 8. Tobacco dependence-encouraged cessation. 9. Morbid obesity-encouraged diet/lifestyle modifications. Physical Exam Const alert, oriented x3 and no apparent distress Orientation / Consciousness: awake, oriented to person, oriented to place and oriented to time HEENT normocephalic and moist oral mucous membranes Eyes PERRL, EOMs intact bilaterally and conjunctivae normal Neck no lymphadenopathy Resp normal respiratory effort and clear to auscultation bilaterally Cardio no murmurs Cardio Narrative: Atrial fibrillation, rate controlled Peripheral Pulses: pulses 2+ throughout GI normal to inspection, nondistended, normoactive bowel sounds, non-tender and non-distended Extremity normal to inspection Skin no rashes or lesions noted Lesions: no lesions Rashes: no rashes Trauma: no lacerations or abrasions Neuro CN's II-XII intact bilaterally, no focal motor deficits, no sensory deficits noted and deep tendon reflexes 2+ bilaterally Psych mental status grossly normal and affect normal Patient seen and examined prior to discharge. Physical assessment as noted above. Patient is stable for discharge with follow up recommendations as noted above. This patient was seen by JEREMY Agrawal under the supervision of Dr. Quintanilla. Medical Records Data Medical Nutrition Assessment Dietitian: Nutrition Therapy Diagnosis Start: 01/24/21 10:49 Freq: Status: Active Protocol: Document 01/24/21 11:04 SLA (Rec: 01/24/21 11:04 [facility] [id number]) Nutrition Malnutrition Evidence of Malnutrition Exists No Clinical Problem Altered Nutrient-Related Laboratory Values Etiology related to steroid administration Signs/Symptoms as evidenced by gluc 150 Status Active Problem Recommendation Dietitian Recommendations/Changes Will change diet to Cardiac/ Sodium restricted diet - monitor need for fluid restriction / consistent carbohydrates Weight / BMI Weight Weight: 266 lb 8.622 oz Body Mass Index (BMI) 41.1 ABG / Lab / Microbiology Data Result Diagrams: 01/24/21 05:05 01/25/21 05:22 Laboratory: Laboratory Results - last 24 hr 01/25/21 05:22: Sodium 136, Potassium 4.8, Chloride 101, Carbon Dioxide 32.0, Anion Gap 3 L, BUN 17, Creatinine 1.11, Estim Creat Clear Calc 65.90, Est GFR (MDRD) Af Amer 86, Est GFR (MDRD) Non-Af 71, BUN/Creatinine Ratio 15.3, Glucose 150 H, Calcium 8.9 Microbiology: Microbiology 01/23/21 22:10 Mucosa - Nasopharyngeal Respiratory Panel (PCR) - Final Parainfluenza 3 01/23/21 19:12 Mucosa - Nasopharyngeal SARS-CoV-2 Antigen (Rapid) - Final D/C Instructions Discharge Diet: Low fat / Low cholesterol Call your doctor if you observe: Shortness of breath, Dizziness and Chest pain Meaningful Use Info Meaningful Use Diagnoses (Choose all that apply): None applicable Discharge Plan Admission Admit Date/Time: 01/23/21 20:45 Primary Reason for Your Visit: Atrial fibrillation Attending Provider: Domenic Quintanilla Primary Care Provider: Maicol Lopez Consulting Providers: Andrew Anaya Discharge Orders/Prescriptions Prescriptions: New digoxin 250 mcg (0.25 mg) Tablet 250 mcg PO DAILY Qty: 30 RF: 1 prednisone 10 mg tablet See Taper mg PO DAILY Qty: 30 RF: 0 albuterol sulfate 90 mcg/actuation HFA aerosol inhaler 2 puff inhalation Q6H PRN (Reason: shortness of breath or wheezing) Qty: 6.7 RF: 0 Continued Entresto 24-26 mg tablet 1 tab PO BID Qty: 60 RF: 11 aspirin 81 mg tablet,delayed release (DR/EC) 81 mg PO DAILY@0800 Qty: 30 RF: 12 carvedilol 12.5 mg tablet 12.5 mg PO BID Qty: 60 RF: 12 furosemide 40 mg tablet 40 mg PO DAILY Qty: 30 RF: 12 nitroglycerin 0.4 mg tablet, sublingual 0.4 mg SUBLINGUAL Q5-15M PRN (Reason: chest pain) Qty: 25 RF: 1 potassium chloride 20 mEq tablet extended release 20 meq PO DAILY Qty: 30 RF: 12 pravastatin 80 mg tablet 80 mg PO QHS Qty: 30 RF: 12 rivaroxaban 20 mg tablet 20 mg PO DAILY Qty: 30 RF: 12 Referrals / Follow Up: Maicol Lopez DO [Primary Care Provider] - 02/02/21 2:30 pm Jessica Amaral NP, HEPATOLOGY PHYSICIAN-C [Nurse Practitioner] - Within 2 Weeks (Office should call you to schedule appt, if you don't hear from by 01/26/2021 please call them to schedule. ) Karolina Hernandez, PA [PHYSICIAN MARKETING EFFECTIVENESS MANAGER] - Within 2 Weeks (Office should call you to schedule appt, if you don't hear from them by 01/26/2021 please call them to schedule. ) Disposition Disposition (needs filled in before D/C Order can be placed): Home, Self Care Documented by User: Dr. Domenic Quintanilla MD 01/25/21 13:57 Providers Date of Admission: 01/23/21 Reason For Visit: PAF W RVR Medications at Discharge Home Medications aspirin 81 mg tablet,delayed release 81 mg PO DAILY@0800 #30 tab 04/22/20 carvedilol 12.5 mg tablet 12.5 mg PO BID #60 tab 04/22/20 furosemide 40 mg tablet 40 mg PO DAILY #30 tab 04/22/20 nitroglycerin 0.4 mg sublingual tablet 0.4 mg SUBLINGUAL Q5-15M PRN #25 tab 04/22/20 potassium chloride 20 mEq tablet,extended release 20 meq PO DAILY #30 tab 04/22/20 pravastatin 80 mg tablet 80 mg PO QHS #30 tab 04/22/20 rivaroxaban 20 mg tablet 20 mg PO DAILY #30 tab 04/22/20 sacubitril 24 mg-valsartan 26 mg tablet 1 tab PO BID #60 tab 06/01/20 albuterol sulfate 2 puff INHALATION Q6H PRN #6.7 g 01/25/21 digoxin 250 mcg PO DAILY #30 tab 01/25/21 prednisone See Taper PO DAILY #30 tab 01/25/21 Hospital Course Summary of Care Provided Minutes Spent on Discharge: 35 Hospital Course: This patient was seen in conjunction with HEPATOLOGY PHYSICIANVielka. I have independently interviewed and examined the patient and reviewed pertinent history, examination findings, laboratory and plan of management. I have reviewed the note and agree with the documented findings with the few additional points. In brief, patient is 65-year-old gentleman admitted with shortness of breath, cough, chest congestion bilateral leg edema A. fib with RVR. Patient heart rate has been controlled on amiodarone drip, carvedilol 12.5 mg twice daily. Patient is also on digoxin. Patient also has coronary artery disease status post stent and chronic systolic heart failure. Previous echo in April 2020 reported EF 20%. Repeat echo report is pending. Patient is discharged on Lasix, Entresto and pravastatin. Fasting profile HDL 29, LDL 94. Patient also has acute hypoxic respiratory insufficiency due to COPD exacerbation due to parainfluenza virus bronchitis: Patient on bronchodilator inhaler and discharged on tapering dose of prednisone. Advised to get Covid vaccine after 1 week when shortness of breath and wheezing is better. Other chronic comorbidities as mentioned above I have discussed my assessment with HEPATOLOGY PHYSICIANVielka and orders have been reviewed. Discharge medication reconciliation done. Discharge follow-up instructions completed. Discharge process discussed with the patient and all questions were answered to patient's satisfaction. Total time spent, exact 35 minutes on discharge meds reconciliation, examination, coordination of care with nurses and ancillary staff, review of imaging and blood test and discussion with the patient on follow-up instructions Physical Exam Narrative Seen and examined. Shortness of breath better and improved. Mild wheezing and cough. On physical exam General: Alert, Oriented x3, Cooperative HEENT: Atraumatic, PERRLA, EOMI, Normocephalic Oral: No Gingival or Mucosal Lesions/ Ulcerations Neck: Supple, No JVD, Negative Carotid Bruits Lungs: Air entry diminished in bilateral lung bases. Mild bilateral expiratory wheezing present. Cardiovascular: Irregular rate and rhythm, Normal S1, Normal S2, No murmurs Abdomen: Bowel Sounds Present, Soft, Non Tender, Non-Distended : No renal angle tenderness. No suprapubic tenderness. Extremities: Improvement in leg edema, Capillary Refill Less than 3 Seconds Skin: No rashes, No breakdown Musculoskeletal: No Tenderness to Palpation of Joints or Extremities Neurological: Cranial nerves II-XII grossly intact, Deep Tendon Reflexes 2+/4 and Symmetrical, Neuro grossly intact Psych/Mental Status: Normal Affect, Appropriate. ABG / Lab / Microbiology Data Result Diagrams: 01/24/21 05:05 01/25/21 05:22 Discharge Plan Admission Admit Date/Time: 01/23/21 20:45 Primary Reason for Your Visit: Atrial fibrillation Attending Provider: Domenic Quintanilla Primary Care Provider: Maicol Lopez Consulting Providers: Andrew Anaya Discharge Orders/Prescriptions Prescriptions: New digoxin 250 mcg (0.25 mg) Tablet 250 mcg PO DAILY Qty: 30 RF: 1 prednisone 10 mg tablet See Taper mg PO DAILY Qty: 30 RF: 0 albuterol sulfate 90 mcg/actuation HFA aerosol inhaler 2 puff inhalation Q6H PRN (Reason: shortness of breath or wheezing) Qty: 6.7 RF: 0 Continued Entresto 24-26 mg tablet 1 tab PO BID Qty: 60 RF: 11 aspirin 81 mg tablet,delayed release (DR/EC) 81 mg PO DAILY@0800 Qty: 30 RF: 12 carvedilol 12.5 mg tablet 12.5 mg PO BID Qty: 60 RF: 12 furosemide 40 mg tablet 40 mg PO DAILY Qty: 30 RF: 12 nitroglycerin 0.4 mg tablet, sublingual 0.4 mg SUBLINGUAL Q5-15M PRN (Reason: chest pain) Qty: 25 RF: 1 potassium chloride 20 mEq tablet extended release 20 meq PO DAILY Qty: 30 RF: 12 pravastatin 80 mg tablet 80 mg PO QHS Qty: 30 RF: 12 rivaroxaban 20 mg tablet 20 mg PO DAILY Qty: 30 RF: 12 Referrals / Follow Up: Maicol Lopez DO [Primary Care Provider] - 02/02/21 2:30 pm Jessica Amaral NP, HEPATOLOGY PHYSICIAN-C [Nurse Practitioner] - Within 2 Weeks (Office should call you to schedule appt, if you don't hear from by 01/26/2021 please call them to schedule. ) Karolina Hernandez, PA [PHYSICIAN MARKETING EFFECTIVENESS MANAGER] - Within 2 Weeks (Office should call you to schedule appt, if you don't hear from them by 01/26/2021 please call them to schedule. ) Disposition Disposition (needs filled in before D/C Order can be placed): Home, Self Care Charges/Coding Visit Charges Inpatient E&M: 43213 Disch Hosp
--- NOTE | 2021-01-25 13:59 | CASEMGMT ---
Per uYri RN, pt qualifies for 2L w/ exertion home oxygen. This RN CM to room and after pt provided list of in-network DME companies, pt chooses [facility]. Order faxed to [facility] and call to Adilene at [facility] to notify of referral and pt discharge today, voices understanding. Mack KING CM
--- NOTE | 2021-01-26 13:28 | CASEMGMT ---
CHRISTINE CM Discharge Follow-Up Phone Call. Lace: 10 Strata: 3 Discharge Date: 01/25/21 Adm Dx: PAF w/RVR Attempted discharge f/u phone call. No answer and message came on stating VM has not been set up yet. Unable to leave a message. Shahbaz BSN RN CM
== END 2021-01-25 16:43 | disposition home or self-care (01) | DRG 309 ==
LOC: ED 20:35 → PCU 21:04
PROVIDERS: Internal Medicine Cardiovascular Disease; Nurse Practitioner Family; Admitting Provider Family Medicine; Emergency Provider Emergency Medicine; PCP Student in an Organized Health Care Education/Training Program; Visit Provider Internal Medicine
DX: I48.19 Other persistent atrial fibrillation (principal); I50.22 Chronic systolic (congestive) heart failure; J44.1 Chronic obstructive pulmonary disease with (acute) exacerbation; Z68.41 Body mass index [BMI] 40.0-44.9, adult; J44.0 Chronic obstructive pulmonary disease with (acute) lower respiratory infection; J20.4 Acute bronchitis due to parainfluenza virus; I25.10 Atherosclerotic heart disease of native coronary artery without angina pectoris; I42.9 Cardiomyopathy, unspecified; E78.5 Hyperlipidemia, unspecified; Z95.5 Presence of coronary angioplasty implant and graft; Z91.14 Patient's other noncompliance with medication regimen; I11.0 Hypertensive heart disease with heart failure; E66.01 Morbid (severe) obesity due to excess calories; I48.92 Unspecified atrial flutter; I25.2 Old myocardial infarction; F17.210 Nicotine dependence, cigarettes, uncomplicated; R09.02 Hypoxemia; Z79.01 Long term (current) use of anticoagulants; Z82.49 Family history of ischemic heart disease and other diseases of the circulatory system
CPT/HCPCS: 36415; 36600; 71045; 80048; 80053; 80061; 82803; 83735; 83880; 84145; 84439; 84443; 84481; 84484; 85025; 87426; 87633; 93005; 93306; 94002; 94003; 94640; 97802; 99285; 99406; J7030; J7040; A4216; J1940